=== PATIENT | female | born 1975 | race Caucasian/White ===

== ENCOUNTER → 2020-11-05 | Outpatient (CLI) | payer OTHER ==
--- NOTE | 2020-11-05 14:28 | Diagnostic Imaging Report ---
PROCEDURE: Pelvic comp/transvaginal sonogram. TECHNIQUE: Complete transabdominal and transvaginal pelvic ultrasound was performed. In addition, limited pelvic Doppler was performed. INDICATION: Ovarian cyst. Uterus is anteverted measuring 7.9 x 3.9 x 4.4 cm. Endometrium is 3 mm in thickness. There is a small cyst adjacent to the endometrium approximately 8 mm in size. Left ovary was not well visualized. Right ovary contains a large mass measuring 8.9 x 7.6 x 6.5 cm. There is internal complexity but no definite internal vascularity. This could represent a large hemorrhagic cyst. No free fluid is seen. IMPRESSION: Large complex right ovarian mass without internal vascularity. This could represent a hemorrhagic cyst. Close follow-up repeat study in 6-8 weeks would be recommended to confirm resolution. Dictated by: Dictated on workstation # [id number]
== END ==
LOC: RAD 13:00
PROVIDERS: ATTEND Obstetrics & Gynecology
DX: N83.201 Unspecified ovarian cyst, right side (principal); N83.8 Other noninflammatory disorders of ovary, fallopian tube and broad ligament
CPT/HCPCS: 76830; 76856

== ENCOUNTER 2020-11-11 05:30 | Outpatient (CLI) | payer OTHER ==
[~2020-11-11] VITALS: Ht 162.6 cm; Wt 44.5 kg
[2020-11-11] MEDS ORDERED: RT-ALBUINH IH (11:04)
[2020-11-11] MEDS ORDERED: L.AC1CAP6 PO (11:04)
[2020-11-11] MEDS ORDERED: LISI-729 PO (11:04)
[2020-11-11] MEDS ORDERED: [UNRECOGNIZED DRUG - CODE] PO (11:04)
[2020-11-11] MEDS ORDERED: MULT-974 PO (11:04)
== END 2020-11-11 11:53 | disposition home or self-care (01) ==
LOC: PREOP 05:30
PROVIDERS: ATTEND Obstetrics & Gynecology
DX: Z01.818 Encounter for other preprocedural examination (principal)

== ENCOUNTER 2020-11-18 08:57 | Inpatient (IN) | payer OTHER ==
[2020-11-18] VITALS (10 sets, daily range): BP systolic 116–150; BP diastolic 61–79
[~2020-11-18] VITALS: Ht 162.6 cm; Wt 44.5 kg
[~2020-11-18 08:57] MED LIST: L.AC1CAP6 PO; LISI-729 PO; MULT-974 PO; RT-ALBUINH IH; [UNRECOGNIZED DRUG - CODE] PO
[2020-11-18] MEDS ORDERED: LACTATED RINGERS 1,000 ML IV ONE (09:15)
[2020-11-18] MEDS ORDERED: ceFAZolin INJECTION 1,000 MG in WATER (STERILE) FOR INJECTION 10 ML IV ONE (09:15)
[2020-11-18] MEDS ORDERED: metroNIDAZOLE 500MG/100ML IVPB 100 ML IV ONE (09:15)
[2020-11-18] MEDS ORDERED: LACTATED RINGERS 1,000 ML IV PRN (09:15)
[2020-11-18 09:43] LABS: BASOPHILS # (AUTO) 0.1 10^3/uL (0.0-0.1); BASOPHILS % (AUTO) 1 % (0-10); EOSINOPHILS # (AUTO) 0.1 10^3/uL (0.0-0.3); EOSINOPHILS % (AUTO) 1 % (0-10); HEMATOCRIT 34 % (35-52); HEMOGLOBIN 10.1 g/dL (11.5-16.0); LYMPHOCYTES % (AUTO) 9 % (12-44); MEAN CORPUSCULAR HEMOGLOBIN 24 pg (25-34); MEAN CORPUSCULAR HGB CONC 30 g/dL (32-36); MEAN CORPUSCULAR VOLUME 80 fL (80-99); MEAN PLATELET VOLUME 8.8 fL (9.0-12.2); MONOCYTES # (AUTO) 0.7 10^3/uL (0.0-1.0); MONOCYTES % (AUTO) 6 % (0-12); NEUTROPHILS # (AUTO) 8.5 10^3/uL (1.8-7.8); NEUTROPHILS % (AUTO) 82 % (42-75); PLATELET COUNT 448 10^3/uL (130-400); WHITE BLOOD COUNT 10.3 10^3/uL (4.3-11.0)
[2020-11-18] MEDS ORDERED: BUPIVACAINE 0.25% 30 ML (SENSORCAINE) VIAL ONE (10:10)
[2020-11-18] MEDS ORDERED: ROCURONIUM 10 MG/ML 5 ML SYRINGE IV ONE (10:11)
[2020-11-18] MEDS ORDERED: proPOfol 200 MG/20 ML (DIPRIVAN) VIAL IV ONE (10:11)
[2020-11-18] MEDS ORDERED: ONDANSETRON 4 MG/2 ML (SDV) Z0FRAN ONE (10:11)
[2020-11-18] MEDS ORDERED: MIDAZOLAM 2 MG/2 ML (VERSED) VIAL ONE (10:11)
[2020-11-18] MEDS ORDERED: LIDOCAINE PF 2% 5 ML (XYLOCAINE) VIAL ONE (10:11)
[2020-11-18] MEDS ORDERED: fentaNYL INJ 100 MCG/2 ML AMP ONE ×2 (10:11→11:14)
[2020-11-18] MEDS ORDERED: NEOSTIGMINE 3 MG/3 ML VIAL ONE (10:16)
[2020-11-18] MEDS ORDERED: KETOROLAC 30 MG/ML VIAL ONE (10:16)
[2020-11-18] MEDS ORDERED: SEVOFLURANE (ULTANE) 15 ML INHAL SOLN ONE ×13 (10:16→13:01)
[2020-11-18] MEDS ORDERED: GLYCOPYRROLATE 0.2 MG/ML (ROBINUL) 2 ML VIAL ONE (10:16)
--- NOTE | 2020-11-18 10:20 | Progress Note-Pre Operative ---
Pre-Operative Progress Note H&P Reviewed The H&P was reviewed, patient examined and no changes noted. Date Seen by Provider: November 18, 2020 Time Seen by Provider: 10:00 Date H&P Reviewed: November 18, 2020 Time H&P Reviewed: 10:00 Pre-Operative Diagnosis: Pelvic Mass 8 cm, AUB, Dysmenorrea, CBL Anemia AVI FULLER DO November 18, 2020 10:20
--- NOTE | 2020-11-18 10:28 | Discharge Inst-Women's Service ---
Discharge Inst-Women's Serv Depart Medication/Instructions New, Converted or Re-Newed RX: RX on Chart Problems Reviewed?: Yes Consults/Follow Up Additional Follow Up: Yes Orders/Referrals Dr. Daily in 7-10 days and in 8 weeks Activity Activity: Activity as Tolerated Driving Instructions: No Driving for 1 Week NO SMOKING: NO SMOKING Nothing Inside Vagina: No Douching, No Kinderhook, No Tampons Diet Discharge Diet: No Restrictions Symptoms to Report to : Bleeding Excessive, Pain Increased, Fever Over 101 Degrees F, Vaginal Bleeding Increase, Questions/Concerns For Any Problems or Questions: Contact Your Physician Skin/Wound Care Infection Signs and Symptoms: Increased Redness, Foul Odor of Wound, Increased Drainage, Skin Itchy or Has a Rash, Increased Swelling, Temperature Above 101 F Operative Area Clean and Dry: Keep Incision Clean/Dry Stitches/Chun/Dermabond: Dermabond, Care of Stitches Bathing Instructions: AVI Horowitz DO November 18, 2020 10:28
[2020-11-18] MEDS ORDERED: HYDR-34 PO (10:30)
[2020-11-18] MEDS ORDERED: IBUP-844 PO (10:30)
[2020-11-18] MEDS ORDERED: HYDROcodone/APAP 7.5 MG/325 MG (LORTAB, LORCET PLUS) TABLET PO PRN (10:30)
[2020-11-18] MEDS ORDERED: ANTACID SUSP 30 ML UDC (MYLANTA) PO PRN (10:30)
[2020-11-18] MEDS ORDERED: CHLORASEPTIC LOZENGE MM PRN (10:30)
[2020-11-18] MEDS ORDERED: ZOLPIDEM 5 MG (AMBIEN) TAB PO PRN (10:30)
[2020-11-18] MEDS ORDERED: SMT80CT PO (10:30)
[2020-11-18] MEDS ORDERED: DCS100C PO (10:30)
[2020-11-18] MEDS ORDERED: morphine INJ 10 MG/ML 1ML (SYR OR VIAL) IVP ONE (13:30)
[2020-11-18] MEDS ORDERED: ONDANSETRON 4 MG/2 ML (SDV) Z0FRAN IVP PRN (13:30)
[2020-11-18] MEDS ORDERED: HYDROmorphone 2 MG/ML VIAL (DILAUDID) IV ONE (13:30)
[2020-11-18] MEDS ORDERED: PROMETHAZINE INJ 25 MG/ML (PHENERGAN) AMP IVP ONE (13:30)
[2020-11-18] MEDS ORDERED: MEPERIDINE (DEMEROL) INJ 50 MG/ML IVP ONE (13:30)
[2020-11-18] MEDS ORDERED: PROMETHAZINE INJ 25 MG/ML (PHENERGAN) AMP IVP PRN (14:45)
--- NOTE | 2020-11-18 14:49 | Progress Note-Post Operative ---
Post-Operative Progess Note Surgeon (s)/Food And Nutrition Services Supervisor (s) Surgeon KELSEY OLGUIN DO Food And Nutrition Services Supervisor: [place] Pre-Operative Diagnosis Pelvic Mass 8 cm, AUB, Dysmenorrea, CBL Anemia Post-Operative Diagnosis Pelvic Abscess small bowel perforation Procedure & Operative Findings Date of Procedure 11/18/20 Procedure Performed/Findings small bowel resection x 2 lysis of adhesions Anesthesia Type GET Estimated Blood Loss Estimated blood loss (mL): minimal Specimens/Packing Specimens Removed portion of small bowel KELSEY OLGUIN DO November 18, 2020 14:49
[2020-11-18] MEDS ORDERED: SCOPOLAMINE 1.5 MG (TRANSDERM-SCOP) PATCH TD NR (15:00)
[2020-11-18] MEDS: HYDROmorphone 2 MG/ML VIAL (DILAUDID) IV PRN ×2 (15:07→18:19)
--- NOTE | 2020-11-18 18:48 | OPERATIVE REPORT ---
DATE OF SERVICE: PREOPERATIVE DIAGNOSES: 1. A 45-year-old female with pelvic mass. 2. Abnormal uterine bleeding. 3. Chronic pelvic pain. 4. Chronic blood loss anemia. POSTOPERATIVE DIAGNOSES: 1. A 45-year-old female with pelvic mass. 2. Abnormal uterine bleeding. 3. Chronic pelvic pain. 4. Chronic blood loss anemia. 5. Extensive and diffuse adhesive disease of the abdomen suspicious for chronic pelvic inflammatory disease. 6. Right tubo-ovarian abscess. 7. Incidental damage to small bowel. PROCEDURES PERFORMED: 1. Laparoscopic robotic-assisted lysis of adhesions with conversion to laparotomy, total abdominal hysterectomy with bilateral salpingo-oophorectomy and removal of right-sided tubo-ovarian abscess. 2. Incidental small bowel injury with small bowel resection performed by Walter Fox DO. PRIMARY SURGEON: Shan Daily DO. CONSULTING SURGEON: Dr. Waletr Fox DO. ENGINE SERVICE REPAIRER: Faviola Rodríguez DNP, was necessary for manipulation and retraction throughout the procedure. ANESTHESIA: General endotracheal. ESTIMATED BLOOD LOSS: 200 mL. URINE OUTPUT: 350 mL clear at the end of the procedure. FLUIDS: 2000 mL lactated Ringer's solution. FINDINGS: Extensive filmy adhesions of the small bowel, large bowel as well as dense adhesions of the small bowel to the posterior aspect of the uterus. A grossly normal appearing left ovary and tube, normal appearing uterus on gross inspection and obliterated right adnexa incorporating the right fallopian tube and ovary, which is also incorporated in this large edematous mass that is filled with purulent exudate suspicious for tubo-ovarian abscess. SPECIMEN SENT: Uterus, left fallopian tube and ovary, right fallopian tube and ovary were sent separately. INDICATIONS FOR PROCEDURE: This 45-year-old female patient, who consulted to me after emergency room visit, demonstrated an 8 cm adnexal or ovarian mass. Upon ultrasound evaluation, it looked multiloculated, but she had no other concerning malignancy findings. She had a slightly elevated CA-125. This is likely due from chronic inflammation, retrospectively, when we looked at this. There was no ascites noted on CT. There was no pelvic lymphadenopathy or periaortic lymphadenopathy. Therefore, I discussed with the patient the risk of malignancy. However, I did not feel like this was the case with her. I discussed with her performing this minimally invasively. We discussed Robotic-assisted total laparoscopic hysterectomy as both a method to remove the uterus and the right ovary. She did have a history of chronic blood loss anemia and had been on iron for years. She believes it was due to her heavy periods. Risks of the procedure were discussed with the patient in detail including risk of bleeding, infection, damage to the surrounding structures including, but not limited to bowel, bladder, ureter, kidneys, possible need for reoperation, risk from anesthesia, possible need for laparotomy, possible need for reoperation, possible need for blood transfusion and even . After everything was discussed with the patient in detail, a consent was obtained in the preoperative area and the patient was taken to the operating room. OPERATIVE REPORT IN DETAIL: Once in the operating room, general anesthesia was found to be adequate, she was placed in a dorsal lithotomy position, prepped and draped in a normal sterile fashion. A timeout was performed. Dupree catheter was placed using sterile technique. Weighted speculum was inserted to the patient's vagina. Right angle retractor was used to visualize the cervix, which was fixed anteriorly and stuck to the anterior abdominal wall that you could palpate on bimanual examination. I was, however, able to grasp the cervix using a single tooth tenaculum and placed a 0 Vicryl suture through the anterior lip of the cervix and used the suture as my retraction point. I then was able to sound the uterine cavity, depth was found to be 8 cm. I placed a Leah uterine manipulator to a depth of 8 cm and I placed a 4 cm colpotomy ring around the vaginal fornix. However, due to the uterus being fixated to the anterior abdominal wall, at this point, there is no bimanual manipulation appreciated on bimanual exam. I performed a change of gloves and took my attention to the abdomen, where I began by infiltrating infraumbilically 0.25% Marcaine and made an 8 mm incision with a knife and directed a Veress needle through the incision, intraperitoneal placement was confirmed using saline drop test. An opening pressure of 5 mmHg was noted. I proceeded to max pressure of 15 mmHg, at which point, I removed the Veress needle and introduced an 8 mm laparoscopic da Adela camera trocar. Once this was in place, I was able to confirm intraperitoneal placement using the da Adela laparoscope. There was no evidence of damage from entry site; however, there were filmy adhesions throughout the entire abdomen. I was able to clear the place on the left side, so the left sided trocar was placed in similar fashion under direct visualization of the laparoscope. This allowed me to introduce EndoShears, which I was able to take down the filmy adhesions and able to visualize an entry point for my right sided trocar as well. Once this trocar was in place, I brought in the da Adela robot and docked in appropriate fashion placing the vessel sealer on the left hand and monopolar jatin on the right hand. I started by taking down these adhesions. I would say good 45 minutes to an hour worth of adhesion takedown took place to the point, where I met the dense adhesion that I was unable to safely take down. There was a concern for possible bowel injury due to the dense adhesive nature of these adhesions to the serosal surface of the posterior uterus. Therefore, general surgery was contacted to come and evaluate this further. However, I did accept the fact that I was not going to be able to complete the case laparoscopically that way. Therefore, I aborted the laparoscopic procedure and decided to proceed with laparotomy. I removed all the laparoscopic instruments and undocked the da Adela robot and scrubbed back into the case, where I made a Pfannenstiel skin incision through a previously existing scar using a knife and carried down to the underlying fascia using Bovie cautery. The fascial incision extended laterally using Bovie cautery. Superior aspect of the fascial incision was grasped with Nargis clamps, tented up and dissected off the underlying rectus muscles. The inferior aspect of the fascial incision was then grasped with Nargis clamps, tented upward and dissected off the underlying rectus muscles. This allowed me to separate the rectus muscle down the midline, entered the peritoneum using blunt traction and the pneumoperitoneum was encountered and released through the incision. I then was able to open up the peritoneum down the midline of the rectus muscles. This gave me access to the peritoneal cavity after which I placed an extra-large Kemal ring retractor in peritoneal incision, which offers excellent lateral sidewall retraction. I, at this point, was joined by the general surgeon, Dr. Walter Fox, who evaluated what is going on. So far, there was one small opening in the small bowel that was noted at that point. We continued with the hysterectomy portion and were able to free up the posterior aspect of the uterus. In doing so, a second laceration of the small bowel was noted as well. We then isolated the infundibulopelvic ligament on the left side. Using a LigaSure, we bipolar cauterized the seal and transected this. I then took this down the left broad ligament until I encountered the round ligament, which I, in similar fashion sealed and transected using the vessel sealer LigaSure device. I then the anterior and posterior leaves of the broad ligament. Anterior leaflet was taken around the anterior vaginal fornix and posterior leaflets was taken around the posterior vaginal fornix. This allowed me to skeletonize the uterine vessels laterally, which I bipolar cauterized, sealed and transected using the LigaSure. On the right side, I started at the uteroovarian ligament, which we were able to isolate therefore taking down these adhesions. I sealed and cut with the LigaSure across this as well as the round ligament. This allowed me to skeletonize the uterine vessels laterally once I opened up the broad ligament. The uterine vessels were then sealed and transected using the LigaSure as well. I then was able to create a colpotomy at the 12 o'clock position on the colpotomy ring of the Leah, which can be palpated. This was taken down using a Bovie cautery circumferentially around the vaginal fornix amputating the uterus away from the vagina. The cyst wall and dense adhesions of the cyst tissue was then encountered and carefully meticulously dissected away from the pelvic sidewall, staying clear of the ureters and identifying the ureters on the way down. We were able to isolate the infundibulopelvic ligament on the right side, which we were able to seal and transect using the LigaSure. The entire specimen was then removed as well and sent separately as right ovary, at which point, there were several small serosal lacerations as well as two lacerations all the way through to the lumen of the small bowel that are noted by the general surgeon. Please see his operative report for complete details pertaining to repairing all of these after which we copiously irrigated the pelvis using normal saline. Once again, there was no active bleeding noted from any of my dissection planes or the vagina. We closed the vaginal cuff using 0 Vicryl suture in a [id number]-[id number] interrupted fashion and placed Surgiflo hemostatic agent over all my planes of dissection across the vaginal cuff. At that point, procedure was deemed complete and we removed the Kemal ring retractor. I then proceeded with closing the peritoneum using 3-0 Vicryl suture in a running fashion. The rectus muscle was reapproximated using 3-0 Vicryl suture in an interrupted fashion. The fascia was reapproximated using 0 Vicryl suture in a running fashion and the skin was reapproximated with oseas. The trocar sites were reapproximated using 4-0 Monocryl in interrupted subcuticular stitches. Dermabond was applied to those incisions and Band-Aids were placed over these incisions as well. Dupree catheter was left in place. The patient tolerated the procedure well and sent to recovery area in stable condition. Lap and sponge counts were correct at the end of the procedure. Instrument counts were correct as well. One gram of Ancef, 500 mg of Flagyl were given preoperatively for infection prophylaxis. Job ID: [id number] DocumentID: [id number] Dictated Date: 11/18/2020 13:50:52 Freelance Programmer/App Developer Date: 11/18/2020 18:47:48 Dictated By: SHAN DAILY DO
[2020-11-18] MEDS: LACTATED RINGERS 1,000 ML IV SCH (19:01)
[2020-11-18] MEDS: ceFAZolin INJECTION 1,000 MG in WATER (STERILE) FOR INJECTION 10 ML IV SCH (19:32)
[2020-11-18] MEDS: metroNIDAZOLE 500MG/100ML IVPB 100 ML IV SCH (21:25)
[2020-11-18] MEDS: KETOROLAC 30 MG/ML VIAL IV PRN (21:25)
[2020-11-19] VITALS (7 sets, daily range): BP systolic 111–134; BP diastolic 56–66
[2020-11-19] MEDS: HYDROmorphone 2 MG/ML VIAL (DILAUDID) IV PRN ×2 (00:30→06:53)
[2020-11-19] MEDS: LACTATED RINGERS 1,000 ML IV SCH ×2 (00:56→03:34)
[2020-11-19] MEDS ORDERED: KETOROLAC 30 MG/ML VIAL ONE (02:51)
[2020-11-19] MEDS: KETOROLAC 30 MG/ML VIAL IV PRN (03:34)
[2020-11-19] MEDS: ceFAZolin INJECTION 1,000 MG in WATER (STERILE) FOR INJECTION 10 ML IV SCH ×3 (03:34→18:51)
[2020-11-19 05:38] LABS: BASOPHILS % (AUTO) 0 % (0-10); EOSINOPHILS % (AUTO) 0 % (0-10); HEMATOCRIT 25 % (35-52); HEMOGLOBIN 7.6 g/dL (11.5-16.0); LYMPHOCYTES # (AUTO) 1.3 10^3/uL (1.0-4.0); LYMPHOCYTES % (AUTO) 10 % (12-44); MEAN CORPUSCULAR HEMOGLOBIN 24 pg (25-34); MEAN CORPUSCULAR HGB CONC 31 g/dL (32-36); MEAN CORPUSCULAR VOLUME 80 fL (80-99); MEAN PLATELET VOLUME 9.1 fL (9.0-12.2); MONOCYTES # (AUTO) 0.9 10^3/uL (0.0-1.0); MONOCYTES % (AUTO) 7 % (0-12); NEUTROPHILS # (AUTO) 10.7 10^3/uL (1.8-7.8); NEUTROPHILS % (AUTO) 83 % (42-75); PLATELET COUNT 413 10^3/uL (130-400); WHITE BLOOD COUNT 12.9 10^3/uL (4.3-11.0)
[2020-11-19] MEDS: IBUPROFEN 600 MG (MOTRIN) TAB PO SCH ×3 (06:17→22:33)
--- NOTE | 2020-11-19 07:00 | Anesthesia-General Post-Op ---
General Patient Condition Mental Status/LOC: Same as Preop Cardiovascular: Satisfactory Nausea/Vomiting: Absent Respiratory: Satisfactory Pain: Controlled Complications: Absent Post Op Complications Complications None Follow Up Care/Instructions Patient Instructions None needed. Anesthesia/Patient Condition Patient Condition Patient is doing well, no complaints, stable vital signs, no apparent adverse anesthesia problems. No complications reported per nursing. TERESSA STILES CRNA November 19, 2020 07:00
--- NOTE | 2020-11-19 08:02 | Progress Note ---
Standard Progress Note Progress Notes/Assess & Plan Date Seen by a Provider: November 19, 2020 Time Seen by a Provider: 07:58 Progress/Assessment & Plan Patient doing well POD 1 Laparotomy w/ DAVE and BSO, extensive CLARITA, and SB repair/ resection. Reports no nausea and is requesting to eat, has been NPO overnight. Denies uncontrolled pain. Dupree catheter removed this morning. Incisions: c/d/i Laboratory Tests Test 11/18/20 09:32 11/19/20 05:17 Range/Units White Blood Count 10.3 12.9 H 4.3-11.0 10^3/uL Red Blood Count 4.19 3.12 L 3.80-5.11 10^6/uL Hemoglobin 10.1 L 7.6 #L 11.5-16.0 g/dL Hematocrit 34 L 25 L 35-52 % Mean Corpuscular Volume 80 80 80-99 fL Mean Corpuscular Hemoglobin 24 L 24 L 25-34 pg Mean Corpuscular Hemoglobin Concent 30 L 31 L 32-36 g/dL Red Cell Distribution Width 20.0 H 19.7 H 10.0-14.5 % Platelet Count 448 H 413 H 130-400 10^3/uL Mean Platelet Volume 8.8 L 9.1 9.0-12.2 fL Immature Granulocyte % (Auto) 0 0 % Neutrophils (%) (Auto) 82 H 83 H 42-75 % Lymphocytes (%) (Auto) 9 L 10 L 12-44 % Monocytes (%) (Auto) 6 7 0-12 % Eosinophils (%) (Auto) 1 0 0-10 % Basophils (%) (Auto) 1 0 0-10 % Neutrophils # (Auto) 8.5 H 10.7 H 1.8-7.8 10^3/uL Lymphocytes # (Auto) 1.0 1.3 1.0-4.0 10^3/uL Monocytes # (Auto) 0.7 0.9 0.0-1.0 10^3/uL Eosinophils # (Auto) 0.1 0.0 0.0-0.3 10^3/uL Basophils # (Auto) 0.1 0.0 0.0-0.1 10^3/uL Immature Granulocyte # (Auto) 0.0 0.0 0.0-0.1 10^3/uL Vital Sign - Last 24 Hours 5/10/21 5/10/21 5/10/21 5/10/21 13:26 13:26 13:30 13:40 Temp 37.6 Resp 16 16 B/P (MAP) 117/74 (88) 131/75 (93) Pulse Ox 100 100 O2 Delivery OxyMask OxyMask OxyMask OxyMask O2 Flow Rate 10 10 8 8 11/18/20 11/18/20 11/18/20 11/18/20 13:40 13:50 14:00 14:00 Resp 14 15 16 B/P (MAP) 150/79 (102) 125/72 (89) 121/64 (83) Pulse Ox 100 100 100 O2 Delivery OxyMask OxyMask OxyMask OxyMask O2 Flow Rate 6 3 2 2 11/18/20 11/18/20 11/18/20 11/18/20 14:10 14:15 14:20 14:23 Temp 37.0 Resp 14 14 B/P (MAP) 118/65 (82) 127/65 (85) Pulse Ox 100 100 O2 Delivery Room Air Room Air Room Air Room Air 11/18/20 11/18/20 11/18/20 11/19/20 14:35 17:05 19:50 00:30 Temp 36.7 37.3 37.0 37.2 Pulse 92 102 95 102 Resp 20 20 20 20 B/P (MAP) 116/65 (82) 130/78 (95) 116/61 (79) 127/64 (85) Pulse Ox 98 99 99 98 O2 Delivery Room Air Room Air Room Air Room Air 11/19/20 03:34 Temp 37.0 Pulse 99 Resp 18 B/P (MAP) 120/66 (84) Pulse Ox 98 O2 Delivery Room Air Intake and Output 11/18/20 11/18/20 11/19/20 15:00 23:00 07:00 Intake Total 1510 ml 1100 ml Output Total 550 ml 90 ml 460 ml Balance 960 ml 1010 ml -460 ml Diagnosis: POD 1 Laparotomy w/ DAVE and BSO, extensive CLARITA, and SB repair/ resection Acute blood loss anemia superimposed on chronic blood loss anemia P: Advance diet to CLD today possible soft this afternoon Encourage ambulation Continue antibiotic until tomorrow AVI FULLER DO November 19, 2020 08:02
[2020-11-19] MEDS: metroNIDAZOLE 500MG/100ML IVPB 100 ML IV SCH ×2 (09:26→21:01)
[2020-11-19] MEDS ORDERED: KETOROLAC 30 MG/ML VIAL IV PRN (11:00)
[2020-11-19] MEDS ORDERED: ACETAMINOPHEN 500 MG TAB (TYLENOL) ONE (15:34)
[2020-11-19] MEDS ORDERED: ACETAMINOPHEN 500 MG TAB (TYLENOL) PO NR (15:45)
--- NOTE | 2020-11-19 16:19 | OPERATIVE REPORT ---
DATE OF SERVICE: 11/18/2020 PREOPERATIVE DIAGNOSIS: Small bowel perforation. POSTOPERATIVE DIAGNOSES: Small bowel perforation, adhesions tubo-ovarian abscess. PROCEDURE: Small bowel resection x2 as well as lysis of adhesions. SURGEON: Walter Fox DO MEAT PASSER: Dr. Daily. ANESTHESIA: General endotracheal tube. SPECIMEN: Portion of small bowel. BLOOD LOSS: Minimal. FLUIDS: Per anesthesia. POSTOPERATIVE CONDITION: Stable. INDICATION FOR PROCEDURE: Small bowel perforation. PROCEDURE NOTE: The patient is a 45-year-old female who was in the operating room for a hysterectomy and removal of tubo-ovarian abscess. When a small bowel perforation was found, I was called in to assist in this case. I took over to do the small bowel resection. FINDINGS: The patient had large tubo-ovarian abscess on the right and had a lot of small intestine stuck down in the pelvis next to this tubo-ovarian abscess as well as the sigmoid stuck in there. I clamped off the superior portion of the intestine and we started helped Dr. Daily finish taking out the uterus, helped him delineate the tube and ovary on the right as well as then on the left. Once we had removed all this, then started taking the small bowel out of the pelvis to then lysing adhesions and freeing up everything, so we could start running the small bowel, found actually two perforations. I believe one of them may have been just from trying to get the small bowel out of the pelvis, resected this with a FAHAD 55 on either side in either the inferior and superior limb of the small intestine, clamped a FAHAD 55, held for 30 seconds, then fired and then used another reload to cut off the enteroenterotomy and then used the LigaSure to close the mesenteric defect and then running the small bowel went to the larger and the initial perforation. Again used a FAHAD 55 through the opening of the perforation, this was about 15 to 20 cm from the other perforation. Another FAHAD 55 clamped held for 30 seconds and then fired and then another AFHAD 55 reload to come across the enteroenterotomy to close this, this closed nicely. There was a serosal tear on the sigmoid. This was closed with 3-0 Vicryl pop-offs, 3 awarba-av-rdurq sutures and one simple suture as well as another serosal tear on the small intestine was closed with 3-0 Vicryl pop-offs, 2 rzkxam-rx-wneje suture closed this nicely. The abdomen was then copiously irrigated with normal saline, 2 liters warm normal saline, suctioned this out. There was no bleeding, tried to run some of the smaller, rest of the small bowel could not get up very high because there is some more adhesions up here and this was a Pfannenstiel incision, but felt comfortable that we had looked at and taken care of everything that was in the pelvis and near the tubo-ovarian abscess. At this point, I then scrubbed out and looked Dr. Daily finish the case. Job ID: [id number] DocumentID: [id number] Dictated Date: 11/19/2020 10:21:47 History Professor Date: 11/19/2020 16:18:26 Dictated By: WALTER FOX DO
[2020-11-19] MEDS: SIMETHICONE 80 MG (MYLICON) CHEW PO PRN ×2 (17:50→22:01)
[2020-11-19 17:52] LABS: BASOPHILS % (AUTO) 0 % (0-10); EOSINOPHILS # (AUTO) 0.1 10^3/uL (0.0-0.3); EOSINOPHILS % (AUTO) 1 % (0-10); HEMATOCRIT 24 % (35-52); HEMOGLOBIN 7.5 g/dL (11.5-16.0); LYMPHOCYTES # (AUTO) 1.2 10^3/uL (1.0-4.0); LYMPHOCYTES % (AUTO) 12 % (12-44); MEAN CORPUSCULAR HEMOGLOBIN 25 pg (25-34); MEAN CORPUSCULAR HGB CONC 31 g/dL (32-36); MEAN CORPUSCULAR VOLUME 80 fL (80-99); MEAN PLATELET VOLUME 8.6 fL (9.0-12.2); MONOCYTES # (AUTO) 0.7 10^3/uL (0.0-1.0); MONOCYTES % (AUTO) 7 % (0-12); NEUTROPHILS # (AUTO) 8.4 10^3/uL (1.8-7.8); NEUTROPHILS % (AUTO) 80 % (42-75); PLATELET COUNT 382 10^3/uL (130-400); WHITE BLOOD COUNT 10.5 10^3/uL (4.3-11.0)
--- NOTE | 2020-11-19 18:35 | Progress Note - Surgery ---
Subjective Time Seen by a Provider: 13:01 Subjective/Events-last exam Pt seen and examined, she looks great with pain well controlled. States she has been "walking laps" and using IS. She has not had any flatus or BMs. She tolerated some soft food and was asking when she could come home. Nurse stated pt had been running low grade fever all day and then around 5pm, had temp over 101 and had some abdominal distention. I saw her again around 5pm and she still looked ok, but possibly a little sick. She stated she ran a temp after her last and thought that her stomach was maybe slightly distended, didn't really have any more abdominal pain. Still no flatus. Review of Systems General: Fatigue, Malaise Pulmonary: No Dyspnea, No Cough Cardiovascular: No: Chest Pain, Palpitations Gastrointestinal: Abdominal Pain; No: Nausea, Vomiting Objective Exam Vital Signs Date Time Temp Pulse Resp B/P (MAP) Pulse Ox O2 Delivery O2 Flow Rate FiO2 11/19/20 17:05 38.6 100 18 134/63 (86) 100 Room Air 11/19/20 12:40 37.9 90 18 128/61 (83) 100 Room Air 11/19/20 09:15 37.7 94 18 111/58 (75) 97 Room Air 11/19/20 03:34 37.0 99 18 120/66 (84) 98 Room Air 11/19/20 00:30 37.2 102 20 127/64 (85) 98 Room Air 11/18/20 19:50 37.0 95 20 116/61 (79) 99 Room Air I & O 11/19/20 07:00 Intake Total 2610 ml Output Total 1100 ml Balance 1510 ml Capillary Refill : General Appearance: No Apparent Distress, WD/WN, Other (Looked slightly worse when I saw pt again in afternoon) Respiratory: Lungs Clear, Normal Breath Sounds, No Accessory Muscle Use, No Respiratory Distress Gastrointestinal: soft, distended (very slightly, but more than at 1pm), tenderness (minimal diffusely but more in suprapubic area), other (incisions are c/d/i) Neurologic/Psychiatric: Alert, Oriented x3 Results Lab Laboratory Tests 11/19/20 05:17: White Blood Count 12.9H, Red Blood Count 3.12L, Hemoglobin 7.6#L, Hematocrit 25L , Mean Corpuscular Volume 80, Mean Corpuscular Hemoglobin 24L, Mean Corpuscular Hemoglobin Concent 31L, Red Cell Distribution Width 19.7H, Platelet Count 413H, Mean Platelet Volume 9.1, Immature Granulocyte % (Auto) 0, Neutrophils (%) (Auto) 83H, Lymphocytes (%) (Auto) 10L, Monocytes (%) (Auto) 7, Eosinophils (%) (Auto) 0, Basophils (%) (Auto) 0, Neutrophils # (Auto) 10.7H, Lymphocytes # (Auto) 1.3, Monocytes # (Auto) 0.9, Eosinophils # (Auto) 0.0, Basophils # (Auto) 0.0, Immature Granulocyte # (Auto) 0.0 11/19/20 17:45: White Blood Count 10.5, Red Blood Count 3.02L, Hemoglobin 7.5L, Hematocrit 24L, Mean Corpuscular Volume 80, Mean Corpuscular Hemoglobin 25, Mean Corpuscular Hemoglobin Concent 31L, Red Cell Distribution Width 19.7H, Platelet Count 382, Mean Platelet Volume 8.6L, Immature Granulocyte % (Auto) 1, Neutrophils (%) (Auto) 80H, Lymphocytes (%) (Auto) 12, Monocytes (%) (Auto) 7, Eosinophils (%) (Auto) 1, Basophils (%) (Auto) 0, Neutrophils # (Auto) 8.4H, Lymphocytes # (Auto) 1.2, Monocytes # (Auto) 0.7, Eosinophils # (Auto) 0.1, Basophils # (Auto) 0.0, Immature Granulocyte # (Auto) 0.1 Microbiology 11/18/20 MRSA Screen - Final, Complete MRSA not isolated Assessment/Plan Assessment/Plan Assessment/Plan S/P SBR x 2 Mild abdominal distention Elevated temp I think pt probably just had mild distention because she has not had any flatus. She can continue soft diet or go to clears. She should continue to ambulate an d use IS. Chewing gum may help, because it helps with return of bowel function. Dr. Daily repeated a CBC; it looked basically the same with Hg stable and WBC actually down to 10.5 from 12.4. We will see how she does overnight and in the am. She had no questions. KELSEY OLGUIN DO November 19, 2020 18:35
[2020-11-20] MEDS: IBUPROFEN 600 MG (MOTRIN) TAB PO SCH ×5 (00:59→21:19)
[2020-11-20] MEDS: LACTATED RINGERS 1,000 ML IV SCH (02:46)
[2020-11-20] MEDS: ceFAZolin INJECTION 1,000 MG in WATER (STERILE) FOR INJECTION 10 ML IV SCH ×3 (02:46→19:35)
[2020-11-20 03:59] VITALS: BP 119/63
--- NOTE | 2020-11-20 08:15 | Progress Note ---
Standard Progress Note Progress Notes/Assess & Plan Date Seen by a Provider: November 20, 2020 Time Seen by a Provider: 08:15 Progress/Assessment & Plan Patient doing well POD 2 Laparotomy w/ DAVE and BSO, extensive CLARITA, and SB repair/ resection. Reports no nausea and but no flatus still. She reports she can feel her bowel "gurgling". Her pain is fairly well controlled but she is not taking any narcotic pain meds, only motrin and tylenol. Incisions: c/d/i Abdomen: soft/ mildly tender diffusely and mildly distended. Incision: c/d/i- oseas in place Laboratory Tests Test 11/19/20 17:45 Range/Units White Blood Count 10.5 4.3-11.0 10^3/uL Red Blood Count 3.02 L 3.80-5.11 10^6/uL Hemoglobin 7.5 L 11.5-16.0 g/dL Hematocrit 24 L 35-52 % Mean Corpuscular Volume 80 80-99 fL Mean Corpuscular Hemoglobin 25 25-34 pg Mean Corpuscular Hemoglobin Concent 31 L 32-36 g/dL Red Cell Distribution Width 19.7 H 10.0-14.5 % Platelet Count 382 130-400 10^3/uL Mean Platelet Volume 8.6 L 9.0-12.2 fL Immature Granulocyte % (Auto) 1 % Neutrophils (%) (Auto) 80 H 42-75 % Lymphocytes (%) (Auto) 12 12-44 % Monocytes (%) (Auto) 7 0-12 % Eosinophils (%) (Auto) 1 0-10 % Basophils (%) (Auto) 0 0-10 % Neutrophils # (Auto) 8.4 H 1.8-7.8 10^3/uL Lymphocytes # (Auto) 1.2 1.0-4.0 10^3/uL Monocytes # (Auto) 0.7 0.0-1.0 10^3/uL Eosinophils # (Auto) 0.1 0.0-0.3 10^3/uL Basophils # (Auto) 0.0 0.0-0.1 10^3/uL Immature Granulocyte # (Auto) 0.1 0.0-0.1 10^3/uL Vital Sign - Last 24 Hours 11/19/20 11/19/20 11/19/20 11/19/20 09:15 12:40 17:05 20:16 Temp 37.7 37.9 38.6 37.6 Pulse 94 90 100 95 Resp 18 18 18 B/P (MAP) 111/58 (75) 128/61 (83) 134/63 (86) 120/56 (77) Pulse Ox 97 100 100 98 O2 Delivery Room Air Room Air Room Air Room Air 11/19/20 11/20/20 23:39 03:59 Temp 37.6 37.2 Pulse 94 83 Resp 18 18 B/P (MAP) 130/58 (82) 119/63 (81) Pulse Ox 98 97 O2 Delivery Room Air Room Air Intake and Output 11/19/20 11/19/20 11/20/20 14:59 22:59 06:59 Intake Total 700 ml 500 ml Output Total 600 ml 900 ml Balance 100 ml -400 ml Diagnosis: POD 2 Laparotomy w/ DAVE and BSO, extensive CLARITA, and SB repair/ resection Acute blood loss anemia superimposed on chronic blood loss anemia P: Will attempt to advance diet again today Encourage ambulation Will dc today with flatulance/or BM AVI FULLER DO November 20, 2020 08:15
[2020-11-20 09:10] VITALS: BP 132/76
[2020-11-20] MEDS: DOCUSATE SODIUM 100 MG (COLACE) CAP PO PRN (09:12)
[2020-11-20] MEDS: metroNIDAZOLE 500MG/100ML IVPB 100 ML IV SCH ×2 (10:11→22:31)
[2020-11-20] MEDS: ONDANSETRON 4 MG/2 ML (SDV) Z0FRAN IV PRN ×2 (10:33→15:54)
--- NOTE | 2020-11-20 12:30 | Discharge Inst-Surgical ---
Discharge Inst-Surgical Depart Medication/Instructions New, Converted or Re-Newed RX: Other Patient Instructions Follow up Appt: Make appointment for 1 week. [phone] Instructions: No lifting greater than 20 pounds. No strenuous activity. May shower in 24 hours, no tub bath or soaking. Use incentive spirometer at home as directed. No Smoking Skin/Wound Care: May remove bandages in am. You need to leave the Dermabond on incision it will fall off on it's own. Symptoms to Report: Appetite Changes, Extremity Discoloration, Numbness/Tingling, Swelling Increased, Bleeding Excessive, Eyesight Changes, Pain Increased, Urine Color Change, Constipation(Persistent), Fever over 101 degree F, Pain/Pressure in chest, Urinating Difficulty, Cough Up/Vomit Blood, Heart Beat Irreg/Pounding, Pain/Pressure in jaw, Cramps in feet or legs, Lightheadedness, Pain/Pressure in shoulder, Diarrhea(Persistent), Memory Changes Suddenly, Questions/Concerns, Weight gain consecutive days, Dizziness/Fainting, Nausea/Vomiting, Shortness of Breath, Weight gain over 2 pounds If questions or concerns contact your physician Or seek help at emergency department. Activity Activity as Tolerated: Yes Activity Instructions: Avoid Stress to Incision Driving Instructions: No Driving/Refer to Dr. Aburto Discharge Diet: No Restrictions Diet After 24 Hours: Clear Liquid if Nauseous If Any Problems/Questions/Issu: Contact Your Physician, Go to Emergency Room Skin/Wound Care Infection Signs and Symptoms: Increased Redness, Foul Odor of Wound, Increased Drainage, Skin Itchy or Has a Rash, Increased Swelling, Temperature Above 101 F Bathing Instructions: Shower Stitches/[place]/Dermabond Dis: Care of KELSEY Toribio DO November 20, 2020 12:30
--- NOTE | 2020-11-20 12:30 | Progress Note - Surgery ---
Subjective Time Seen by a Provider: 10:21 Subjective/Events-last exam Pt seen and examined, she was standing up ready to go for a walk. Reports 2 episodes of flatus, but felt a little nauseous. Review of Systems Pulmonary: No Dyspnea, No Cough Cardiovascular: No: Chest Pain, Palpitations Gastrointestinal: Nausea, Abdominal Pain (minimal); No: Vomiting Objective Exam Vital Signs Date Time Temp Pulse Resp B/P (MAP) Pulse Ox O2 Delivery O2 Flow Rate FiO2 11/20/20 09:10 37.1 98 18 132/76 (94) 97 Room Air 11/20/20 03:59 37.2 83 18 119/63 (81) 97 Room Air 11/19/20 23:39 37.6 94 18 130/58 (82) 98 Room Air 11/19/20 20:16 37.6 95 18 120/56 (77) 98 Room Air 11/19/20 17:05 38.6 100 18 134/63 (86) 100 Room Air 11/19/20 12:40 37.9 90 18 128/61 (83) 100 Room Air I & O 11/20/20 07:00 Intake Total 1200 ml Output Total 1500 ml Balance -300 ml Capillary Refill : General Appearance: No Apparent Distress, WD/WN, Other (Looked slightly worse when I saw pt again in afternoon) Respiratory: Lungs Clear, Normal Breath Sounds, No Accessory Muscle Use, No Respiratory Distress Gastrointestinal: soft, distended (very slightly, about same as yesterdaya), tenderness (minimal diffusely but more in suprapubic area), other (incisions are c/d/i) Neurologic/Psychiatric: Alert, Oriented x3 Results Lab Laboratory Tests 11/19/20 17:45: White Blood Count 10.5, Red Blood Count 3.02L, Hemoglobin 7.5L, Hematocrit 24L, Mean Corpuscular Volume 80, Mean Corpuscular Hemoglobin 25, Mean Corpuscular Hemoglobin Concent 31L, Red Cell Distribution Width 19.7H, Platelet Count 382, Mean Platelet Volume 8.6L, Immature Granulocyte % (Auto) 1, Neutrophils (%) (Auto) 80H, Lymphocytes (%) (Auto) 12, Monocytes (%) (Auto) 7, Eosinophils (%) (Auto) 1, Basophils (%) (Auto) 0, Neutrophils # (Auto) 8.4H, Lymphocytes # (Auto) 1.2, Monocytes # (Auto) 0.7, Eosinophils # (Auto) 0.1, Basophils # (Auto) 0.0, Immature Granulocyte # (Auto) 0.1 Microbiology 11/18/20 MRSA Screen - Final, Complete MRSA not isolated Assessment/Plan Assessment/Plan Assessment/Plan S/P SBR x 2 Mild abdominal distention Elevated temp She can continue soft diet or go to clears. She should continue to ambulate and use IS. Chewing gum may help, because it helps with return of bowel function. Probably ok to go today as long as she feels better in the afternoon KELSEY OLGUIN DO November 20, 2020 12:30
[2020-11-20] MEDS: SIMETHICONE 80 MG (MYLICON) CHEW PO PRN (15:54)
[2020-11-20 15:58] VITALS: BP 119/64
[2020-11-20] MEDS ORDERED: BISACODYL 10 MG SUPP (DULCOLAX) PR NR (16:15)
[2020-11-20] MEDS ORDERED: METOCLOPRAMIDE INJ 10 MG/2 ML (REGLAN) IVP SCH (18:00)
[2020-11-20 20:00] VITALS: BP 139/71
[2020-11-20] MEDS ORDERED: diphenhydrAMINE 25 MG TAB (BENADRYL) PO ONE (20:18)
[2020-11-20] MEDS ORDERED: diphenhydrAMINE 25 MG TAB (BENADRYL) PO NR (20:30)
[2020-11-21 00:15] VITALS: BP 135/66
[2020-11-21] MEDS: IBUPROFEN 600 MG (MOTRIN) TAB PO SCH ×2 (04:08→10:05)
[2020-11-21 04:09] VITALS: BP 131/70
[2020-11-21 09:50] VITALS: BP 132/68
[2020-11-21] MEDS: DOCUSATE SODIUM 100 MG (COLACE) CAP PO PRN (10:06)
== END 2020-11-21 10:20 | disposition home or self-care (01) | DRG 742 ==
LOC: SDC 08:57 → WS 08:57 → EDSTATUS 10:30 → SDC 14:26 → WS 14:26 → SDC 11-21 10:20 → WS 11-21 10:20
PROVIDERS: ADMIT Obstetrics & Gynecology; ATTEND Obstetrics & Gynecology
PROC: 0UT90ZZ Resection of Uterus, Open Approach (ICD-10-PCS; 2020-11-18)
PROC: 0UT20ZZ Resection of Bilateral Ovaries, Open Approach (ICD-10-PCS; 2020-11-18)
PROC: 0UT70ZZ Resection of Bilateral Fallopian Tubes, Open Approach (ICD-10-PCS; 2020-11-18)
PROC: 0DNW4ZZ Release Peritoneum, Percutaneous Endoscopic Approach (ICD-10-PCS; 2020-11-18)
PROC: 0DB80ZZ Excision of Small Intestine, Open Approach (ICD-10-PCS; principal; 2020-11-18 10:33)
DX: N70.93 Salpingitis and oophoritis, unspecified (principal); D62 Acute posthemorrhagic anemia; N93.9 Abnormal uterine and vaginal bleeding, unspecified; R10.2 Pelvic and perineal pain; D50.0 Iron deficiency anemia secondary to blood loss (chronic); K66.0 Peritoneal adhesions (postprocedural) (postinfection); F17.210 Nicotine dependence, cigarettes, uncomplicated; Z88.6 Allergy status to analgesic agent
CPT/HCPCS: 36415; 84703; 85025; 86850; 86900; 86901; 87081; 88307

== ENCOUNTER 2022-04-02 12:37 | Emergency (ER) | payer OTHER ==
[~2022-04-02] VITALS: Ht 162 cm; Wt 39.0 kg
[~2022-04-02 12:37] MED LIST changes: +DOCU-239 PO; +HYDR-34 PO; +IBUP-844 PO; -LISI-729 PO; +LISI5TAB20 PO; +SMT80CT PO
[2022-04-02 13:14] LABS: BASOPHILS # (AUTO) 0.1 10^3/uL (0.0-0.1); BASOPHILS % (AUTO) 1 % (0-10); EOSINOPHILS # (AUTO) 0.1 10^3/uL (0.0-0.3); EOSINOPHILS % (AUTO) 1 % (0-10); HEMATOCRIT 44 % (35-52); HEMOGLOBIN 15.4 g/dL (11.5-16.0); LYMPHOCYTES # (AUTO) 1.4 10^3/uL (1.0-4.0); LYMPHOCYTES % (AUTO) 14 % (12-44); MEAN CORPUSCULAR HEMOGLOBIN 33 pg (25-34); MEAN CORPUSCULAR HGB CONC 35 g/dL (32-36); MEAN CORPUSCULAR VOLUME 94 fL (80-99); MEAN PLATELET VOLUME 9.6 fL (9.0-12.2); MONOCYTES % (AUTO) 10 % (0-12); NEUTROPHILS # (AUTO) 7.8 10^3/uL (1.8-7.8); NEUTROPHILS % (AUTO) 75 % (42-75); PLATELET COUNT 455 10^3/uL (130-400); WHITE BLOOD COUNT 10.4 10^3/uL (4.3-11.0)
[2022-04-02] MEDS ORDERED: METOCLOPRAMIDE INJ 10 MG/2 ML (REGLAN) IVP ONE (13:15)
[2022-04-02] MEDS ORDERED: NS IV 1000 ML 1,000 ML IV SCH (13:15)
[2022-04-02 13:43] LABS: ALANINE AMINOTRANSFERASE 27 U/L (0-55); ALBUMIN 4.7 GM/DL (3.2-4.5); ALKALINE PHOSPHATASE 86 U/L (40-136); BILIRUBIN,TOTAL 0.3 MG/DL (0.1-1.0); BUN/CREATININE RATIO 23; CALCIUM 11.3 MG/DL (8.5-10.1); CARBON DIOXIDE 28 MMOL/L (21-32); CHLORIDE 92 MMOL/L (98-107); CREATININE SERUM 1.47 MG/DL (0.60-1.30); GFR ESTIMATED 44; GLUCOSE 126 MG/DL (70-105); LIPASE 113 U/L (8-78); POTASSIUM 3.2 MMOL/L (3.6-5.0); SODIUM 140 MMOL/L (135-145); TOTAL PROTEIN 8.5 GM/DL (6.4-8.2)
--- NOTE | 2022-04-02 13:51 | ED GI ---
General Chief Complaint: Abdominal/GI Problems Stated Complaint: VOMITING/CONSTIPATION Nursing Triage Note: Pt here with abdominal pain, vomiting, and dizziness. Pt was recently admitted to [facility] for same complaint and had CT and blood work and sent home with bowel rest and liquid diet. Pt left AMA after 2 days. Pt reports no improvement. Pt last BM was 4 days ago. Source of Information: Patient Exam Limitations: No Limitations History of Present Illness Date Seen by Provider: Apr 02, 2022 Time Seen by Provider: 13:00 Initial Comments Patient is a 46 yo F who presents to the ED with constipation, abdominal pain, and vomiting that began on Wednesday. Patient was seen at [facility] on Wednesday and was admitted. She was on bowel rest and antiemetics until she left AMA on Wednesday. She states she left due to "them not doing anything." She states her lower abdominal pain has improved in the interim. She states she has had two episodes of emesis today. She states she is also weak and feels "drained". Patient denies any known sick contacts. No recent abdominal trauma or surgery. Pt is s/p hysterectomy and thus amennhoric. Pt states she had abdominal surgery including bowel resection in the past. States she does intermittently have constipation but nothing like she is currently experiencing. Timing/Duration: Other (6 days) Severity/Quality: Moderate Radiation: No Radiation Associated Symptoms: No Chest Pain, No Fever/Chills; Nausea/Vomiting; No Shortness of Air Allergies and Home Medications Allergies Uncoded Allergies: OPIOIDS (Adverse Reaction, Mild, Vomiting, 11/11/20) REPORTS SENSITIVITY TO OPIOIDS-N/V Patient Home Medication List Home Medication List Reviewed: Yes Albuterol Sulfate (Proair Hfa) 1 Puff Puff, 2 PUFF IH Q4H, (Reported) Entered as Reported by: MUTMAZ NUR on 11/11/20 1104 Docusate Sodium (Dok) 100 Mg Capsule, 100 MG PO BID PRN for CONSTIPATION-1ST LINE Prescribed by: AVI FULLER on 11/18/20 1030 Ephedrine Sulfate (Bronkaid Max) 25 Mg Tablet, 25 MG PO BID, (Reported) Entered as Reported by: MUMTAZ NUR on 11/11/20 1104 Hydrocodone Bit/Acetaminophen (HYDROcodone/APAP 7.5/325 TAB) 1 Ea Tablet, 2 EA PO Q6H PRN for Pain-See Instructions Prescribed by: AVI FULLER on 11/18/20 1030 Ibuprofen (Ibu) 600 Mg Tablet, 600 MG PO Q6H PRN for CRAMPS Prescribed by: AVI FULLER on 11/18/20 1030 L.acidoph & Paracasei,B.lactis (Probiotic) 1 Each Capsule, 1 EACH PO DAILY, (Reported) Entered as Reported by: MUMTAZ NUR on 11/11/20 1104 Lisinopril (Lisinopril) 5 Mg Tablet, 5 MG PO DAILY, (Reported) Entered as Reported by: MUMTAZ NUR on 11/11/20 1104 Multivitamin (Multi-Vitamin Daily) Unknown Strength Tablet, Unknown Dose PO DA ANJELICA, (Reported) Entered as Reported by: MUMTAZ NUR on 11/11/20 1104 Ondansetron (Ondansetron Odt) 4 Mg Tab.rapdis, 4 MG PO Q6H PRN for NAUSEA/VOMITING-1ST LINE Prescribed by: Nick Hill on 04/02/22 1555 Potassium Chloride (Potassium Chloride) 10 Meq Capsule.er, 10 MEQ PO DAILY Prescribed by: Nick Hill on 04/02/22 1555 Simethicone (Mi-Acid) 80 Mg Tab.chew, 40 MG PO TID PRN for INDIGESTION 2ND LINE Prescribed by: AVI FULLER on 11/18/20 1030 Review of Systems Review of Systems Constitutional: no symptoms reported Respiratory: No Symptoms Reported Cardiovascular: No Symptoms Reported Gastrointestinal: Abdominal Pain, Constipated, Nausea, Vomiting Genitourinary: No Symptoms Reported Skin: no symptoms reported Past Pzftcjm-Nvmtic-Mglqhi Hx Patient Social History Tobacco type used: Cigarettes Smoking Status: Current Everyday Smoker Substance use?: No Alcohol Use?: No Pt feels they are or have been: No Seasonal Allergies Seasonal Allergies: Yes Past Medical History Surgeries: Yes (ING HERNIA,CERVICAL CONIZATION,C-SEC X3) Bladder Surgery, Tubal Ligation Respiratory: Yes Asthma Currently Using CPAP: No Currently Using BIPAP: No Cardiac: Yes Hypertension Neurological: Yes Headaches /Migraines Female Reproductive Disorders: Menstrual Problems [employer] History: Tubal Ligation Genitourinary: Yes (URINARY FREQUENCY) Gastrointestinal: Yes Irritable Bowel Musculoskeletal: Yes Scoliosis Endocrine: No HEENT: Yes (GLASSES/CONTACTS, DIMINISHED HEARING RIGHT EAR) Hearing Impairment: Hard of Hearing Cancer: No Psychosocial: Yes Anxiety Integumentary: No Blood Disorders: Yes (ANEMIA) Physical Exam Vital Signs Vital Signs - First Documented 04/02/22 12:48 Temp 36.4 Pulse 112 Resp 18 B/P (MAP) 127/84 (98) Pulse Ox 100 O2 Delivery Room Air Capillary Refill : Less Than 3 Seconds Height/Weight/BMI Height: '" Weight: lbs. oz. kg; 14.00 BMI Method: General Appearance: WD/WN, no apparent distress HEENT: PERRL/EOMI, normal ENT inspection, TMs normal, pharynx normal Neck: non-tender, full range of motion, supple, normal inspection Respiratory: chest non-tender, lungs clear, normal breath sounds, no respiratory distress, no accessory muscle use Cardiovascular: normal peripheral pulses, no edema, no gallop, no JVD, no murmur, tachycardia Gastrointestinal: normal bowel sounds, soft, no organomegaly, no pulsatile mass, tenderness (mild TTP in the lower abdomen without guarding or rebound) Extremities: normal range of motion, non-tender, normal inspection, no pedal edema, no calf tenderness, normal capillary refill, pelvis stable Back: normal inspection, no CVA tenderness, no vertebral tenderness Neurologic/Psychiatric: traveling operator II-XII nml as tested, no motor/sensory deficits, alert, normal mood/affect, oriented x 3 Skin: normal color, warm/dry Progress/Results/Core Measures Results/Orders Lab Results Laboratory Tests Test 04/02/22 13:05 04/02/22 13:48 Range/Units White Blood Count 10.4 4.3-11.0 10^3/uL Red Blood Count 4.66 3.80-5.11 10^6/uL Hemoglobin 15.4 11.5-16.0 g/dL Hematocrit 44 35-52 % Mean Corpuscular Volume 94 80-99 fL Mean Corpuscular Hemoglobin 33 25-34 pg Mean Corpuscular Hemoglobin Concent 35 32-36 g/dL Red Cell Distribution Width 11.9 10.0-14.5 % Platelet Count 455 H 130-400 10^3/uL Mean Platelet Volume 9.6 9.0-12.2 fL Immature Granulocyte % (Auto) 0 % Neutrophils (%) (Auto) 75 42-75 % Lymphocytes (%) (Auto) 14 12-44 % Monocytes (%) (Auto) 10 0-12 % Eosinophils (%) (Auto) 1 0-10 % Basophils (%) (Auto) 1 0-10 % Neutrophils # (Auto) 7.8 1.8-7.8 10^3/uL Lymphocytes # (Auto) 1.4 1.0-4.0 10^3/uL Monocytes # (Auto) 1.0 0.0-1.0 10^3/uL Eosinophils # (Auto) 0.1 0.0-0.3 10^3/uL Basophils # (Auto) 0.1 0.0-0.1 10^3/uL Immature Granulocyte # (Auto) 0.0 0.0-0.1 10^3/uL Sodium Level 140 135-145 MMOL/L Potassium Level 3.2 L 3.6-5.0 MMOL/L Chloride Level 92 L 98-107 MMOL/L Carbon Dioxide Level 28 21-32 MMOL/L Anion Gap 20 H 5-14 MMOL/L Blood Urea Nitrogen 34 H 7-18 MG/DL Creatinine 1.47 H 0.60-1.30 MG/DL Estimat Glomerular Filtration Rate 44 BUN/Creatinine Ratio 23 Glucose Level 126 H 70-105 MG/DL Calcium Level 11.3 H 8.5-10.1 MG/DL Corrected Calcium 8.5-10.1 MG/DL Total Bilirubin 0.3 0.1-1.0 MG/DL Aspartate Amino Transf (AST/SGOT) 25 5-34 U/L Alanine Aminotransferase (ALT/SGPT) 27 0-55 U/L Alkaline Phosphatase 86 40-136 U/L Total Protein 8.5 H 6.4-8.2 GM/DL Albumin 4.7 H 3.2-4.5 GM/DL Lipase 113 H 8-78 U/L Urine Color YELLOW Urine Clarity CLEAR Urine pH 6.0 5-9 Urine Specific [place] >=1.030 1.016-1.022 Urine Protein 2+ H NEGATIVE Urine Glucose (UA) NEGATIVE NEGATIVE Urine Ketones 2+ H NEGATIVE Urine Nitrite NEGATIVE NEGATIVE Urine Bilirubin 2+ H NEGATIVE Urine Urobilinogen 0.2 < = 1.0 MG/DL Urine Leukocyte Esterase NEGATIVE NEGATIVE Urine RBC (Auto) TRACE-I H NEGATIVE Urine RBC RARE /HPF Urine WBC 25-50 H /HPF Urine Squamous Epithelial Cells 10-25 H /HPF Urine Crystals NONE /LPF Urine Bacteria TRACE /HPF Urine Casts PRESENT /LPF Urine White Blood Cell Casts 2-5 H /LPF Urine Mucus NEGATIVE /LPF Urine Culture Indicated YES Urine Opiates Screen NEGATIVE NEGATIVE Urine Oxycodone Screen NEGATIVE NEGATIVE Urine Methadone Screen NEGATIVE NEGATIVE Urine Propoxyphene Screen NEGATIVE NEGATIVE Urine Barbiturates Screen NEGATIVE NEGATIVE Ur Tricyclic Antidepressants Screen NEGATIVE NEGATIVE Urine Phencyclidine Screen NEGATIVE NEGATIVE Urine Amphetamines Screen NEGATIVE NEGATIVE Urine Methamphetamines Screen POSITIVE H NEGATIVE Urine Benzodiazepines Screen NEGATIVE NEGATIVE Urine Cocaine Screen NEGATIVE NEGATIVE Urine Cannabinoids Screen NEGATIVE NEGATIVE My Orders Orders - NICK HILL APRN Comprehensive Metabolic Panel (04/02/22 13:01) Lipase (04/02/22 13:01) Acute Abd Series (04/02/22 13:01) Cbc With Automated Diff (04/02/22 13:01) Metoclopramide Injection (Reglan Injecti (04/02/22 13:15) Urinalysis (04/02/22 13:01) Drug Screen Stat (Urine) (04/02/22 13:01) Iv/Invasive Line Insertion .IV INSERT (04/02/22 13:01) Ns Iv 1000 Ml (Sodium Chloride 0.9%) (04/02/22 13:15) Ketorolac Injection (Toradol Injection) (04/02/22 14:00) Ketorolac Injection (Toradol Injection) (04/02/22 13:56) Urine Culture (04/02/22 13:48) Medications Given in ED Current Medications Medications Dose Ordered Sig/Rita Route Start Time Stop Time Status Last Admin Dose Admin Ketorolac Tromethamine 15 mg ONCE ONCE IVP 04/02/22 14:00 04/02/22 14:01 DC 04/02/22 14:02 15 MG Metoclopramide HCl 10 mg ONCE ONCE IVP 04/02/22 13:15 04/02/22 13:16 DC 04/02/22 13:10 10 MG Vital Signs/I&O 04/02/22 04/02/22 12:48 16:06 Temp 36.4 36.4 Pulse 112 112 Resp 18 18 B/P (MAP) 127/84 (98) 127/84 Pulse Ox 100 100 O2 Delivery Room Air Room Air Blood Pressure Mean: 98 Progress Progress Note : Progress Note Pt is nontoxic on exam. She does appear mildly dehydrated. Abdominal exam is reassuring. Pt has mild lower abdominal TTP without guarding or rebound. Abdomen is scaphoid in appearance. Pt noted to be slightly tachycardic. Laboratory evaluation notable for mild hypokalemia, mild hypochloremia, increased anion gap, elevated BUN, and elevated creatinine. The elevated BUN is likely related to her dehydration as is the mildly elevated creatinine. Anion gap elevation is identical to the labs from [facility] that were faxed over with the rest of the medical chart. CT of the abd/pelvis with contras t obtained on 03/29 notable for some fluid-filled loops of bowel of uncertain etiology. Abdominal films from 03/30 also show fluid filled small bowel with some dilation. Similar findings noted on abd films from 03/31. Patient had a few episodes of emesis after trying to drink some water. Admission was offered for continue bowel rest and IV hydration. Initially patient agreed to admission but shortly thereafter decided she does not want to be admitted. She feels like the constipation is the source of her symptoms. Discussed use of OTC Fleet's enema to assist with bowel clean out. Discussed importance of frequent small aliquots of oral liquids to maximize hydration. I recommended she return to the ED for any worsening of symptoms. Closely follow-up with PCP. Alphonse edwards verbalized understanding. Of note, patient did have some pyuria on UA. This is likely a dirty specimen as there is also a large number of squamous epithelial cells. Patient denies any urinary symptoms. Will wait on urine culture results to guide need for antimicrobial therapy. Departure Impression Primary Impression: Constipation Qualified Codes: K59.00 - Constipation, unspecified Additional Impression: Vomiting Qualified Codes: R11.2 - Nausea with vomiting, unspecified Disposition: 01 HOME, SELF-CARE Condition: Stable Departure-Patient Inst. Decision time for Depature: 15:50 Referrals: [facility]/K (PCP/Family) Primary Care Physician Patient Instructions: Constipation, Adult (DC), Dehydration, Adult (DC), Nausea and Vomiting, Adult (DC) Scripts Ondansetron (Ondansetron Odt) 4 Mg Tab.rapdis 4 MG PO Q6H PRN for NAUSEA/VOMITING-1ST LINE for 7 Days, #20 TAB Prov: NICK HILL CHARACTER ACTRESS 04/02/22 Potassium Chloride (Potassium Chloride) 10 Meq Capsule.er 10 MEQ PO DAILY for 7 Days, #7 CAP Prov: NICK HILL APRN 04/02/22 NICK HILL APRN Apr 02, 2022 13:51
[2022-04-02] MEDS ORDERED: KETOROLAC 30 MG/ML VIAL ONE (13:56)
[2022-04-02] MEDS ORDERED: KETOROLAC 15 MG/ML VIAL IVP ONE (14:00)
--- NOTE | 2022-04-02 14:07 | Diagnostic Imaging Report ---
HISTORY: Vomiting and lower abdominal pain. TECHNIQUE: Frontal view of the chest. Frontal upright and supine views of the abdomen. COMPARISON: None. FINDINGS: Lung volumes are large. No consolidation is seen. There is no pleural effusion or pneumothorax. The cardiac silhouette is normal in size. There is one prominent loop of small bowel. No other small bowel distention is seen. There is no large collection of free air. There is marked dense stool in the colon. IMPRESSION: 1. One prominent loop of small bowel, may represent a focal ileus. 2. There is marked dense stool in the colon, please correlate with history of constipation. 3. Large lung volumes with no acute pulmonary abnormality seen. Dictated by: Dictated on workstation # [id number]
[2022-04-02 14:28] LABS: AMPHETAMINE SCREEN, URINE NEGATIVE (NEGATIVE); BARBITURATE SCREEN URINE NEGATIVE (NEGATIVE); BENZODIAZEPINES SCREEN URINE NEGATIVE (NEGATIVE); CANNABINOID SCREEN, URINE NEGATIVE (NEGATIVE); COCAINE SCREEN URINE NEGATIVE (NEGATIVE); METHADONE STAT NEGATIVE (NEGATIVE); OPIATE SCREEN URINE NEGATIVE (NEGATIVE); OXYCODONE STAT NEGATIVE (NEGATIVE); PROPOXYPHENE STAT NEGATIVE (NEGATIVE); TRICYCLIC ANTIDEPRESSANTS SCRE NEGATIVE (NEGATIVE)
[2022-04-02 14:56] LABS: CLARITY,URINE CLEAR; COLOR,URINE YELLOW; GLUCOSE, URINE (UA) NEGATIVE (NEGATIVE); KETONES,URINE 2+ (NEGATIVE); LEUKOCYTE ESTERASE ,URINE NEGATIVE (NEGATIVE); NITRITE,URINE NEGATIVE (NEGATIVE); PROTEIN,URINE 2+ (NEGATIVE)
[2022-04-02 15:19] LABS: BACTERIA,URINE TRACE /HPF; BILIRUBIN,URINE 2+ (NEGATIVE); RBC,URINE RARE /HPF; WBC,URINE 25-50 /HPF
[2022-04-02] MEDS ORDERED: ONDA4TAB11 PO (15:55)
[2022-04-02] MEDS ORDERED: POTA10CA43 PO (15:55)
[2022-04-02 16:06] VITALS: BP 127/84
== END 2022-04-02 16:09 | disposition home or self-care (01) ==
LOC: EDUNIT# 12:37 → ER 12:41
DX: K59.00 Constipation, unspecified (principal); R11.10 Vomiting, unspecified; E87.6 Hypokalemia; E87.8 Other disorders of electrolyte and fluid balance, not elsewhere classified; R94.4 Abnormal results of kidney function studies; R79.89 Other specified abnormal findings of blood chemistry; R00.0 Tachycardia, unspecified; F17.210 Nicotine dependence, cigarettes, uncomplicated; Z90.49 Acquired absence of other specified parts of digestive tract
CPT/HCPCS: 36415; 74022; 80053; 80306; 81000; 83690; 85025; 87088

== ENCOUNTER 2022-04-04 15:00 | Observation (INO) | payer OTHER ==
[~2022-04-04] VITALS: Ht 162.2 cm; Wt 42.1 kg
[~2022-04-04 15:00] MED LIST changes: +ONDA4TAB11 PO; +POTA10CA43 PO
[2022-04-04] MEDS ORDERED: LACTATED RINGERS 1,000 ML IV ONE (16:15)
[2022-04-04 16:30] LABS: ALBUMIN 5.4 GM/DL (3.2-4.5)
[2022-04-04 16:31] LABS: CHLORIDE 87 MMOL/L (98-107); POTASSIUM 2.9 MMOL/L (3.6-5.0); SODIUM 139 MMOL/L (135-145)
[2022-04-04 16:32] LABS: BASOPHILS # (AUTO) 0.1 10^3/uL (0.0-0.1); BASOPHILS % (AUTO) 1 % (0-10); CALCIUM 11.9 MG/DL (8.5-10.1); EOSINOPHILS # (AUTO) 0.1 10^3/uL (0.0-0.3); EOSINOPHILS % (AUTO) 1 % (0-10); HEMATOCRIT 48 % (35-52); LYMPHOCYTES # (AUTO) 1.1 10^3/uL (1.0-4.0); LYMPHOCYTES % (AUTO) 11 % (12-44); MEAN CORPUSCULAR HEMOGLOBIN 33 pg (25-34); MEAN CORPUSCULAR HGB CONC 35 g/dL (32-36); MEAN CORPUSCULAR VOLUME 94 fL (80-99); MONOCYTES # (AUTO) 0.7 10^3/uL (0.0-1.0); MONOCYTES % (AUTO) 8 % (0-12); NEUTROPHILS # (AUTO) 7.8 10^3/uL (1.8-7.8); NEUTROPHILS % (AUTO) 80 % (42-75); PLATELET COUNT 501 10^3/uL (130-400); WHITE BLOOD COUNT 9.8 10^3/uL (4.3-11.0)
[2022-04-04 16:33] LABS: GLUCOSE 126 MG/DL (70-105); TOTAL PROTEIN 9.7 GM/DL (6.4-8.2)
[2022-04-04 16:34] LABS: CARBON DIOXIDE 30 MMOL/L (21-32)
[2022-04-04 16:35] LABS: BILIRUBIN,TOTAL 0.5 MG/DL (0.1-1.0)
--- NOTE | 2022-04-04 16:35 | Diagnostic Imaging Report ---
EXAMINATION: Abdominal radiographs, upright and supine views. DATE: April 04, 2022. CLINICAL INDICATION: 46-year-old male, abdominal pain. COMPARISON: Abdominal radiograph April 02, 2022. COMMENTS: There is contrast material in the colon. There are no abnormally distended contrast or gas filled segments of bowel. There is no identified free intraperitoneal air. There is an air-fluid level present. There is no identified pneumatosis, portal venous gas or free intraperitoneal air. There are sutures distal left of midline at the level of the pelvis. There is no identified abnormal radiodensity overlying the kidneys or expected locations of the ureters. IMPRESSION: 1. No abnormally dilated gas-filled segments of bowel. 2. There is an air-fluid level present which could relate to nonspecific enteritis or colitis. Dictated by: Dictated on workstation # [id number]
[2022-04-04 16:36] LABS: ALKALINE PHOSPHATASE 92 U/L (40-136)
[2022-04-04 16:37] LABS: CREATININE SERUM 1.91 MG/DL (0.60-1.30); GFR ESTIMATED 32
[2022-04-04 16:38] LABS: BUN/CREATININE RATIO 27
[2022-04-04 16:40] LABS: ALANINE AMINOTRANSFERASE 92 U/L (0-55); MAGNESIUM 2.4 MG/DL (1.6-2.4)
[2022-04-04] MEDS ORDERED: NS IV 1000 ML 1,000 ML IV SCH (17:00)
[2022-04-04] MEDS ORDERED: POTASSIUM CL 10MEQ/50ML IVPB 50 ML IV ONE (17:00)
[2022-04-04] MEDS ORDERED: PANTOPRAZOLE 40 MG (PROTONIX) VIAL IV ONE (17:45)
--- NOTE | 2022-04-04 17:50 | ED GI ---
General Chief Complaint: Abdominal/GI Problems Stated Complaint: VOMITING/CONSTIPATION Nursing Triage Note: pt ambulatory to room with . pt states she has not had a meal for 1 week or bowel movement for 6 days. pt states she was admitted to [facility] from wednesday through wednesday for bowel rest. pt was then seen at our ER on and states she was offered admission but declines. pt states she cannot eat or drink anything without puking and states it is a dark green bile. pt states she does not have abdominal pain, but states she thinks she is going to if she cannot figure out how to eat or drink anything. pt was given script for zofran but she states it has not helped. pt reports 13 lb weight loss in last week Source of Information: Patient Exam Limitations: No Limitations History of Present Illness Date Seen by Provider: Apr 04, 2022 Time Seen by Provider: 16:00 Initial Comments This 46-year-old woman presents to the emergency room with complaints of persistent nausea, vomiting, and intermittent abdominal discomfort for more than a week. She was admitted to [facility] from March [address] scan was obtained on the demonstrating some fluid-filled bowel suggestive of gastroenteritis. A low-grade partial obstruction was not ruled out. There was contrast in the colon at that time. Gallbladder was mildly prominent in size but did not appear pathologic. Patient left AGAINST MEDICAL ADVICE. She then presented to this emergency room on April 02 and was treated. She was offered admission but declined. She had some solid food yesterday including small bites of chicken, crackers, grapes, and cucumbers but she eventually vomited that food. She reports 13 pound weight loss in the last week. She is very thin on exam. She tried taking MiraLAX at home for constipa tion but that caused vomiting. She also tried suppositories and Gas-X. Her last bowel movement was 1 week ago. Patient also gives history of a bowel injury during hysterectomy November of last year resulting in a segment of small bowel resection by Dr. Fox. Patient is afebrile at this time. She is not in any distress. We discussed medications previously used. She does not like to use opioid pain medications due to adverse effects. She states that Reglan was not effective for increasing her bowel motility and Phenergan causes extreme sedation for her. It was noted on her ER visit 2 days ago that a drug screen returned positive for methamphetamine. Patient is adamant that she does not use any illicit substances and that is likely a false positive due to her Bronkaid (ephedrine/guaifenesin) use. Allergies and Home Medications Allergies Uncoded Allergies: OPIOIDS (Adverse Reaction, Mild, Vomiting, 11/11/20) REPORTS SENSITIVITY TO OPIOIDS-N/V Patient Home Medication List Home Medication List Reviewed: Yes Acetaminophen (Tylenol Extra Strength) 500 Mg Tablet, 1,000 MG PO Q6H PRN for PAIN-MILD (1-4), (Reported) Entered as Reported by: FANTA GARRETT on 04/06/221308 Last Action: Reviewed Albuterol Sulfate (Proair Hfa) 1 Puff Puff, 2 PUFF IH Q4H PRN for SHORTNESS OF BREATH, (Reported) Entered as Reported by: MUMTAZ NUR on 11/11/201103 Last Action: Reviewed Aspirin/Acetaminophen/Caffeine (Excedrin Migraine Caplet) 250 Mg-250 Mg-65 Mg Tablet, 2 EACH PO Q6-8HR PRN for Headache, (Reported) Entered as Reported by: FANTA GARRETT on 04/06/221308 Last Action: Reviewed Ephedrine Sulfate (Bronkaid Max) 25 Mg Tablet, 25 MG PO Q6H PRN for WHEEZING, (Reported) Entered as Reported by: MUMTAZ NUR on 11/11/201103 Last Action: Reviewed Ibuprofen (Ibuprofen) 200 Mg Tablet, 400-600 MG PO Q8H PRN for PAIN-MILD (1-4), (Reported) Entered as Reported by: FANTA GARRETT on 04/06/221308 Last Action: Reviewed L.acidoph & Paracasei,B.lactis (Probiotic) 1 Each Capsule, 1 EACH PO DAILY, (Reported) Entered as Reported by: MUMTAZ NUR on 11/11/201103 Last Action: Reviewed Lisinopril (Lisinopril) 5 Mg Tablet, 5 MG PO HS, (Reported) Entered as Reported by: MUMTAZ NUR on 11/11/201103 Last Action: Reviewed Multivitamin (Multi-Vitamin Daily) 1 Each Tablet, 1 EA PO DAILY, (Reported) Entered as Reported by: MUMTAZ NUR on 11/11/201103 Last Action: Reviewed Ondansetron (Ondansetron Odt) 4 Mg Tab.rapdis, 4 MG PO Q6H PRN for NAUSEA/VOMITING-1ST LINE, (Reported) Entered as Reported by: FANTA GARRETT on 04/06/22 130 Last Action: Reviewed Potassium Chloride (Potassium Chloride) 10 Meq Tab.er.prt, 10 MEQ PO DAILY, (Reported) Entered as Reported by: FANTA GARRETT on 04/06/22 1309 Last Action: Reviewed Discontinued Medications Docusate Sodium (Dok) 100 Mg Capsule, 100 MG PO BID PRN for CONSTIPATION-1ST LINE Discontinued Reason: No Longer Taking Prescribed by: AVI FULLER on 11/18/20 103 Last Action: Discontinued Hydrocodone Bit/Acetaminophen (HYDROcodone/APAP 7.5/325 TAB) 1 Ea Tablet, 2 EA PO Q6H PRN for Pain-See Instructions Discontinued Reason: No Longer Taking Prescribed by: AVI FULLER on 11/18/20 103 Last Action: Discontinued Ibuprofen (Ibu) 600 Mg Tablet, 600 MG PO Q6H PRN for CRAMPS Discontinued Reason: No Longer Taking Prescribed by: AVI FULLER on 11/18/201029 Last Action: Discontinued Ondansetron (Ondansetron Odt) 4 Mg Tab.rapdis, 4 MG PO Q6H PRN for NAUSEA/VOMITING-1ST LINE Discontinued Reason: Duplicate Order Prescribed by: Nick Hill on 04/02/221554 Last Action: Discontinued Potassium Chloride (Potassium Chloride) 10 Meq Capsule.er, 10 MEQ PO DAILY Discontinued Reason: Duplicate Order Prescribed by: Nick Hill on 04/02/221554 Last Action: Discontinued Simethicone (Mi-Acid) 80 Mg Tab.chew, 40 MG PO TID PRN for INDIGESTION 2ND LINE Discontinued Reason: No Longer Taking Prescribed by: AVI FULLER on 11/18/20 103 Last Action: Discontinued Simethicone (Simethicone) 180 Mg Capsule, 180 MG PO, (Reported) Discontinued Reason: No Longer Taking Entered as Reported by: KATHI CAIN on 04/04/222149 Last Action: Discontinued Review of Systems Review of Systems Constitutional: see HPI, weight loss EENTM: No Symptoms Reported Respiratory: No Symptoms Reported Cardiovascular: No Symptoms Reported Gastrointestinal: See HPI Genitourinary: No Symptoms Reported Musculoskeletal: no symptoms reported Skin: no symptoms reported Psychiatric/Neurological: No Symptoms Reported Endocrine: No Symptoms Reported Past Vlethyx-Dqovil-Hhtvov Hx Patient Social History Tobacco Use?: Yes Tobacco type used: Cigarettes Smoking Status: Current Everyday Smoker Use of E-Cig and/or Vaping dev: No Substance use?: No Alcohol Use?: No Seasonal Allergies Seasonal Allergies: Yes Past Medical History Surgeries: Yes (ING HERNIA,CERVICAL CONIZATION,C-SEC X3) Bladder Surgery, Tubal Ligation Respiratory: Yes Asthma Currently Using CPAP: No Currently Using BIPAP: No Cardiac: Yes Hypertension Neurological: Yes Headaches /Migraines Female Reproductive Disorders: Menstrual Problems [employer]GET[employer] History: Tubal Ligation Genitourinary: Yes (URINARY FREQUENCY) Gastrointestinal: Yes Irritable Bowel Musculoskeletal: Yes Scoliosis Endocrine: No HEENT: Yes (GLASSES/CONTACTS, DIMINISHED HEARING RIGHT EAR) Hearing Impairment: Hard of Hearing Cancer: No Psychosocial: Yes Anxiety Integumentary: No Blood Disorders: Yes (ANEMIA) Physical Exam Vital Signs Vital Signs - First Documented 04/04/22 15:22 Temp 37.0 Pulse 99 Resp 16 B/P (MAP) 100/71 (81) Pulse Ox 98 Capillary Refill : Height/Weight/BMI Height: '" Weight: lbs. oz. kg; 14.00 BMI Method: General Appearance: WD/WN, no apparent distress, thin HEENT: normal ENT inspection, pharynx normal Neck: full range of motion, normal inspection Respiratory: lungs clear, normal breath sounds, no respiratory distress Cardiovascular: regular rate, rhythm, no edema, no murmur Gastrointestinal: normal bowel sounds, soft, tenderness (Mild in the lower abdomen) Extremities: normal inspection, no pedal edema Neurologic/Psychiatric: no motor/sensory deficits, alert, normal mood/affect, oriented x 3 Skin: normal color, warm/dry Progress/Results/Core Measures Results/Orders Lab Results Laboratory Tests Test 04/04/22 16:17 04/04/22 17:47 Range/Units White Blood Count 9.8 4.3-11.0 10^3/uL Red Blood Count 5.15 H 3.80-5.11 10^6/uL Hemoglobin 17.0 H 11.5-16.0 g/dL Hematocrit 48 35-52 % Mean Corpuscular Volume 94 80-99 fL Mean Corpuscular Hemoglobin 33 25-34 pg Mean Corpuscular Hemoglobin Concent 35 32-36 g/dL Red Cell Distribution Width 11.7 10.0-14.5 % Platelet Count 501 H 130-400 10^3/uL Mean Platelet Volume 10.0 9.0-12.2 fL Immature Granulocyte % (Auto) 0 % Neutrophils (%) (Auto) 80 H 42-75 % Lymphocytes (%) (Auto) 11 L 12-44 % Monocytes (%) (Auto) 8 0-12 % Eosinophils (%) (Auto) 1 0-10 % Basophils (%) (Auto) 1 0-10 % Neutrophils # (Auto) 7.8 1.8-7.8 10^3/uL Lymphocytes # (Auto) 1.1 1.0-4.0 10^3/uL Monocytes # (Auto) 0.7 0.0-1.0 10^3/uL Eosinophils # (Auto) 0.1 0.0-0.3 10^3/uL Basophils # (Auto) 0.1 0.0-0.1 10^3/uL Immature Granulocyte # (Auto) 0.0 0.0-0.1 10^3/uL Sodium Level 139 135-145 MMOL/L Potassium Level 2.9 L 3.6-5.0 MMOL/L Chloride Level 87 L 98-107 MMOL/L Carbon Dioxide Level 30 21-32 MMOL/L Anion Gap 22 H 5-14 MMOL/L Blood Urea Nitrogen 52 H 7-18 MG/DL Creatinine 1.91 H 0.60-1.30 MG/DL Estimat Glomerular Filtration Rate 32 BUN/Creatinine Ratio 27 Glucose Level 126 H 70-105 MG/DL Calcium Level 11.9 H 8.5-10.1 MG/DL Corrected Calcium 8.5-10.1 MG/DL Magnesium Level 2.4 1.6-2.4 MG/DL Total Bilirubin 0.5 0.1-1.0 MG/DL Aspartate Amino Transf (AST/SGOT) 79 H 5-34 U/L Alanine Aminotransferase (ALT/SGPT) 92 H 0-55 U/L Alkaline Phosphatase 92 40-136 U/L C-Reactive Protein High Sensitivity 0.50 0.00-0.50 MG/DL Total Protein 9.7 H 6.4-8.2 GM/DL Albumin 5.4 H 3.2-4.5 GM/DL Urine Color YELLOW Urine Clarity SL CLOUDY Urine pH 5.0 5-9 Urine Specific [place] 1.025 H 1.016-1.022 Urine Protein 1+ H NEGATIVE Urine Glucose (UA) NEGATIVE NEGATIVE Urine Ketones 1+ H NEGATIVE Urine Nitrite NEGATIVE NEGATIVE Urine Bilirubin 1+ H NEGATIVE Urine Urobilinogen 0.2 < = 1.0 MG/DL Urine Leukocyte Esterase NEGATIVE NEGATIVE Urine RBC (Auto) NEGATIVE NEGATIVE Urine RBC NONE /HPF Urine WBC 2-5 /HPF Urine Squamous Epithelial Cells 0-2 /HPF Urine Crystals NONE /LPF Urine Bacteria NEGATIVE /HPF Urine Casts NONE /LPF Urine Mucus NEGATIVE /LPF Urine Culture Indicated NO Urine Opiates Screen NEGATIVE NEGATIVE Urine Oxycodone Screen NEGATIVE NEGATIVE Urine Methadone Screen NEGATIVE NEGATIVE Urine Propoxyphene Screen NEGATIVE NEGATIVE Urine Barbiturates Screen NEGATIVE NEGATIVE Ur Tricyclic Antidepressants Screen NEGATIVE NEGATIVE Urine Phencyclidine Screen NEGATIVE NEGATIVE Urine Amphetamines Screen NEGATIVE NEGATIVE Urine Methamphetamines Screen POSITIVE H NEGATIVE Urine Benzodiazepines Screen NEGATIVE NEGATIVE Urine Cocaine Screen NEGATIVE NEGATIVE Urine Cannabinoids Screen NEGATIVE NEGATIVE My Orders Orders - CELINE MALLOY MD Cbc With Automated Diff (04/04/22 16:14) Comprehensive Metabolic Panel (04/04/22 16:14) Hs C Reactive Protein (04/04/22 16:14) Ua Culture If Indicated (04/04/22 16:14) Lactated Ringers (Lr 1000 Ml Iv Solution (04/04/22 16:15) Abdomen, Flat & Upright/Decub (04/04/22 16:15) Magnesium (04/04/22 16:16) Potassium Cl 10meq/50ml Ivpb (Kcl 10 Meq (04/04/22 17:00) Ed Iv/Invasive Line Start (04/04/22 16:54) Ns Iv 1000 Ml (Sodium Chloride 0.9%) (04/04/22 17:00) Pantoprazole Injection (Protonix Injecti (04/04/22 17:45) Ed Admission (Communication) (04/04/22 18:23) Medications Given in ED Vital Signs/I&O 04/04/22 15:22 Temp 37.0 Pulse 99 Resp 16 B/P (MAP) 100/71 (81) Pulse Ox 98 Blood Pressure Mean: 81 Progress Progress Note : Time: 17:57 Progress Note Patient is being treated with IV fluids. Potassium is being replaced by IV route. Abdominal x-rays demonstrated no evidence of obstruction but there is solid-appearing stool throughout the colon still with retained contrast similar to CT from a week ago. Patient believes she has significant "acid problems". Protonix is being administered. She also wonders if she has a gallbladder problem. Gallbladder was prominent on the prior CT at [place]. Creatinine is significantly elevated from prior. I recommended admission for continued replacement of potassium, hydration, and further evaluation. Patient is agreeable. Diagnostic Imaging Diagonstic Imaging: Xray Plain Films/CT/US/NM/MRI: abdomen, pelvis Comments X-rays viewed by me and report reviewed. See report below: NAME: RANDAL DOMINIQUE [facility] REC#: [id number] PT STATUS: REG ER : 1975 PHYSICIAN: CELINE MALLOY MD ADMIT DATE: 04/04/22/ER Signed Date of Exam:04/04/22 ABDOMEN, FLAT & UPRIGHT/DECUB EXAMINATION: Abdominal radiographs, upright and supine views. DATE: April 04, 2022. CLINICAL INDICATION: 46-year-old male, abdominal pain. COMPARISON: Abdominal radiograph April 02, 2022. COMMENTS: There is contrast material in the colon. There are no abnormally distended contrast or gas filled segments of bowel. There is no identified free intraperitoneal air. There is an air-fluid level present. There is no identified pneumatosis, portal venous gas or free intraperitoneal air. There are sutures distal left of midline at the level of the pelvis. There is no identified abnormal radiodensity overlying the kidneys or expected locations of the ureters. IMPRESSION: 1. No abnormally dilated gas-filled segments of bowel. 2. There is an air-fluid level present which could relate to nonspecific enteritis or colitis. Dictated by: Dictated on workstation # [id number] Dict: 04/04/22 1630 Trans: 04/04/22 1642 [facility] [phone] Interpreted by: PASCUAL TRENT MD Electronically signed by: PASCUAL TRENT MD 04/04/22 1642 Departure Communication (Admissions) Time/Spoke to Admitting Phy: 18:15 Dr. Amos Time/Spoke to Consulting Phy: 18:20 Dr. Scales Impression Primary Impression: Acute kidney injury Additional Impressions: Hypokalemia Nausea and vomiting Qualified Codes: R11.2 - Nausea with vomiting, unspecified Abnormal weight loss Disposition: ADMITTED INPATIENT Condition: Improved Admissions Decision to Admit Reason: Admit from ER (General) Decision to Admit/Date: Apr 04, 2022 Time/Decision to Admit Time: 18:15 Departure-Patient Inst. Referrals: [facility] (PCP/Family) Primary Care Physician CELINE MALLOY MD Apr 04, 2022 17:49
[2022-04-04 17:54] LABS: CLARITY,URINE SL CLOUDY; COLOR,URINE YELLOW; GLUCOSE, URINE (UA) NEGATIVE (NEGATIVE); KETONES,URINE 1+ (NEGATIVE); LEUKOCYTE ESTERASE ,URINE NEGATIVE (NEGATIVE); NITRITE,URINE NEGATIVE (NEGATIVE); PROTEIN,URINE 1+ (NEGATIVE)
[2022-04-04 18:03] LABS: BILIRUBIN,URINE 1+ (NEGATIVE)
[2022-04-04 18:18] LABS: BACTERIA,URINE NEGATIVE /HPF; SQUAMOUS EPITHELIAL CELL,UR 0-2 /HPF
[2022-04-04] MEDS ORDERED: MILK OF MAGNESIA 400 MG/5 ML 30 ML UDC PO PRN (20:15)
[2022-04-04] MEDS ORDERED: CALCIUM CARBONATE 500 MG (TUMS) TAB.CHEW PO PRN (20:15)
[2022-04-04] MEDS ORDERED: NALOXONE 0.4 MG/ML 1 ML (NARCAN) VIAL IV PRN (20:15)
[2022-04-04] MEDS ORDERED: polyethylene glycoL POWDER 17 GM (MIRALAX) PACK PO PRN (20:15)
[2022-04-04] MEDS ORDERED: BISACODYL 10 MG SUPP (DULCOLAX) PR PRN (20:15)
[2022-04-04] MEDS ORDERED: LACTULOSE SYRUP 10GM/15ML (ENULOSE) 30ML UDC PO PRN (20:15)
[2022-04-04] MEDS ORDERED: NS IV 1000 ML 1,000 ML ONE (20:15)
[2022-04-04] MEDS ORDERED: HYDROmorphone 2 MG/ML VIAL (DILAUDID) IV PRN (20:15)
[2022-04-04] MEDS ORDERED: MELATONIN 3 MG TABLET PO PRN (20:15)
[2022-04-04] MEDS ORDERED: diphenhydrAMINE 25 MG TAB (BENADRYL) PO PRN (20:15)
[2022-04-04] MEDS ORDERED: diphenhydrAMINE 50 MG/ML INJ (BENADRYL) IVP PRN (20:15)
[2022-04-04 20:25] VITALS: BP 140/75
[2022-04-04] MEDS: NS IV 1000 ML 1,000 ML IV SCH (20:32)
[2022-04-04] MEDS ORDERED: RT-ALBUTEROL/IPRATROPIUM 3 ML (DUONEB) VIAL INH PRN (21:30)
[2022-04-04] MEDS: ENOXAPARIN INJECTION 30 MG/0.3 ML SYR SC SCH (21:41)
[2022-04-04] MEDS: DOCUSATE SODIUM 100 MG (COLACE) CAP PO SCH (21:45)
[2022-04-04] MEDS: ACETAMINOPHEN 325 MG TABLET PO PRN (21:46)
[2022-04-04] MEDS: SENNOSIDES 8.6 MG (SENOKOT) TAB PO SCH (21:46)
[2022-04-04] MEDS ORDERED: SIME180C65 PO (21:50)
[2022-04-04] MEDS: ONDANSETRON 4 MG/2 ML (SDV) Z0FRAN IV PRN (22:00)
[2022-04-05 00:17] VITALS: BP 148/84
[2022-04-05] MEDS: SIMETHICONE 80 MG (MYLICON) CHEW PO PRN (00:42)
[2022-04-05 04:34] VITALS: BP 151/80
[2022-04-05] MEDS: ONDANSETRON 4 MG/2 ML (SDV) Z0FRAN IV PRN ×2 (04:38→20:33)
[2022-04-05] MEDS: NS IV 1000 ML 1,000 ML IV SCH ×3 (04:38→20:38)
[2022-04-05 05:24] LABS: BASOPHILS # (AUTO) 0.1 10^3/uL (0.0-0.1); BASOPHILS % (AUTO) 1 % (0-10); EOSINOPHILS # (AUTO) 0.1 10^3/uL (0.0-0.3); EOSINOPHILS % (AUTO) 2 % (0-10); HEMATOCRIT 38 % (35-52); HEMOGLOBIN 13.1 g/dL (11.5-16.0); LYMPHOCYTES # (AUTO) 1.4 10^3/uL (1.0-4.0); LYMPHOCYTES % (AUTO) 15 % (12-44); MEAN CORPUSCULAR HEMOGLOBIN 33 pg (25-34); MEAN CORPUSCULAR HGB CONC 35 g/dL (32-36); MEAN CORPUSCULAR VOLUME 96 fL (80-99); MONOCYTES # (AUTO) 0.7 10^3/uL (0.0-1.0); MONOCYTES % (AUTO) 8 % (0-12); NEUTROPHILS # (AUTO) 7.1 10^3/uL (1.8-7.8); NEUTROPHILS % (AUTO) 75 % (42-75); PLATELET COUNT 343 10^3/uL (130-400); WHITE BLOOD COUNT 9.5 10^3/uL (4.3-11.0)
[2022-04-05 05:43] LABS: BILIRUBIN,TOTAL 0.4 MG/DL (0.1-1.0); CALCIUM 9.1 MG/DL (8.5-10.1); CREATININE SERUM 0.91 MG/DL (0.60-1.30); TOTAL PROTEIN 6.9 GM/DL (6.4-8.2)
--- NOTE | 2022-04-05 06:57 | History & Physical-Hospitalist ---
History of Present Illness HPI/Chief Complaint CC: Abdominal pain with constipation HPI: This is a 46yoWF clinic patient of [facility] who presents to the ER with abdominal pain and N/V for 10 days and severe hypokalemia requiring NPO status and IV potassium supplement. Dr Scales consulted. Reviewed chart notes on recent [facility] [place] which she left AMA. Patient appears very thin but well and denies meth use although her UDS was + for meth and it appears she uses that substance and appears to be very irritable in withdrawal. USG obtained revealing gallstones so small bowel follow thru will be performed tomorrow then likely if no SBO seen we will plan for choly. Source: patient, family, RN/MD, old records Exam Limitations: no limitations Date Seen 04/05/22 Time Seen by a Provider: 11:00 Attending Physician [place] PCP Admitting Physician: Carrol Amos DO Attending Physician: Carrol Amos DO Referring Physician Date of Admission Apr 04, 2022 at 18:24 Home Medications & Allergies Home Medications Reviewed patient Home Medication Reconciliation performed by pharmacy medication reconciliations clean room technician and/or nursing. Patients Allergies have been reviewed. Allergies Allergies Uncoded Allergies OPIOIDS ( Adverse Reaction, Mild, Vomiting, 11/11/20) REPORTS SENSITIVITY TO OPIOIDS-N/V Past Wepeqbw-Qsgvvt-Vphwkn Hx Patient Social History Marrital Status: Employed/Student: unemployed Tobacco Use?: Yes Tobacco type used: Cigarettes Smoking Status: Current Everyday Smoker Smokeless Tobacco Frequency: Never a User Use of E-Cig and/or Vaping dev: No Substance use?: No Alcohol Use?: No Pt feels they are or have been: No Immunizations Up To Date Date of Influenza Vaccine: Jul 12, 2019 Seasonal Allergies Seasonal Allergies: Yes Current Status Advance Directives: Unable to obtain Communicates: Verbally Primary Language: Israeli Preferred Spoken Language: Israeli Is interpretation needed?: No Past Medical History Surgeries: Bladder Surgery, Tubal Ligation Asthma Currently Using CPAP: No Currently Using BIPAP: No Hypertension Headaches /Migraines [employer] History: Tubal Ligation Irritable Bowel Scoliosis Hearing Impairment: Hard of Hearing Anxiety Blood Disorders: Yes (ANEMIA) Review of Systems Constitutional: see HPI Gastrointestinal: abdominal pain, loss of appetite, nausea, vomiting Physical Exam Physical Exam Vital Signs Vital Signs - First Documented 04/04/22 04/04/22 04/04/22 15:22 20:17 21:18 Temp 37.0 Pulse 99 Resp 16 B/P (MAP) 100/71 (81) Pulse Ox 98 O2 Delivery Room Air FiO2 21 Capillary Refill : Height, Weight, BMI Height: '" Weight: lbs. oz. kg; 16.91 BMI Method: General Appearance: No Apparent Distress, Chronically ill, Thin Eyes: Right Eye Normal Inspection, Right Eye PERRL HEENT: PERRL/EOMI, Normal ENT Inspection, Pharynx Normal, Moist Mucous Membranes Neck: Full Range of Motion, Normal Inspection, Non Tender Respiratory: Chest Non Tender, Lungs Clear, Normal Breath Sounds, No Accessory Muscle Use, No Respiratory Distress Cardiovascular: Regular Rate, Rhythm, No Edema, No Gallop, No JVD, No Murmur, Normal Peripheral Pulses Gastrointestinal: Normal Bowel Sounds, No Organomegaly, No Pulsatile Mass, Non Tender, Soft Back: Normal Inspection, No CVA Tenderness, No Vertebral Tenderness Extremity: Normal Capillary Refill, Normal Inspection, Normal Range of Motion, Non Tender, No Calf Tenderness, No Pedal Edema Neurologic/Psychiatric: Alert, Oriented x3, No Motor/Sensory Deficits, Normal Mood/Affect Skin: Normal Color, Warm/Dry Lymphatic: No Adenopathy Results Results/Procedures Labs Laboratory Tests 04/04/22 16:17 04/05/22 05:02 Patient resulted labs reviewed. Assessment/Plan Admission Diagnosis Assessment: Recurrent and severe N/V and abdominal pain after leaving AMA from [facility] last week Gallstones on GB USG today Severe hypokalemia ELSY Plan: Laxatives IVF Potassium IV Admission Status: Observation Diagnosis/Problems Diagnosis/Problems (1) Nausea and vomiting Status: Acute Qualifiers: Vomiting type: unspecified Qualified Codes: R11.2 - Nausea with vomiting, unspecified (2) Abnormal weight loss Status: Acute (3) Hypokalemia Status: Acute (4) Acute kidney injury Status: Acute CARROL AMOS DO Apr 05, 2022 06:57
[2022-04-05] MEDS ORDERED: MAGNESIUM 1 GM/100 ML IVPB 100 ML IV ONE (07:00)
[2022-04-05 07:31] VITALS: BP 132/70
[2022-04-05] MEDS: PANTOPRAZOLE 40 MG (PROTONIX) VIAL IV SCH (08:41)
[2022-04-05] MEDS: POTASSIUM CL 10MEQ/50ML IVPB 50 ML IV SCH ×4 (08:41→12:30)
[2022-04-05] MEDS: SENNOSIDES 8.6 MG (SENOKOT) TAB PO SCH ×2 (08:41→20:32)
[2022-04-05] MEDS: DOCUSATE SODIUM 100 MG (COLACE) CAP PO SCH ×2 (08:41→20:32)
--- NOTE | 2022-04-05 09:06 | Consultation - Surgery ---
DEISYINDIO 04/05/22 0906: History of Present Illness History of Present Illness Patient Consulted On(chance/time) 04/05/22 08:55 Date Seen by Provider: Apr 05, 2022 Time Seen by Provider: 08:55 History of Present Illness Consult requested by Dr. Amos for abdominal pain, constipation, N/V Patient is a 46 year old female who originally presented to the hospital in [place] on 03/29 with chief complaint of abdominal pain, she left on 03/31 against medical advice. She had a CT scan performed which showed some fluid-filled bowel suggestive of gastroenteritis. Patient was then seen at [facility] ED on 04/02 for constipation, N/V, and abdominal pain. She was offered admission, but declined. The patient then presented again to the ED on 04/04 with recurrence of the same symptoms. Patient reports that she started having abdominal pain last week which she noticed on 03/29. The pain is in the epigastric region, RUQ and LUQ. She states that the pain comes and goes, sometimes being a mild dull ache and occasionally being a sharp pain. She attributes this pain to gas. Patient reports her last bowel movement was on the morning of 03/29 and was only a couple of small pellets. Patient reports that she has been passing flatus but only in small amounts and only a couple times a day. Patient has had N/V since 03/29 up to 10 times a day, which she describes as green to yellow in color. Nothing has made the N/V better, but eating or drinking more than a small sip of water causes an episode of emesis 15 minutes later. Patient reports she has not been able to keep any food down since 03/29 and last tried to eat some small bites of chicken, grapes, and crackers on 04/04 but had vomiting shortly after. Patient reports a 13 pound weight loss over the past week. Patient has had constipation in the past, but reports never this severe. Patient has tried miralax, gas-x, and suppositories, but none have helped her symptoms. Abdominal ultrasound showed cholelithiasis without signs of acute cholecystitis. Patient denies any illicit drug use, but did test positive for methamphetamine in the ED on 04/02. Allergies and Home Medications Allergies Uncoded Allergies: OPIOIDS (Adverse Reaction, Mild, Vomiting, 11/11/20) REPORTS SENSITIVITY TO OPIOIDS-N/V Patient Home Medication List Home Medication List Reviewed: Yes Albuterol Sulfate (Proair Hfa) 1 Puff Puff, 2 PUFF IH Q4H, (Reported) Entered as Reported by: MUMTAZ NUR on 11/11/201103 Last Action: Reviewed Ephedrine Sulfate (Bronkaid Max) 25 Mg Tablet, 25 MG PO BID, (Reported) Entered as Reported by: MUMTAZ NUR on 11/11/201103 Last Action: Reviewed L.acidoph & ParacaseiB.lactis (Probiotic) 1 Each Capsule, 1 EACH PO DAILY, (Reported) Entered as Reported by: MUMTAZ NUR on 11/11/201103 Last Action: Reviewed Lisinopril (Lisinopril) 5 Mg Tablet, 5 MG PO DAILY, (Reported) Entered as Reported by: MUMTAZ NUR on 11/11/201103 Last Action: Reviewed Multivitamin (Multi-Vitamin Daily) Unknown Strength Tablet, Unknown Dose PO DAILY, (Reported) Entered as Reported by: MUMTAZ NUR on 11/11/201103 Last Action: Reviewed Ondansetron (Ondansetron Odt) 4 Mg Tab.rapdis, 4 MG PO Q6H PRN for NAUSEA/VOMITING-1ST LINE Prescribed by: Nick Hill on 04/02/221554 Last Action: Reviewed Potassium Chloride (Potassium Chloride) 10 Meq Capsule.er, 10 MEQ PO DAILY Prescribed by: Nick Hill on 04/02/221554 Last Action: Reviewed Simethicone (Simethicone) 180 Mg Capsule, 180 MG PO, (Reported) Entered as Reported by: KATHI CAIN on 04/04/222149 Last Action: Reviewed Discontinued Medications Docusate Sodium (Dok) 100 Mg Capsule, 100 MG PO BID PRN for CONSTIPATION-1ST LINE Discontinued Reason: No Longer Taking Prescribed by: AVI FULLER on 11/18/20 1030 Last Action: Discontinued Hydrocodone Bit/Acetaminophen (HYDROcodone/APAP 7.5/325 TAB) 1 Ea Tablet, 2 EA PO Q6H PRN for Pain-See Instructions Discontinued Reason: No Longer Taking Prescribed by: AVI FULLER on 11/18/20 1030 Last Action: Discontinued Ibuprofen (Ibu) 600 Mg Tablet, 600 MG PO Q6H PRN for CRAMPS Discontinued Reason: No Longer Taking Prescribed by: AVI FULLER on 11/18/20 1030 Last Action: Discontinued Simethicone (Mi-Acid) 80 Mg Tab.chew, 40 MG PO TID PRN for INDIGESTION 2ND LINE Discontinued Reason: No Longer Taking Prescribed by: AVI FULLER on 11/18/20 1030 Last Action: Discontinued Past Lvsdbgp-Ibdkdh-Fuxpob Hx Patient Social History Smoking Status: Current Everyday Smoker (1/2 PPD 30+ years) Type Used: Cigarettes Recent Hopitalizations: No Alcohol Use?: No Have you traveled recently?: No Immunizations Up To Date Date of Influenza Vaccine: Jul 12, 2019 Seasonal Allergies Seasonal Allergies: Yes Surgeries History of Surgeries: Yes (ING HERNIA,CERVICAL CONIZATION,C-SEC X3) Surgeries: Bladder Surgery, Tubal Ligation Respiratory History of Respiratory Disorde: Yes Respiratory Disorders: Asthma Cardiovascular History of Cardiac Disorders: Yes Cardiac Disorders: Hypertension Neurological History of Neurological Disord: Yes Neurological Disorders: Headaches /Migraines Reproductive System Female Reproductive Disorders: Menstrual Problems [employer]LECT[employer]ST[employer]ER History: Tubal Ligation Genitourinary History of Genitourinary Disor: Yes (URINARY FREQUENCY) Gastrointestinal History of Gastrointestinal Di: Yes Gastrointestinal Disorders: Irritable Bowel Musculoskeletal History of Musculoskeletal Dis: Yes Musculoskeletal Disorders: Scoliosis Endocrine History of Endocrine Disorders: No HEENT History of HEENT Disorders: Yes (GLASSES/CONTACTS, DIMINISHED HEARING RIGHT EAR) Hearing Impairment: Hard of Hearing Cancer History of Cancer: No Psychosocial History of Psychiatric Problem: Yes Behavioral Health Disorders: Anxiety Integumentary History of Skin or Integumenta: No Blood Transfusions History of Blood Disorders: Yes (ANEMIA) Review of Systems-General Constitutional: chills; No fever; weakness EENTM: double vision (Patient reported a few minute episode evening of 03/28); No hearing loss Respiratory: No cough, No dyspnea on exertion Cardiovascular: No chest pain, No palpitations Gastrointestinal: RUQ, LUQ, constipation, nausea, vomiting Genitourinary: No dysuria, No frequency : No Musculoskeletal: back pain (Lumbar and thoracic, mild); No joint pain Skin: No change in color, No change in hair/nails Physical Exam-General Problems Physical Exam Vital Signs Vital Signs - First Documented 04/04/22 04/04/22 04/04/22 15:22 20:17 21:18 Temp 37.0 Pulse 99 Resp 16 B/P (MAP) 100/71 (81) Pulse Ox 98 O2 Delivery Room Air FiO2 21 Capillary Refill : General Appearance: no apparent distress, thin HEENT: PERRL/EOMI, normal ENT inspection Neck: non-tender, supple Respiratory: chest non-tender, no respiratory distress Cardiovascular: regular rate, rhythm, no edema Gastrointestinal: non tender, no pulsatile mass Rectal: deferred Back: normal inspection, no CVA tenderness Extremities: non-tender, normal capillary refill Neurologic/Psychiatric: alert, normal mood/affect, oriented x 3 Skin: normal color, warm/dry Lymphatic: no adenopathy Data Review Labs Laboratory Tests 04/04/22 16:17: White Blood Count 9.8, Red Blood Count 5.15H, Hemoglobin 17.0H, Hematocrit 48, Mean Corpuscular Volume 94, Mean Corpuscular Hemoglobin 33, Mean Corpuscular Hemoglobin Concent 35, Red Cell Distribution Width 11.7, Platelet Count 501H, Mean Platelet Volume 10.0, Immature Granulocyte % (Auto) 0, Neutrophils (%) (Au to) 80H, Lymphocytes (%) (Auto) 11L, Monocytes (%) (Auto) 8, Eosinophils (%) (Auto) 1, Basophils (%) (Auto) 1, Neutrophils # (Auto) 7.8, Lymphocytes # (Auto) 1.1, Monocytes # (Auto) 0.7, Eosinophils # (Auto) 0.1, Basophils # (Auto) 0.1, Immature Granulocyte # (Auto) 0.0, Sodium Level 139, Potassium Level 2.9L, Chloride Level 87L, Carbon Dioxide Level 30, Anion Gap 22H, Blood Urea Nitrogen 52H, Creatinine 1.91H, Estimat Glomerular Filtration Rate 32, BUN/Creatinine Ratio 27, Glucose Level 126H, Calcium Level 11.9H, Corrected Calcium , Magnesium Level 2.4, Total Bilirubin 0.5, Aspartate Amino Transf (AST/SGOT) 79H, Alanine Aminotransferase (ALT/SGPT) 92H, Alkaline Phosphatase 92, C-Reactive Protein High Sensitivity 0.50, Total Protein 9.7H, Albumin 5.4H 04/04/22 17:47: Urine Color YELLOW, Urine Clarity SL CLOUDY, Urine pH 5.0, Urine Specific [place] 1.025H, Urine Protein 1+H, Urine Glucose (UA) NEGATIVE, Urine Ketones 1+H, Urine Nitrite NEGATIVE, Urine Bilirubin 1+H, Urine Urobilinogen 0.2, Urine Leukocyte Esterase NEGATIVE, Urine RBC (Auto) NEGATIVE, Urine RBC NONE, Urine WBC 2-5, Urine Squamous Epithelial Cells 0-2, Urine Crystals NONE, Urine Bacteria NEGATIVE, Urine Casts NONE, Urine Mucus NEGATIVE, Urine Culture Indicated NO 04/05/22 05:02: White Blood Count 9.5, Red Blood Count 3.94, Hemoglobin 13.1#, Hematocrit 38, Mean Corpuscular Volume 96, Mean Corpuscular Hemoglobin 33, Mean Corpuscular Hemoglobin Concent 35, Red Cell Distribution Width 11.6, Platelet Count 343, Mean Platelet Volume 10.0, Immature Granulocyte % (Auto) 0, Neutrophils (%) (Auto) 75, Lymphocytes (%) (Auto) 15, Monocytes (%) (Auto) 8, Eosinophils (%) (Auto) 2, Basophils (%) (Auto) 1, Neutrophils # (Auto) 7.1, Lymphocytes # (Auto) 1.4, Monocytes # (Auto) 0.7, Eosinophils # (Auto) 0.1, Basophils # (Auto) 0.1, Immature Granulocyte # (Auto) 0.0, Sodium Level 137, Potassium Level 3.0L, Chloride Level 97L, Carbon Dioxide Level 24, Anion Gap 16H, Blood Urea Nitrogen 41H, Creatinine 0.91, Estimat Glomerular Filtration Rate 78, BUN/Creatinine Ratio 45, Glucose Level 94, Calcium Level 9.1, Corrected Calcium 9.1, Magnesium Level 1.9, Total Bilirubin 0.4, Aspartate Amino Transf (AST/SGOT) 40H, Alanine Aminotransferase (ALT/SGPT) 67H, Alkaline Phosphatase 70, Total Protein 6.9, Albumin 4.0 Assessment/Plan Assessment/Plan Assessment/Plan Constipation N/V Abdominal pain Dehydration ELSY - likely due to dehydration Cholelithiasis Continue laxatives Continue antiemetics Continue pain control IV fluids Currently NPO Monitor BUN/Cr Continue Protonix Consider small bowel follow through with gastrografin Discuss possible cholecystectomy. KIRBY HUNTER DO 04/05/22 1241: History of Present Illness History of Present Illness History of Present Illness Consult requested by Dr. Amos for abdominal pain constipation nausea vomiting Patient 46-year-old female who last week was in [facility]. She states that she was at the ngo the next day started having significant abdominal pain and seek medical attention. Patient had a CT scan performed at that time she states that suggestive of gastroenteritis/ileus. Patient was unhappy with progress they were not really doing anything she felt so she left the hospital and then came to the emergency department because she continued to have nausea and vomiting and abdominal pain. Abdominal pain is tender throughout the entire abdomen. Is more of a dull ache with occasional sharp pains. No radiation of the pain. She states that she has passing flatus at this time but not really having any significant stools. She is having nausea and vomiting. She had abdominal x-ray that demonstrated significant stool load with contrast in the colon still from her CAT scan. Patient had an ultrasound that showed cholelithiasis without signs of acute cholecystitis. She tested positive for methamphetamine on 04/02 but she denies use. She has no other complaints at this time. Is going to feel better because she is not been able to eat for about a week she states. Allergies and Home Medications Allergies Uncoded Allergies: OPIOIDS (Adverse Reaction, Mild, Vomiting, 11/11/20) REPORTS SENSITIVITY TO OPIOIDS-N/V Patient Home Medication List Home Medication List Reviewed: Yes Albuterol Sulfate (Proair Hfa) 1 Puff Puff, 2 PUFF IH Q4H, (Reported) Entered as Reported by: MUMTAZ NUR on 11/11/201103 Last Action: Reviewed Ephedrine Sulfate (Bronkaid Max) 25 Mg Tablet, 25 MG PO BID, (Reported) Entered as Reported by: MUMTAZ NUR on 11/11/201103 Last Action: Reviewed L.acidoph & Paracasei,B.lactis (Probiotic) 1 Each Capsule, 1 EACH PO DAILY, (Reported) Entered as Reported by: MUMTAZ NUR on 11/11/201103 Last Action: Reviewed Lisinopril (Lisinopril) 5 Mg Tablet, 5 MG PO DAILY, (Reported) Entered as Reported by: MUMTAZ NUR on 11/11/201103 Last Action: Reviewed Multivitamin (Multi-Vitamin Daily) Unknown Strength Tablet, Unknown Dose PO DAILY, (Reported) Entered as Reported by: MUMTAZ NUR on 11/11/201103 Last Action: Reviewed Ondansetron (Ondansetron Odt) 4 Mg Tab.rapdis, 4 MG PO Q6H PRN for NAUSEA/VOMITING-1ST LINE Prescribed by: Nick Hill on 04/02/221554 Last Action: Reviewed Potassium Chloride (Potassium Chloride) 10 Meq Capsule.er, 10 MEQ PO DAILY Prescribed by: Nick Hill on 04/02/221554 Last Action: Reviewed Simethicone (Simethicone) 180 Mg Capsule, 180 MG PO, (Reported) Entered as Reported by: KATHI CAIN on 04/04/222149 Last Action: Reviewed Discontinued Medications Docusate Sodium (Dok) 100 Mg Capsule, 100 MG PO BID PRN for CONSTIPATION-1ST LINE Discontinued Reason: No Longer Taking Prescribed by: AVI FULLER on 11/18/20 103 Last Action: Discontinued Hydrocodone Bit/Acetaminophen (HYDROcodone/APAP 7.5/325 TAB) 1 Ea Tablet, 2 EA PO Q6H PRN for Pain-See Instructions Discontinued Reason: No Longer Taking Prescribed by: AVI FULLER on 11/18/20 103 Last Action: Discontinued Ibuprofen (Ibu) 600 Mg Tablet, 600 MG PO Q6H PRN for CRAMPS Discontinued Reason: No Longer Taking Prescribed by: AVI FULLER on 11/18/20 103 Last Action: Discontinued Simethicone (Mi-Acid) 80 Mg Tab.chew, 40 MG PO TID PRN for INDIGESTION 2ND LINE Discontinued Reason: No Longer Taking Prescribed by: AVI FULLER on 11/18/201029 Last Action: Discontinued Past Lmjzucw-Iesnwu-Pgcvyh Hx Surgeries History of Surgeries: Yes (small bowel resection hystertectomy) Reviewed Nursing Assessment Reviewed/Agree w Nursing PMH: Yes Family Medical History Significant Family History: No Pertinent Family Hx Review of Systems-General Constitutional: chills; No fever; weakness EENTM: double vision (Patient reported a few minute episode evening of 03/28); No hearing loss Respiratory: No cough, No dyspnea on exertion Cardiovascular: No chest pain, No palpitations Gastrointestinal: abdominal pain (diffuse), constipation, nausea, vomiting Genitourinary: No dysuria, No frequency Musculoskeletal: back pain (Lumbar and thoracic, mild); No joint pain Skin: No change in color, No change in hair/nails Psychiatric/Neurological: Denies Anxiety, Denies Depressed, Denies Emotional Problems All Other Systems Reviewed Negative Unless Noted: Yes (Negative excepted noted.) Physical Exam-General Problems Physical Exam General Appearance: thin (anxious) HEENT: PERRL/EOMI, normal ENT inspection Neck: non-tender, supple Respiratory: chest non-tender, no respiratory distress, no accessory muscle use Cardiovascular: regular rate, rhythm, no JVD Gastrointestinal: distended, tenderness (minimal discomfort on exam diffusely) Rectal: deferred Back: normal inspection, no CVA tenderness Extremities: non-tender, normal inspection Neurologic/Psychiatric: alert (anxious appearing), oriented x 3 Skin: normal color, warm/dry Lymphatic: no adenopathy Assessment/Plan Assessment/Plan Assessment/Plan Constipation N/V Abdominal pain Dehydration ELSY - likely due to dehydration Cholelithiasis Continue laxatives Continue antiemetics Continue pain control IV fluids Currently NPO Monitor BUN/Cr Continue Protonix Consider small bowel follow through with gastrografin, however KUB demonstrating contrast in the abdomen so this would not be a good study. We will do a bottle of mag citrate. And also enema due to the significant stool load in the colon. This could be a lot of her discomfort. Patient also with cholelithiasis which could be contributing to her symptoms however there is no evidence of cholecystitis by ultrasound just cholelithiasis. If no improvement after above work-up would consider cholecystectomy. Supervisory-Addendum Brief Verification & Attestation Participated in pt care: history, MDM, physical Personally performed: exam, history, MDM, supervision of care Care discussed with: Medical Student Procedures: n/a Results interpretation: Verified all documentation Verification and Attestation of Medical Student E/M Service A medical student performed and documented this service in my presence. I reviewed and verified all information documented by the medical student and made modifications to such information, when appropriate. I personally performed the physical exam and medical decision making. Kirby Hunter Apr 05, 2022,12:45 INDIO OLIVAS Apr 05, 2022 09:06 KIRBY HUNTER DO Apr 05, 2022 12:41
--- NOTE | 2022-04-05 10:36 | Diagnostic Imaging Report ---
Exam: Ultrasound abdomen complete. Date: April 05, 2022. Indication: 46-year-old female, abdominal pain. Comparison: Abdominal radiograph April 04, 2022. Findings: The liver is unremarkable in size and contour. There is an area of increased echogenicity near the ligamentum teres which may relate to an area of focal fat. The main portal vein is patent. There are multiple shadowing gallstones. The gallbladder is not distended. There is no identified pericholecystic fluid. There is no intrahepatic or extrahepatic bile duct dilation. The common bile duct measures 5 mm in diameter. Limited ultrasound assessment of the pancreas is unremarkable. The right kidney measures 1.7 x 5.0 x 4.6 cm in size. The left kidney measures 11.3 x 5.2 x 4.6 cm in size. There is no hydronephrosis. There is no demonstrated renal mass. The spleen is normal in size. The inferior vena cava and abdominal aorta are not particularly well seen. Impression: 1. Cholelithiasis without convincing evidence of acute cholecystitis. If there is concern clinically for acute cholecystitis, nuclear medicine HIDA scan would be recommended for further evaluation. 2. No biliary ductal dilation. 3. Area of echogenicity in the liver near the ligamentum teres most likely relating to an area of focal fat. Dictated by: Dictated on workstation # [id number]
[2022-04-05 11:43] VITALS: BP 149/70
[2022-04-05] MEDS ORDERED: polyethylene glycoL Bowel Prep(MIRALAX) 238 GM PO SCH (13:30)
[2022-04-05 14:35] LABS: AMPHETAMINE SCREEN, URINE NEGATIVE (NEGATIVE); BARBITURATE SCREEN URINE NEGATIVE (NEGATIVE); BENZODIAZEPINES SCREEN URINE NEGATIVE (NEGATIVE); CANNABINOID SCREEN, URINE NEGATIVE (NEGATIVE); COCAINE SCREEN URINE NEGATIVE (NEGATIVE); METHADONE STAT NEGATIVE (NEGATIVE); OPIATE SCREEN URINE NEGATIVE (NEGATIVE); OXYCODONE STAT NEGATIVE (NEGATIVE); PROPOXYPHENE STAT NEGATIVE (NEGATIVE); TRICYCLIC ANTIDEPRESSANTS SCRE NEGATIVE (NEGATIVE)
[2022-04-05] MEDS ORDERED: NICOTINE 2 MG GUM (NICORETTE) PO PRN (15:15)
[2022-04-05 15:30] VITALS: BP 142/73
[2022-04-05 19:58] VITALS: BP 147/78
[2022-04-05] MEDS: ENOXAPARIN INJECTION 30 MG/0.3 ML SYR SC SCH (20:33)
[2022-04-05] MEDS: ACETAMINOPHEN 325 MG TABLET PO PRN (20:36)
[2022-04-06 00:07] VITALS: BP 137/69
[2022-04-06] MEDS: ONDANSETRON 4 MG/2 ML (SDV) Z0FRAN IV PRN (02:54)
[2022-04-06] MEDS: NS IV 1000 ML 1,000 ML IV SCH ×2 (03:44→12:17)
[2022-04-06 04:14] VITALS: BP 129/64
[2022-04-06 05:37] LABS: BASOPHILS # (AUTO) 0.1 10^3/uL (0.0-0.1); BASOPHILS % (AUTO) 1 % (0-10); EOSINOPHILS # (AUTO) 0.2 10^3/uL (0.0-0.3); EOSINOPHILS % (AUTO) 1 % (0-10); HEMATOCRIT 37 % (35-52); HEMOGLOBIN 12.5 g/dL (11.5-16.0); LYMPHOCYTES # (AUTO) 1.3 10^3/uL (1.0-4.0); LYMPHOCYTES % (AUTO) 10 % (12-44); MEAN CORPUSCULAR HEMOGLOBIN 33 pg (25-34); MEAN CORPUSCULAR HGB CONC 34 g/dL (32-36); MEAN CORPUSCULAR VOLUME 96 fL (80-99); MEAN PLATELET VOLUME 10.1 fL (9.0-12.2); MONOCYTES # (AUTO) 1.1 10^3/uL (0.0-1.0); MONOCYTES % (AUTO) 9 % (0-12); NEUTROPHILS # (AUTO) 9.9 10^3/uL (1.8-7.8); NEUTROPHILS % (AUTO) 79 % (42-75); PLATELET COUNT 321 10^3/uL (130-400); WHITE BLOOD COUNT 12.5 10^3/uL (4.3-11.0)
[2022-04-06 05:54] LABS: ALBUMIN 3.8 GM/DL (3.2-4.5); BILIRUBIN,TOTAL 0.4 MG/DL (0.1-1.0); CALCIUM 9.1 MG/DL (8.5-10.1); CREATININE SERUM 0.74 MG/DL (0.60-1.30); POTASSIUM 2.8 MMOL/L (3.6-5.0); TOTAL PROTEIN 6.5 GM/DL (6.4-8.2)
[2022-04-06] MEDS: SIMETHICONE 80 MG (MYLICON) CHEW PO PRN ×3 (06:29→18:35)
--- NOTE | 2022-04-06 07:12 | Progress Note - Surgery ---
HOLGER ARAUJO 04/06/22 0711: Subjective Date Seen by a Provider: Apr 06, 2022 Time Seen by a Provider: 07:15 Subjective/Events-last exam Patient says she is feeling worse today. She woke up this morning and had abdominal pain rated 8/10 and had emesis that she described as "bile mixed with orange powerade". She walked around the halls of the hospital and that made her feel a little better. Her abdominal pain is currently a 4/10. She is still experiencing nausea. She claimed her last BM was yesterday after she received 3 enemas and she said it was still very small. She is currently NPO but did say she has been drinking an orange powerade. Review of Systems HEENT: No Dysphasia, No Sore Throat Pulmonary: No Dyspnea, No Cough Cardiovascular: No: Chest Pain, Lt Headedness Gastrointestinal: Nausea, Vomiting, Abdominal Pain (claims it is everywhere because she is constipated), Constipation; No: Melena, Hematochezia Objective Exam Vital Signs Date Time Temp Pulse Resp B/P (MAP) Pulse Ox O2 Delivery O2 Flow Rate FiO2 04/06/22 07:00 37.1 04/06/22 04:14 37.1 65 16 129/64 (85) 97 Room Air 04/06/22 00:07 37.5 86 18 137/69 (91) 100 Room Air 04/05/22 21:58 100 Room Air 04/05/22 21:01 37.1 04/05/22 19:58 37.1 92 20 147/78 (101) 100 Room Air 04/05/22 19:35 98 Room Air 04/05/22 15:30 36.6 74 20 142/73 (96) 97 Room Air 04/05/22 11:43 37.5 96 18 149/70 (96) 99 Room Air 04/05/22 07:31 37.3 95 20 132/70 (90) 95 Room Air I & O 04/06/22 07:00 Intake Total 800 ml Output Total 100 ml Balance 700 ml Capillary Refill : General Appearance: Mild Distress (she was very emotional this AM, concerned about why she has not had a BM), Thin HEENT: PERRL/EOMI, Moist Mucous Membranes Neck: Non Tender, Supple Respiratory: Lungs Clear, Normal Breath Sounds, No Accessory Muscle Use, No Respiratory Distress Cardiovascular: Regular Rate, Rhythm, No Murmur Peripheral Pulses: 2+ Dorsalis Pedis (R), 2+ Left Dors-Pedis (L), 2+ Radial Pulses (R), 2+ Radial Pulses (L) Gastrointestinal: distended, tenderness (most tender in LUQ and epigastric area, says it is uncomfortable to palpation everywhere else but not painful), other (hypoactive bowel sounds) Extremity: Non Tender, No Calf Tenderness, No Pedal Edema Neurologic/Psychiatric: Alert, Oriented x3 Skin: Normal Color, Warm/Dry Lymphatic: No Adenopathy (cervical) Results Lab Laboratory Tests 04/06/22 05:06: White Blood Count 12.5H, Red Blood Count 3.81, Hemoglobin 12.5, Hematocrit 37, Mean Corpuscular Volume 96, Mean Corpuscular Hemoglobin 33, Mean Corpuscular Hemoglobin Concent 34, Red Cell Distribution Width 11.6, Platelet Count 321, Mean Platelet Volume 10.1, Immature Granulocyte % (Auto) 0, Neutrophils (%) (Auto) 79H, Lymphocytes (%) (Auto) 10L, Monocytes (%) (Auto) 9, Eosinophils (%) (Auto) 1, Basophils (%) (Auto) 1, Neutrophils # (Auto) 9.9H, Lymphocytes # (Auto) 1.3, Monocytes # (Auto) 1.1H, Eosinophils # (Auto) 0.2, Basophils # (Auto) 0.1, Immature Granulocyte # (Auto) 0.1, Sodium Level 140, Potassium Level 2.8L, Chloride Level 98, Carbon Dioxide Level 25, Anion Gap 17H, Blood Urea Nitrogen 31H, Creatinine 0.74, Estimat Glomerular Filtration Rate 100, BUN/Creatinine Ratio 42, Glucose Level 85, Calcium Level 9.1, Corrected Calcium 9.3, Total Bilirubin 0.4, Aspartate Amino Transf (AST/SGOT) 28, Alanine Aminotransferase (ALT/SGPT) 54, Alkaline Phosphatase 64, Total Protein 6.5, Albumin 3.8 Assessment/Plan Assessment/Plan Assessment/Plan Constipation N/V Abdominal pain Hypokalemia Leukocytosis Cholelithiasis Continue on zofran for nausea. Tylenol for pain control. She has received two enemas without a significant BM, she had not finished her Miralax when I saw her this AM. Wait to see if the Miralax works. Encouraged patient to continue ambulating as much as she can. Continue on IV fluids, add potassium replacement with KCl. Obtain a CT scan to rule out obstruction. Possible cholecystectomy if no improvement in symptoms. ERNIEREIDKELSEY Delgadillo DO 04/06/22 1327: Subjective Time Seen by a Provider: 13:07 Subjective/Events-last exam Pt seen and examined, feeling better now and tolerating clears. She is asking for suppository and thinks she can try PO K+ supplements. States the enemas "did nothing". Does not have any RUQ pain, almost all is in LLQ and suprapubic. Review of Systems HEENT: No Sore Throat Pulmonary: No Dyspnea, No Cough Cardiovascular: No: Chest Pain Gastrointestinal: Nausea, Vomiting, Abdominal Pain (claims it is everywhere because she is constipated), Constipation; No: Melena, Hematochezia Objective Exam General Appearance: Mild Distress (she was very emotional this AM, concerned about why she has not had a BM) HEENT: PERRL/EOMI, Moist Mucous Membranes Respiratory: Lungs Clear, Normal Breath Sounds, No Accessory Muscle Use, No Respiratory Distress Cardiovascular: Regular Rate, Rhythm, No Murmur Gastrointestinal: distended, tenderness (most tender in LUQ and epigastric area, says it is uncomfortable to palpation everywhere else but not painful) Skin: Normal Color, Warm/Dry Assessment/Plan Assessment/Plan Assessment/Plan Constipation Hypokalemia N/V Abdominal pain Leukocytosis Cholelithiasis - most likely just an incidental finding Continue on zofran for nausea. Tylenol for pain control. She has received two enemas without a significant BM, no BM with Miralax and therefore will try a Dulcolax suppository. Encouraged patient to continue ambulating as much as she can. Continue on IV fluids, add potassium replacement with KCl. Obtain a CT scan to rule out obstruction. Supervisory-Addendum Brief Verification & Attestation Participated in pt care: history, MDM, physical Personally performed: exam, history, MDM, supervision of care Care discussed with: Medical Student Procedures: n/a Verification and Attestation of Medical Student E/M Service A medical student performed and documented this service. I then reviewed and verified all information documented by the medical student and made modifications to such information, when appropriate. I personally performed a physical exam, medical decision making and then discussed any differences between the notes and made revisions as necessary to create one note. Kelsey Fox , 04/06/22 , 13:27 HOLGER ARAUJO Apr 06, 2022 07:11 KELSEY FOX DO Apr 06, 2022 13:27
[2022-04-06 08:00] VITALS: BP 143/78
[2022-04-06] MEDS: ONDANSETRON 4 MG (ZOFRAN) ORAL DISSOLVE TAB PO PRN ×2 (08:04→21:16)
[2022-04-06] MEDS: ACETAMINOPHEN 325 MG TABLET PO PRN ×2 (08:05→15:48)
[2022-04-06] MEDS: SENNOSIDES 8.6 MG (SENOKOT) TAB PO SCH ×2 (08:05→21:16)
[2022-04-06] MEDS: PANTOPRAZOLE 40 MG (PROTONIX) VIAL IV SCH (08:05)
[2022-04-06] MEDS: DOCUSATE SODIUM 100 MG (COLACE) CAP PO SCH ×2 (08:05→21:15)
[2022-04-06 12:00] VITALS: BP 124/74
[2022-04-06] MEDS ORDERED: POTA-177 PO (13:09)
[2022-04-06] MEDS ORDERED: ONDA4TAB11 PO (13:09)
[2022-04-06] MEDS ORDERED: ASPI1TAB23 PO (13:09)
[2022-04-06] MEDS ORDERED: IBUP-2473 PO (13:09)
[2022-04-06] MEDS ORDERED: ACET-2267 PO (13:09)
[2022-04-06] MEDS ORDERED: BISACODYL 10 MG SUPP (DULCOLAX) PR NR (13:15)
[2022-04-06 15:18] VITALS: BP 140/88
--- NOTE | 2022-04-06 18:54 | Progress Note ---
Subjective Subjective/Events-last exam Patient states that she has still been having some abdominal pain but that it is improved. She was on the toliet because she thought that she needed to pass gas and did some. No BM today. Tolerating gatorade this AM. She has been up walking. Review of Systems Gastrointestinal: Nausea, Vomiting, Abdominal Pain, Constipation Genitourinary: Frequency Objective Exam Last Set of Vital Signs Vital Signs Date Time Temp Pulse Resp B/P (MAP) Pulse Ox O2 Delivery O2 Flow Rate FiO2 04/06/22 15:18 36.9 96 18 140/88 (105) 100 Room Air 04/04/22 21:18 21 Capillary Refill : I&O Intake and Output 04/06/22 00:00 Intake Total 1200 ml Output Total 450 ml Balance 750 ml Intake Oral 200 ml IV Total 1000 ml Output Urine Total 450 ml # Voids 1 # Emeses 3 General: Alert, Oriented X3 Lungs: Clear to Auscultation, Normal Air Movement Heart: Regular Rate, No Murmurs Abdomen: Soft Extremities: No Edema, No Tenderness/Swelling Neuro: Normal Speech, Strength at 5/5 X4 Ext Psych/Mental Status: Mental Status NL, Mood NL Results/Procedures Lab Laboratory Tests 04/06/22 05:06: White Blood Count 12.5H, Red Blood Count 3.81, Hemoglobin 12.5, Hematocrit 37, Mean Corpuscular Volume 96, Mean Corpuscular Hemoglobin 33, Mean Corpuscular Hemoglobin Concent 34, Red Cell Distribution Width 11.6, Platelet Count 321, Mean Platelet Volume 10.1, Immature Granulocyte % (Auto) 0, Neutrophils (%) (Auto) 79H, Lymphocytes (%) (Auto) 10L, Monocytes (%) (Auto) 9, Eosinophils (%) (Auto) 1, Basophils (%) (Auto) 1, Neutrophils # (Auto) 9.9H, Lymphocytes # (Auto) 1.3, Monocytes # (Auto) 1.1H, Eosinophils # (Auto) 0.2, Basophils # (Auto) 0.1, Immature Granulocyte # (Auto) 0.1, Sodium Level 140, Potassium Level 2.8L, Chloride Level 98, Carbon Dioxide Level 25, Anion Gap 17H, Blood Urea Nitrogen 31H, Creatinine 0.74, Estimat Glomerular Filtration Rate 100, BUN/Creatinine Ratio 42, Glucose Level 85, Calcium Level 9.1, Corrected Calcium 9.3, Total Bilirubin 0.4, Aspartate Amino Transf (AST/SGOT) 28, Alanine Aminotransferase (ALT/SGPT) 54, Alkaline Phosphatase 64, Total Protein 6.5, Albumin 3.8 Assessment/Plan Assessment/Plan (1) Constipation Status: Acute Assessment & Plan: 04/06: Continue CLD, Miralax when tolerating PO, Surgery consulted and following, appreciate recommendations Qualifiers: Qualified Codes: K59.00 - Constipation, unspecified (2) Hypokalemia Status: Acute Assessment & Plan: 04/06: She would like to try PO replacement (3) Nausea and vomiting Status: Acute Assessment & Plan: 04/06: Improving, advance diet as tolerated once having BMs and flatus Qualifiers: Qualified Codes: R11.2 - Nausea with vomiting, unspecified (4) Cholelithiases Status: Chronic Assessment & Plan: 04/06: Will continue to monitor but like incidental finding SKIP NIETO MD Apr 06, 2022 18:54
[2022-04-06 19:50] VITALS: BP 134/84
[2022-04-06] MEDS: ENOXAPARIN INJECTION 30 MG/0.3 ML SYR SC SCH (21:16)
[2022-04-06] MEDS ORDERED: BISACODYL 10 MG SUPP (DULCOLAX) ONE (22:22)
[2022-04-06] MEDS ORDERED: BISACODYL 10 MG SUPP (DULCOLAX) PR ONE (22:30)
[2022-04-07] VITALS: BP 125/81
[2022-04-07] MEDS: ANTACID SUSP 30 ML UDC (MYLANTA) PO PRN ×2 (02:44→07:41)
[2022-04-07 04:00] VITALS: BP 123/74
[2022-04-07] MEDS: ACETAMINOPHEN 325 MG TABLET PO PRN (04:09)
[2022-04-07 05:34] LABS: BASOPHILS # (AUTO) 0.1 10^3/uL (0.0-0.1); BASOPHILS % (AUTO) 0 % (0-10); EOSINOPHILS # (AUTO) 0.2 10^3/uL (0.0-0.3); EOSINOPHILS % (AUTO) 1 % (0-10); HEMATOCRIT 38 % (35-52); HEMOGLOBIN 13.3 g/dL (11.5-16.0); LYMPHOCYTES # (AUTO) 1.3 10^3/uL (1.0-4.0); LYMPHOCYTES % (AUTO) 9 % (12-44); MEAN CORPUSCULAR HEMOGLOBIN 33 pg (25-34); MEAN CORPUSCULAR HGB CONC 35 g/dL (32-36); MEAN CORPUSCULAR VOLUME 95 fL (80-99); MEAN PLATELET VOLUME 10.3 fL (9.0-12.2); MONOCYTES # (AUTO) 1.4 10^3/uL (0.0-1.0); MONOCYTES % (AUTO) 9 % (0-12); NEUTROPHILS # (AUTO) 12.2 10^3/uL (1.8-7.8); NEUTROPHILS % (AUTO) 81 % (42-75); PLATELET COUNT 337 10^3/uL (130-400); WHITE BLOOD COUNT 15.1 10^3/uL (4.3-11.0)
[2022-04-07 05:47] LABS: ALBUMIN 4.3 GM/DL (3.2-4.5); BILIRUBIN,TOTAL 0.6 MG/DL (0.1-1.0); CREATININE SERUM 0.79 MG/DL (0.60-1.30); POTASSIUM 2.7 MMOL/L (3.6-5.0); TOTAL PROTEIN 7.4 GM/DL (6.4-8.2)
[2022-04-07 05:52] LABS: RBC MORPH NORMAL
[2022-04-07 05:59] LABS: BASOPHILS % (MANUAL) 1 %; EOSINOPHILS % (MANUAL) 2 %; LYMPHOCYTES % (MANUAL) 11 %; MONOCYTES % (MANUAL) 6 %; NEUTROPHILS % (MANUAL) 80 %
[2022-04-07] MEDS ORDERED: KCL 20 MEQ TAB (K-DUR) PO SCH (07:00)
--- NOTE | 2022-04-07 07:33 | Progress Note - Surgery ---
HOLGER ARAUJO 04/07/22 0733: Subjective Date Seen by a Provider: Apr 07, 2022 Time Seen by a Provider: 07:15 Subjective/Events-last exam Patient claims she is feeling a little bit better today. She is not in any pain she just feels tightness and pressure in her abdomen. She is not having as much nausea, she did have 2 episodes of emesis yesterday. She did not have a feeling of nausea when this occurred, just felt like "acid was filling up into her throat" which has been helped with protonix and mylanta. She ate chicken broth yesterday and was able to keep it down as long as she took very small sips of it. She has not had a BM, has not passed gas since yesterday morning despite receiving suppositories yesterday. Review of Systems HEENT: No Dysphasia; Sore Throat (from vomiting) Pulmonary: No Dyspnea, No Cough Cardiovascular: No: Chest Pain, Lt Headedness Gastrointestinal: Vomiting (last episode yesterday, described as green mixed with orange), Constipation, Other (endorses pressure and a feeling of fullness in her abdomen); No: Nausea, Abdominal Pain Genitourinary: No Dysuria, No Frequency, No Hematuria Objective Exam Vital Signs Date Time Temp Pulse Resp B/P (MAP) Pulse Ox O2 Delivery O2 Flow Rate FiO2 04/07/22 04:00 37.2 95 18 123/74 (90) 98 Room Air 04/07/22 00:00 37.2 102 18 125/81 (96) 99 Room Air 04/06/22 21:00 Room Air 04/06/22 19:50 37.3 104 16 134/84 (101) 99 Room Air 04/06/22 15:18 36.9 96 18 140/88 (105) 100 Room Air 04/06/22 12:00 37.0 97 18 124/74 (91) 99 Room Air 04/06/22 08:00 37.1 81 16 143/78 (99) 100 Room Air 04/06/22 08:00 Room Air 04/06/22 07:54 98 Room Air l I & O 04/07/22 07:00 Intake Total 2690 ml Balance 2690 ml Capillary Refill : General Appearance: No Apparent Distress, Thin HEENT: PERRL/EOMI, Moist Mucous Membranes Neck: Non Tender, Supple Respiratory: Lungs Clear, Normal Breath Sounds, No Accessory Muscle Use, No Respiratory Distress Cardiovascular: Regular Rate, Rhythm, No Murmur Peripheral Pulses: 2+ Dorsalis Pedis (R), 2+ Left Dors-Pedis (L), 2+ Radial Pulses (R), 2+ Radial Pulses (L) Gastrointestinal: distended; No tenderness; other (she had no tenderness to palpation, she claimed palpation to lower abdomen increased feeling of pressure) Extremity: Non Tender, No Calf Tenderness, No Pedal Edema Neurologic/Psychiatric: Alert, Oriented x3 Skin: Normal Color, Warm/Dry Lymphatic: No Adenopathy (cervical) Results Lab Laboratory Tests 04/07/22 05:09: White Blood Count 15.1H, Red Blood Count 4.04, Hemoglobin 13.3, Hematocrit 38, Mean Corpuscular Volume 95, Mean Corpuscular Hemoglobin 33, Mean Corpuscular Hemoglobin Concent 35, Red Cell Distribution Width 11.5, Platelet Count 337, Mean Platelet Volume 10.3, Immature Granulocyte % (Auto) 0, Neutrophils (%) (Auto) 81H, Lymphocytes (%) (Auto) 9L, Monocytes (%) (Auto) 9, Eosinophils (%) (Auto) 1, Basophils (%) (Auto) 0, Neutrophils # (Auto) 12.2H, Lymphocytes # (A uto) 1.3, Monocytes # (Auto) 1.4H, Eosinophils # (Auto) 0.2, Basophils # (Auto) 0.1, Immature Granulocyte # (Auto) 0.1, Neutrophils % (Manual) 80, Lymphocytes % (Manual) 11, Monocytes % (Manual) 6, Eosinophils % (Manual) 2, Basophils % (Manual) 1, Band Neutrophils , Blood Morphology Comment NORMAL, Sodium Level 135, Potassium Level 2.7L, Chloride Level 87L, Carbon Dioxide Level 26, Anion Gap 22H, Blood Urea Nitrogen 30H, Creatinine 0.79, Estimat Glomerular Filtration Rate 92, BUN/Creatinine Ratio 38, Glucose Level 94, Calcium Level 10.0, Corrected Calcium 9.8, Total Bilirubin 0.6, Aspartate Amino Transf (AST/SGOT) 30, Alanine Aminotransferase (ALT/SGPT) 58H, Alkaline Phosphatase 73, Total Protein 7.4, Albumin 4.3 Assessment/Plan Assessment/Plan Assessment/Plan Constipation Hypokalemia N/V Abdominal pain Leukocytosis Cholelithiasis - most likely just an incidental finding Continue on zofran for nausea PRN. Protonix and mylanta for acid suppression. Tylenol for pain control. She has received two enemas without a significant BM, no BM with Miralax or Dulcolax suppository. Encouraged patient to continue ambulating as much as she can. Potassium replacement with KCl, monitor with AM labs. WBC count is 15.1 today, increased from 12.[address] scan to rule out obstruction. WALTER OLGUIN DO 04/07/22 1137: Subjective Time Seen by a Provider: 11:07 Subjective/Events-last exam Pt seen and examined, stated she had "mucous" BM last night. States she took Mylanta and "felt something shift". Shw is tolerating most of her diet. Her main worry is "withering away". Review of Systems HEENT: Sore Throat (from vomiting) Pulmonary: No Dyspnea, No Cough Cardiovascular: No: Chest Pain, Palpitations Gastrointestinal: Vomiting (last episode yesterday, described as green mixed with orange), Constipation, Other (endorses pressure and a feeling of fullness in her abdomen); No: Nausea, Abdominal Pain Genitourinary: No Dysuria, No Frequency, No Hematuria Objective Exam General Appearance: No Apparent Distress, Thin HEENT: Moist Mucous Membranes Respiratory: Lungs Clear, Normal Breath Sounds, No Accessory Muscle Use, No Respiratory Distress Cardiovascular: Regular Rate, Rhythm, No Murmur Gastrointestinal: No distended, No tenderness; other (she had no tenderness to palpation, she claimed palpation to lower abdomen increased feeling of pressure) Neurologic/Psychiatric: Alert, Oriented x3 Assessment/Plan Assessment/Plan Assessment/Plan Constipation Hypokalemia N/V Abdominal pain Leukocytosis Cholelithiasis - most likely just an incidental finding Continue on zofran for nausea PRN. Protonix and mylanta for acid suppression. Tylenol for pain control. She has received two enemas without a significant BM, no BM with Miralax or Dulcolax suppository. Encouraged patient to continue ambulating as much as she can. Need to increse Potassium replacement PO with KCl, monitor with AM labs. WBC count is 15.1 today, increased from 12.5 yesterday. Will discuss with Dr. Winter plan, ??home vs stay with possible obtain a CT scan to rule out obstruction. Supervisory-Addendum Brief Verification & Attestation Participated in pt care: history, MDM, physical Personally performed: exam, history, MDM, supervision of care Care discussed with: Medical Student Procedures: n/a Verification and Attestation of Medical Student E/M Service A medical student performed and documented this service. I then reviewed and verified all information documented by the medical student and made m odifications to such information, when appropriate. I personally performed a physical exam, medical decision making and then discussed any differences between the notes and made revisions as necessary to create one note. Walter Olguin , 04/07/22 , 11:37 HOLGER ARAUJO Apr 07, 2022 07:33 WALTER OLGUIN DO Apr 07, 2022 11:37
[2022-04-07] MEDS: SENNOSIDES 8.6 MG (SENOKOT) TAB PO SCH (07:42)
[2022-04-07] MEDS: DOCUSATE SODIUM 100 MG (COLACE) CAP PO SCH (07:42)
[2022-04-07] MEDS: PANTOPRAZOLE 40 MG (PROTONIX) VIAL IV SCH (07:42)
[2022-04-07 08:00] VITALS: BP 115/83
[2022-04-07 10:51] VITALS: BP 105/70
--- NOTE | 2022-04-07 12:16 | Discharge Summary ---
Diagnosis/Chief Complaint Date of Admission Apr 04, 2022 at 18:24 Date of Discharge 04/07/22 Admission Diagnosis Admission Diagnosis See problem list Discharge Diagnosis See below Problems/Diagnosis: (1) Constipation Assessment & Plan: 04/06: Continue CLD, Miralax when tolerating PO, Surgery consulted and following, appreciate recommendations 04/07: Tolerating PO, will d/c today with golytely and f.u with surgery as outpatient Qualifiers: Qualified Codes: K59.00 - Constipation, unspecified Status: Acute (2) Hypokalemia Assessment & Plan: 04/06: She would like to try PO replacement 04/07: Sending home with PO replacement and f/u as outpatient Status: Acute (3) Nausea and vomiting Assessment & Plan: 04/06: Improving, advance diet as tolerated once having BMs and flatus Qualifiers: Qualified Codes: R11.2 - Nausea with vomiting, unspecified Status: Acute (4) Cholelithiases Assessment & Plan: 04/06: Will continue to monitor but like incidental finding Status: Chronic Discharge Summary-Simple/Stand Consultations Dr Fox: General Surgery Discharge Physical Examination Allergies: Uncoded Allergies: OPIOIDS (Adverse Reaction, Mild, Vomiting, 11/11/20) REPORTS SENSITIVITY TO OPIOIDS-N/V Vitals & I&Os Vital Sign - Last 12Hours Date Time Temp Pulse Resp B/P (MAP) Pulse Ox O2 Delivery O2 Flow Rate FiO2 04/07/22 10:51 37.5 104 18 105/70 (82) 98 04/07/22 09:56 Room Air 04/04/22 21:18 21 Intake and Output 04/07/22 00:00 Intake Total 2290 ml Balance 2290 ml General Appearance: Alert, Oriented X3, No Acute Distress Respiratory: Clear to Auscultation, Normal Air Movement Cardiovascular: Regular Rate, No Murmurs Abdominal: Soft, Other (mild LLQ ttp) Extremities: No Edema, No Tenderness/Swelling Neuro: Normal Speech, Strength at 5/5 X4 Ext, Cranial Nerves 3-12 NL Psych/Mental Status: Mental Status NL, Mood NL Hospital Course See final discharge diagnosis. Discussion & Recommendations 46 yo F with h/o multiple abdominal surgeries that presented with severe constipation with distention and abdominal pain unable to tolerated PO on admission. N/V has resolved and she has been able to tolerate PO CLD and soft diet. She has had some flatus and small BMs Discharge Condition at discharge stable Instructions to patient/family Please see electronic discharge instructions given to patient. Discharge Medications Reviewed and agree with Discharge Medication list on patient's Discharge Instruction sheet SKIP NIETO MD Apr 07, 2022 12:16
[2022-04-07] MEDS ORDERED: LISI5TAB20 PO (12:23)
[2022-04-07] MEDS ORDERED: CLT4KB PO (12:23)
[2022-04-07] MEDS ORDERED: POTA-177 PO (12:23)
[2022-04-07] MEDS ORDERED: DOCU100C37 PO (12:23)
--- NOTE | 2022-04-07 12:23 | Discharge Summary ---
Discharge [facility] Reconcile Patient Problems Problems Reviewed?: Yes Discharge Medications New, Converted or Re-Newed RX: Transmitted to Pharmacy New Medications: Peg/Electrolytes (Golytely Solution) 236-22.74G Soln 4000 ML PO ONCE, #4000 ML Docusate Sodium (Docusate Sodium) 100 Mg Capsule 100 MG PO BID, #30 CAP Changed Medications: Lisinopril (Lisinopril) 5 Mg Tablet 5 MG PO HS, #14 TAB (Medication details modified) Hold until seen by PCP and PO intake improves Potassium Chloride (Potassium Chloride) 10 Meq Tab.er.prt 20 MEQ PO DAILY for 14 Days, #28 EACH (Changed from: 10 MEQ) # 7 FILLED 04-02-2022 Continued Medications: Acetaminophen (Tylenol Extra Strength) 500 Mg Tablet 1000 MG PO Q6H PRN for PAIN-MILD (1-4), TAB Albuterol Sulfate (Proair Hfa) 1 Puff Puff 2 PUFF IH Q4H PRN for SHORTNESS OF BREATH, PUFF Aspirin/Acetaminophen/Caffeine (Excedrin Migraine Caplet) 250 Mg-250 Mg-65 Mg Tablet 2 EACH PO Q6-8HR PRN for Headache, TAB Ephedrine Sulfate (Bronkaid Max) 25 Mg Tablet 25 MG PO Q6H PRN for WHEEZING, TAB Ibuprofen (Ibuprofen) 200 Mg Tablet 400-600 MG PO Q8H PRN for PAIN-MILD (1-4), TAB L.acidoph & Paracasei,B.lactis (Probiotic) 1 Each Capsule 1 EACH PO DAILY, CAP Multivitamin (Multi-Vitamin Daily) 1 Each Tablet 1 EA PO DAILY, TAB Ondansetron (Ondansetron Odt) 4 Mg Tab.rapdis 4 MG PO Q6H PRN for NAUSEA/VOMITING-1ST LINE, TAB Patient Instructions Goal/Follow Up Appt: 1-2 weeks with PCP (needs repeat BMP) Activity & Diet Discharge Diet: Soft Diet Activity as Tolerated: Yes SKIP NIETO MD Apr 07, 2022 12:23
== END 2022-04-07 12:19 | disposition home or self-care (01) ==
LOC: EDUNIT# 15:00 → ER 15:05 → UNDOADMOB 18:24 → 4TH 18:24 → UNDODISOB 04-07 12:19
PROVIDERS: ADMIT Internal Medicine; ATTEND Family Medicine
DX: K59.00 Constipation, unspecified (principal); E87.6 Hypokalemia; K80.20 Calculus of gallbladder without cholecystitis without obstruction; F17.210 Nicotine dependence, cigarettes, uncomplicated; Z79.899 Other long term (current) drug therapy
CPT/HCPCS: 36415; 74019; 76700; 80053; 80306; 81000; 83735; 85007; 85025; 85027; 86141; 94760; 96361; 96366; 96374; 96375; 96376; G0378

== ENCOUNTER 2022-04-08 18:22 | Inpatient (IN) | payer OTHER ==
[~2022-04-08] VITALS: Ht 162 cm; Wt 39.9 kg
[~2022-04-08 18:22] MED LIST changes: +ACET-2267 PO; +ASPI1TAB23 PO; +CLT4KB PO; +DOCU100C37 PO; +IBUP-2473 PO; +POTA-177 PO; +SIME180C65 PO
[2022-04-08] MEDS ORDERED: ONDANSETRON 4 MG/2 ML (SDV) Z0FRAN IVP ONE ×2 (19:30→20:30)
[2022-04-08] MEDS ORDERED: LACTATED RINGERS 1,000 ML IV ONE (19:30)
--- NOTE | 2022-04-08 19:31 | ED GI ---
General Chief Complaint: Abdominal/GI Problems Stated Complaint: VOMITING - DIZZY Nursing Triage Note: ARRIVED VIA AMB TO TRIAGE WITH CONTINUED CONSTIPATION,N/V. STATES SHE WAS RELEASED FROM THE HOSPITAL YESTERDAY. UPSET SHE WAS RELEASED BECAUSE SHE DID NOT HAVE A BM WHILE SHE WAS HERE AND HAD N/V YESTERDAY WHILE BEING HERE. PT STATES WHEN THIS STARTED SHE WEIGHED 100#. Source of Information: Patient Exam Limitations: No Limitations History of Present Illness Date Seen by Provider: Apr 08, 2022 Time Seen by Provider: 19:13 Initial Comments Patient to the ER by private conveyance with chief complaint she is having intractable nausea vomiting despite her Zofran which only lasts about 2 to 3 hours. She has been taking 1 tablet every 6 hours. She is not passing a stool over the past week. She has been in and out for the past 2 weeks with her primary care provider Dr. Vance as well as she has been [facility] and recently discharged from the hospital here locally for what was felt to be an ileus. She has a history of partial small bowel resection when she had her hysterectomy related to adhesions secondary to endometriosis. She is never had a colonoscopy. She has pass stool or gas. She was allowed to go home despite not having a stool for the past week and attempt to continue therapy outpatient. She has not started MiraLAX or GoLytely yet. She did tolerate 3 glasses of water without vomiting prior to coming in. History of methamphetamine use. History of hypokalemia. She had a Gastrografin CT that was still demonstrating contrast in the colon 3 days ago. They were considering getting a cholecystectomy because she had cholelithiasis without cholecystitis seen on ultrasound during her most recent hospital stay. Allergies and Home Medications Allergies Uncoded Allergies: OPIOIDS (Adverse Reaction, Mild, Vomiting, 11/11/20) REPORTS SENSITIVITY TO OPIOIDS-N/V Patient Home Medication List Home Medication List Reviewed: Yes Acetaminophen (Tylenol Extra Strength) 500 Mg Tablet, 1,000 MG PO Q6H PRN for PAIN-MILD (1-4), (Reported) Entered as Reported by: FANTA GARRETT on 04/06/22 1309 Albuterol Sulfate (Proair Hfa) 1 Puff Puff, 2 PUFF IH Q4H PRN for SHORTNESS OF BREATH, (Reported) Entered as Reported by: MUMTAZ NUR on 11/11/20 1104 Aspirin/Acetaminophen/Caffeine (Excedrin Migraine Caplet) 250 Mg-250 Mg-65 Mg Tablet, 2 EACH PO Q6-8HR PRN for Headache, (Reported) Entered as Reported by: FANTA GARRETT on 04/06/22 1309 Docusate Sodium (Docusate Sodium) 100 Mg Capsule, 100 MG PO BID Prescribed by: SKIP NIETO on 04/07/22 1223 Ephedrine Sulfate (Bronkaid Max) 25 Mg Tablet, 25 MG PO Q6H PRN for WHEEZING, (Reported) Entered as Reported by: MUMTAZ NUR on 11/11/20 1104 Ibuprofen (Ibuprofen) 200 Mg Tablet, 400-600 MG PO Q8H PRN for PAIN-MILD (1-4), (Reported) Entered as Reported by: FANTA GARRETT on 04/06/22 1309 L.acidoph & Paracasei,B.lactis (Probiotic) 1 Each Capsule, 1 EACH PO DAILY, (Reported) Entered as Reported by: MUMTAZ NUR on 11/11/20 1104 Lisinopril (Lisinopril) 5 Mg Tablet, 5 MG PO HS Prescribed by: SKIP NIETO on 04/07/22 1223 Multivitamin (Multi-Vitamin Daily) 1 Each Tablet, 1 EA PO DAILY, (Reported) Entered as Reported by: MUMTAZ NUR on 11/11/20 1104 Ondansetron (Ondansetron Odt) 4 Mg Tab.rapdis, 4 MG PO Q6H PRN for NAUSEA/VOMITING-1ST LINE, (Reported) Entered as Reported by: FANTA GARRETT on 04/06/22 1309 Peg/Electrolytes (Golytely Solution) 236-22.74G Soln, 4,000 ML PO ONCE Prescribed by: SKIP NIETO on 04/07/22 1223 Potassium Chloride (Potassium Chloride) 10 Meq Tab.er.prt, 20 MEQ PO DAILY Prescribed by: SKIP NIETO on 04/07/22 1223 Discontinued Medications Docusate Sodium (Dok) 100 Mg Capsule, 100 MG PO BID PRN for CONSTIPATION-1ST LINE Discontinued Reason: No Longer Taking Prescribed by: AVI FULLER on 11/18/20 1030 Hydrocodone Bit/Acetaminophen (HYDROcodone/APAP 7.5/325 TAB) 1 Ea Tablet, 2 EA PO Q6H PRN for Pain-See Instructions Discontinued Reason: No Longer Taking Prescribed by: AVI FULLER on 11/18/20 1030 Ibuprofen (Ibu) 600 Mg Tablet, 600 MG PO Q6H PRN for CRAMPS Discontinued Reason: No Longer Taking Prescribed by: AVI FULLER on 11/18/20 1030 Ondansetron (Ondansetron Odt) 4 Mg Tab.rapdis, 4 MG PO Q6H PRN for NAUSEA/VOMITING-1ST LINE Discontinued Reason: Duplicate Order Prescribed by: Nick Hill on 04/02/22 1555 Potassium Chloride (Potassium Chloride) 10 Meq Capsule.er, 10 MEQ PO DAILY Discontinued Reason: Duplicate Order Prescribed by: Nick Hill on 04/02/22 1555 Simethicone (Mi-Acid) 80 Mg Tab.chew, 40 MG PO TID PRN for INDIGESTION 2ND LINE Discontinued Reason: No Longer Taking Prescribed by: AVI FULLER on 11/18/20 1030 Simethicone (Simethicone) 180 Mg Capsule, 180 MG PO, (Reported) Discontinued Reason: No Longer Taking Entered as Reported by: KATHI CAIN on 04/04/222149 Review of Systems Review of Systems Constitutional: No chills, No fever EENTM: No Blurred Vision, No Double Vision Respiratory: Denies Cough, Denies Shortness of Air Cardiovascular: Denies Chest Pain, Denies Lightheadedness Gastrointestinal: Denies Abdominal Pain; Constipated; Denies Diarrhea; Nausea, Poor Fluid Intake, Vomiting Genitourinary: Denies Burning, Denies Discharge Musculoskeletal: No back pain, No joint pain All Other Systems Reviewed Negative Unless Noted: Yes Past Vtjfpat-Xflrjh-Bgwfgf Hx Patient Social History Tobacco Use?: Yes Smoking Status: Current Everyday Smoker Alcohol Use?: No Seasonal Allergies Seasonal Allergies: Yes Past Medical History Surgeries: Yes (small bowel resection hystertectomy) Bladder Surgery, Tubal Ligation Respiratory: Yes Asthma Currently Using CPAP: No Currently Using BIPAP: No Cardiac: Yes Hypertension Neurological: Yes Headaches /Migraines Female Reproductive Disorders: Menstrual Problems 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 oz. kg; 14.00 BMI Method: General Appearance: WD/WN, mild distress HEENT: PERRL/EOMI, pharynx normal Neck: non-tender, full range of motion, supple Respiratory: lungs clear, normal breath sounds, no respiratory distress, no accessory muscle use Cardiovascular: normal peripheral pulses, regular rate, rhythm Gastrointestinal: normal bowel sounds (All 4 quadrants), non tender, soft, no organomegaly Neurologic/Psychiatric: alert, normal mood/affect, oriented x 3 Skin: normal color, warm/dry Focused Exam Lactate Level 04/08/22 20:15: Lactic Acid Level 1.79 Lactic Acid Level Laboratory Tests Test 04/08/22 20:15 Lactic Acid Level 1.79 MMOL/L (0.50-2.00) Progress/Results/Core Measures Results/Orders Lab Results Laboratory Tests Test 04/08/22 19:00 04/08/22 20:15 Range/Units White Blood Count 18.5 H 4.3-11.0 10^3/uL Red Blood Count 4.58 3.80-5.11 10^6/uL Hemoglobin 15.2 11.5-16.0 g/dL Hematocrit 43 35-52 % Mean Corpuscular Volume 94 80-99 fL Mean Corpuscular Hemoglobin 33 25-34 pg Mean Corpuscular Hemoglobin Concent 35 32-36 g/dL Red Cell Distribution Width 11.6 10.0-14.5 % Platelet Count 439 H 130-400 10^3/uL Mean Platelet Volume 10.4 9.0-12.2 fL Immature Granulocyte % (Auto) 1 % Neutrophils (%) (Auto) 76 H 42-75 % Lymphocytes (%) (Auto) 4 L 12-44 % Monocytes (%) (Auto) 8 0-12 % Eosinophils (%) (Auto) 11 H 0-10 % Basophils (%) (Auto) 0 0-10 % Neutrophils # (Auto) 14.1 H 1.8-7.8 10^3/uL Lymphocytes # (Auto) 0.8 L 1.0-4.0 10^3/uL Monocytes # (Auto) 1.5 H 0.0-1.0 10^3/uL Eosinophils # (Auto) 2.0 H 0.0-0.3 10^3/uL Basophils # (Auto) 0.1 0.0-0.1 10^3/uL Immature Granulocyte # (Auto) 0.1 0.0-0.1 10^3/uL Neutrophils % (Manual) 85 % Lymphocytes % (Manual) 3 % Monocytes % (Manual) 4 % Band Neutrophils 8 % Platelet Estimate SLIGHTLY ELEVATED Clumped Platelets PRESENT Anisocytosis SLIGHT Sodium Level 131 L 135-145 MMOL/L Potassium Level 3.1 L 3.6-5.0 MMOL/L Chloride Level 57 L 98-107 MMOL/L Carbon Dioxide Level 47 *H 21-32 MMOL/L Anion Gap 27 H 5-14 MMOL/L Blood Urea Nitrogen 59 H 7-18 MG/DL Creatinine 2.14 H 0.60-1.30 MG/DL Estimat Glomerular Filtration Rate 28 BUN/Creatinine Ratio 28 Glucose Level 120 H 70-105 MG/DL Calcium Level 11.2 H 8.5-10.1 MG/DL Corrected Calcium 8.5-10.1 MG/DL Magnesium Level 2.7 H 1.6-2.4 MG/DL Total Bilirubin 0.5 0.1-1.0 MG/DL Aspartate Amino Transf (AST/SGOT) 30 5-34 U/L Alanine Aminotransferase (ALT/SGPT) 64 H 0-55 U/L Alkaline Phosphatase 97 40-136 U/L Total Creatine Kinase 89 29-168 U/L C-Reactive Protein High Sensitivity 0.59 H 0.00-0.50 MG/DL Total Protein 8.6 H 6.4-8.2 GM/DL Albumin 4.8 H 3.2-4.5 GM/DL Lipase 70 8-78 U/L Lactic Acid Level 1.79 0.50-2.00 MMOL/L My Orders Orders - BRANDON FLOOD Ed Iv/Invasive Line Start (04/08/22 19:25) Lactated Ringers (Lr 1000 Ml Iv Solution (04/08/22 19:30) Ondansetron Injection (Zofran Injectio (04/08/22 19:30) Comprehensive Metabolic Panel (04/08/22 19:25) Hs C Reactive Protein (04/08/22 19:25) Lipase (04/08/22 19:25) Cbc With Automated Diff (04/08/22 19:25) Abdomen/Kub 1view (04/08/22 19:35) Manual Differential (04/08/22 19:00) Potassium Cl 10meq/50ml Ivpb (Kcl 10 Meq (04/08/22 20:15) Magnesium (04/08/22 20:04) Lactic Acid Analyzer (04/08/22 20:04) Creatine Kinase (04/08/22 20:13) Ondansetron Injection (Zofran Injectio (04/08/22 20:30) Ct Abdomen/Pelvis Wo (04/08/22 20:21) Diatrizoate Meglum/Sodium 37% (Gastrogra (04/08/22 21:30) Medications Given in ED Current Medications Medications Dose Ordered Sig/Rita Route Start Time Stop Time Status Last Admin Dose Admin Diatrizoate Meglum/ Diatrizoate Sod 120 ml ONCE ONCE PO 04/08/22 21:30 04/08/22 21:31 DC 04/08/22 21:40 30 ML Lactated Ringer's 1,000 ml @ 0 mls/hr Q0M ONCE IV 04/08/22 19:30 04/08/22 19:31 DC 04/08/22 19:37 0 MLS/HR Ondansetron HCl 4 mg ONCE ONCE IVP 04/08/22 19:30 04/08/22 19:31 DC 04/08/22 19:37 4 MG Ondansetron HCl 4 mg ONCE ONCE IVP 04/08/22 20:30 04/08/22 20:31 DC 04/08/22 20:46 4 MG Potassium Chloride 50 ml @ 50 mls/hr ONCE ONCE IV 04/08/22 20:15 04/08/22 21:14 DC 04/08/22 20:17 50 MLS/HR Vital Signs/I&O 04/08/22 18:25 Temp 36.8 Pulse 104 Resp 16 B/P (MAP) 117/77 (90) Pulse Ox 97 O2 Delivery Room Air Blood Pressure Mean: 90 Progress Progress Note #1: Time: 19:34 Progress Note We will start with a liter of fluids have to be greater than 20 mL/kg based on her body weight. We will get a KUB and see if the contrast is still present in her bowel gram. We will give her 4 of Zofran and check some basic labs including a lipase. She denied urinary symptoms and declined a UA. Progress Note #2: Time: 20:23 Progress Note The patient's nausea is injected with Zofran. Her x-ray does not reveal anything more than 4 days ago just obstipation of the colon. Her new ELSY and relative metabolic alkalosis are concerning. I ordered a lactate and a CT with oral contrast only. She will likely benefit from observation for gentle IV rehydration. After we get the CT done we will talk to the team. Diagnostic Imaging Diagonstic Imaging: Xray Plain Films/CT/US/NM/MRI: abdomen, pelvis Comments [facility], [place] NAME: RANDAL DOMINIQUE MED REC#: [id number] PT STATUS: REG ER : 1975 PHYSICIAN: BRANDON FLOOD MD ADMIT DATE: 04/08/22/ER Signed Date of Exam:04/08/22 ABDOMEN/KUB 1VIEW HISTORY: Abdominal pain COMPARISON: 04/04/2022 TECHNIQUE: Frontal view of the abdomen. FINDINGS: No distended loops of small bowel are seen. There is hyperdense marked stool in the colon. No acute osseous abnormality is seen. IMPRESSION:. Hyperdense marked stool in the colon, consistent with constipation. Dictated by: Dictated on workstation # [id number] Dict: 04/08/222002 Trans: 04/08/2220[address] [facility] [id number] Interpreted by: ARTHUR ADKINS MD Electronically signed by: ARTHUR ADKINS MD 04/08/222040 Reviewed: Reviewed by Me Diagonstic Imaging: CT Plain Films/CT/US/NM/MRI: abdomen, pelvis Comments [facility] [place] [place] NAME: RANDAL DOMINIQUE Roberto Carlos MED REC#: [id number] PT STATUS: REG ER : 1975 PHYSICIAN: BRANDON FLOOD MD ADMIT DATE: 04/08/22/ER Signed Date of Exam:04/08/22 CT ABDOMEN/PELVIS WO PROCEDURE: CT abdomen and pelvis without contrast. TECHNIQUE: Multiple contiguous axial images were obtained through the abdomen and pelvis without the use of intravenous contrast. Auto Exposure Controls were utilized during the CT exam to meet ALARA standards for radiation dose reduction. INDICATION: Obstipation versus obstruction. COMPARISON: Radiograph from the same day. FINDINGS: Lung bases are clear. The heart is normal in size. The liver is large. There is fatty infiltration on the falciform ligament. The spleen appears normal on this noncontrast exam. The pancreas is unremarkable. The adrenal glands appear normal. The kidneys demonstrate no calculi or hydronephrosis. The duodenum is markedly distended. There is some narrowing underlying the SMA, but there is additional distention of small bowel more distally. There are multiple distended loops of small bowel. There does appear to be a transition point in the mid to lower abdomen (image 93 series 2). There is moderate hyperdense stool in the colon, appears to be due to prior contrast administration. There may be some constipation. There are nondistended loops of small bowel distally. No acute osseous abnormality is seen. IMPRESSION: 1. Multiple distended loops of small bowel consistent with high-grade small bowel obstruction. The transition point appears to be in the mid to low abdomen. 2. Moderate hyperdense stool in the colon, likely from prior contrast administration. Constipation is in the differential as well. Dictated by: Dictated on workstation # [id number] Dict: 04/08/222140 Trans: 04/08/222158 [facility] [id number] Interpreted by: ARTHUR ADKINS MD Electronically signed by: ARTHUR ADKINS MD 04/08/222158 Reviewed: Reviewed by Me Departure Communication (Admissions) Time/Spoke to Admitting Phy: 22:23 Discussed the case with Dr. Nieto who agrees to admit with surgical consult. Time/Spoke to Consulting Phy: 22:[address] SALGADO, general surgery. He agrees to consult on the case. He is okay with ice chips, as needed pain medicine nausea medicine. NG if not tolerating nausea medicine. Impression Primary Impression: ELSY (acute kidney injury) Additional Impressions: Hypokalemia due to excessive gastrointestinal loss of potassium Small bowel obstruction Dehydration Disposition: ADMITTED INPATIENT Condition: Stable Admissions Decision to Admit Reason: Admit from ER (General) Decision to Admit/Date: Apr 08, 2022 Time/Decision to Admit Time: 20:25 Departure-Patient Inst. Referrals: [facility] (PCP/Family) Primary Care Physician BRANDON FLOOD Apr 08, 2022 19:31
[2022-04-08 19:37] LABS: BASOPHILS # (AUTO) 0.1 10^3/uL (0.0-0.1); BASOPHILS % (AUTO) 0 % (0-10); EOSINOPHILS % (AUTO) 11 % (0-10); HEMATOCRIT 43 % (35-52); HEMOGLOBIN 15.2 g/dL (11.5-16.0); LYMPHOCYTES # (AUTO) 0.8 10^3/uL (1.0-4.0); LYMPHOCYTES % (AUTO) 4 % (12-44); MEAN CORPUSCULAR HEMOGLOBIN 33 pg (25-34); MEAN CORPUSCULAR HGB CONC 35 g/dL (32-36); MEAN CORPUSCULAR VOLUME 94 fL (80-99); MEAN PLATELET VOLUME 10.4 fL (9.0-12.2); MONOCYTES # (AUTO) 1.5 10^3/uL (0.0-1.0); MONOCYTES % (AUTO) 8 % (0-12); NEUTROPHILS # (AUTO) 14.1 10^3/uL (1.8-7.8); NEUTROPHILS % (AUTO) 76 % (42-75); PLATELET COUNT 439 10^3/uL (130-400); WHITE BLOOD COUNT 18.5 10^3/uL (4.3-11.0)
[2022-04-08 19:48] LABS: ALANINE AMINOTRANSFERASE 64 U/L (0-55); ALBUMIN 4.8 GM/DL (3.2-4.5); ALKALINE PHOSPHATASE 97 U/L (40-136); BILIRUBIN,TOTAL 0.5 MG/DL (0.1-1.0); BUN/CREATININE RATIO 28; CALCIUM 11.2 MG/DL (8.5-10.1); CHLORIDE 57 MMOL/L (98-107); CREATININE SERUM 2.14 MG/DL (0.60-1.30); GFR ESTIMATED 28; GLUCOSE 120 MG/DL (70-105); LIPASE 70 U/L (8-78); POTASSIUM 3.1 MMOL/L (3.6-5.0); SODIUM 131 MMOL/L (135-145); TOTAL PROTEIN 8.6 GM/DL (6.4-8.2)
[2022-04-08 19:55] LABS: ANISOCYTOSIS SLIGHT; BAND NEUTROPHILS 8 %; LYMPHOCYTES % (MANUAL) 3 %; MONOCYTES % (MANUAL) 4 %; NEUTROPHILS % (MANUAL) 85 %; PLATELET CLUMPS PRESENT; PLATELET ESTIMATE SLIGHTLY ELEVATED
[2022-04-08 20:00] LABS: CARBON DIOXIDE 47 MMOL/L (21-32)
--- NOTE | 2022-04-08 20:11 | Diagnostic Imaging Report ---
HISTORY: Abdominal pain COMPARISON: 04/04/2022 TECHNIQUE: Frontal view of the abdomen. FINDINGS: No distended loops of small bowel are seen. There is hyperdense marked stool in the colon. No acute osseous abnormality is seen. IMPRESSION:. Hyperdense marked stool in the colon, consistent with constipation. Dictated by: Dictated on workstation # [id number]
[2022-04-08] MEDS ORDERED: POTASSIUM CL 10MEQ/50ML IVPB 50 ML IV ONE (20:15)
[2022-04-08] MEDS ORDERED: DIATRIZOATE MEGLUM/SODIUM 37% 120 ML (GASTROGRAFIN) PO ONE (21:30)
--- NOTE | 2022-04-08 21:51 | Diagnostic Imaging Report ---
PROCEDURE: CT abdomen and pelvis without contrast. TECHNIQUE: Multiple contiguous axial images were obtained through the abdomen and pelvis without the use of intravenous contrast. Auto Exposure Controls were utilized during the CT exam to meet ALARA standards for radiation dose reduction. INDICATION: Obstipation versus obstruction. COMPARISON: Radiograph from the same day. FINDINGS: Lung bases are clear. The heart is normal in size. The liver is large. There is fatty infiltration on the falciform ligament. The spleen appears normal on this noncontrast exam. The pancreas is unremarkable. The adrenal glands appear normal. The kidneys demonstrate no calculi or hydronephrosis. The duodenum is markedly distended. There is some narrowing underlying the SMA, but there is additional distention of small bowel more distally. There are multiple distended loops of small bowel. There does appear to be a transition point in the mid to lower abdomen (image 93 series 2). There is moderate hyperdense stool in the colon, appears to be due to prior contrast administration. There may be some constipation. There are nondistended loops of small bowel distally. No acute osseous abnormality is seen. IMPRESSION: 1. Multiple distended loops of small bowel consistent with high-grade small bowel obstruction. The transition point appears to be in the mid to low abdomen. 2. Moderate hyperdense stool in the colon, likely from prior contrast administration. Constipation is in the differential as well. Dictated by: Dictated on workstation # [id number]
[2022-04-08] MEDS ORDERED: LIDOCAINE 2% VISCOUS 15 ML UDC ONE (22:55)
[2022-04-08] MEDS ORDERED: LIDOCAINE 2% VISCOUS 15 ML UDC PO ONE (23:00)
[2022-04-08 23:55] VITALS: BP 114/69
[2022-04-08] MEDS: LACTATED RINGERS 1,000 ML IV SCH (23:58)
[2022-04-08] MEDS: fentaNYL INJ 100 MCG/2 ML AMP IV PRN (23:59)
[2022-04-09] MEDS: PROMETHAZINE INJ 25 MG/ML (PHENERGAN) AMP IVP PRN (00:01)
[2022-04-09 04:01] VITALS: BP 145/77
[2022-04-09 05:32] LABS: BASOPHILS % (AUTO) 0 % (0-10); EOSINOPHILS # (AUTO) 0.1 10^3/uL (0.0-0.3); EOSINOPHILS % (AUTO) 1 % (0-10); HEMATOCRIT 36 % (35-52); HEMOGLOBIN 12.8 g/dL (11.5-16.0); LYMPHOCYTES # (AUTO) 1.1 10^3/uL (1.0-4.0); LYMPHOCYTES % (AUTO) 8 % (12-44); MEAN CORPUSCULAR HEMOGLOBIN 33 pg (25-34); MEAN CORPUSCULAR HGB CONC 35 g/dL (32-36); MEAN CORPUSCULAR VOLUME 93 fL (80-99); MEAN PLATELET VOLUME 10.1 fL (9.0-12.2); MONOCYTES # (AUTO) 1.6 10^3/uL (0.0-1.0); MONOCYTES % (AUTO) 11 % (0-12); NEUTROPHILS % (AUTO) 79 % (42-75); PLATELET COUNT 331 10^3/uL (130-400); WHITE BLOOD COUNT 13.8 10^3/uL (4.3-11.0)
[2022-04-09 05:38] LABS: POTASSIUM 2.8 MMOL/L (3.6-5.0)
[2022-04-09 05:39] LABS: CALCIUM 10.5 MG/DL (8.5-10.1)
[2022-04-09 05:43] LABS: CREATININE SERUM 1.52 MG/DL (0.60-1.30)
[2022-04-09 07:43] VITALS: BP 136/76
--- NOTE | 2022-04-09 09:57 | Consultation - Surgery ---
HOLGER ARAUJO 04/09/22 0957: History of Present Illness History of Present Illness Patient Consulted On(chance/time) 04/09/22 09:52 Date Seen by Provider: Apr 09, 2022 Time Seen by Provider: 09:55 History of Present Illness 46yo female presented to the [facility] ED with chief complaint of continued N/V. Starting roughly two weeks ago the patient began having diffuse abdominal pain whenever she ate or drank anything. She has been to the [place] ED and the [facility] ED twice in the past two weeks with the complaints of N/V and not being able to have a BM. She claims her last BM was "two Sundays ago". She has tried miralax as well as suppositories and enemas, none have resulted in anything more than a small BM. She was released from [facility] on Wednesday (04/07) and returned to the ED last night (04/08) because her N/V continued and her said she looked worse than she did when she went home. After going home she tried eating crackers, grapes, and chicken but after a few hours she would start to feel nausea and then she would vomit dark green emesis mixed with food she had just eaten. The most she was able to keep down was a glass of water, but the water also made her nauseas. She has been taking zofran and it has not helped with the nausea. Her abdominal pain is rated a 3/10 and feels like pressure. Allergies and Home Medications Allergies Uncoded Allergies: OPIOIDS (Adverse Reaction, Mild, Vomiting, 11/11/20) REPORTS SENSITIVITY TO OPIOIDS-N/V Patient Home Medication List Acetaminophen (Tylenol Extra Strength) 500 Mg Tablet, 1,000 MG PO Q6H PRN for PAIN-MILD (1-4), (Reported) Entered as Reported by: FANTA GARRETT on 04/06/22 1309 Albuterol Sulfate (Proair Hfa) 1 Puff Puff, 2 PUFF IH Q4H PRN for SHORTNESS OF BREATH, (Reported) Entered as Reported by: MUMTAZ NUR on 11/11/20 1104 Aspirin/Acetaminophen/Caffeine (Excedrin Migraine Caplet) 250 Mg-250 Mg-65 Mg Tablet, 2 EACH PO Q6-8HR PRN for Headache, (Reported) Entered as Reported by: FANTA GARRETT on 04/06/22 1309 Docusate Sodium (Docusate Sodium) 100 Mg Capsule, 100 MG PO BID Prescribed by: SKIP NIETO on 04/07/22 1223 Ephedrine Sulfate (Bronkaid Max) 25 Mg Tablet, 25 MG PO Q6H PRN for WHEEZING, (Reported) Entered as Reported by: MUMTAZ NUR on 11/11/20 1104 Ibuprofen (Ibuprofen) 200 Mg Tablet, 400-600 MG PO Q8H PRN for PAIN-MILD (1-4), (Reported) Entered as Reported by: FANTA GARRETT on 04/06/22 1309 L.acidoph & Paracasei,B.lactis (Probiotic) 1 Each Capsule, 1 EACH PO DAILY, (Reported) Entered as Reported by: MUMTAZ NUR on 11/11/20 1104 Lisinopril (Lisinopril) 5 Mg Tablet, 5 MG PO HS Prescribed by: SKIP NIETO on 04/07/22 1223 Multivitamin (Multi-Vitamin Daily) 1 Each Tablet, 1 EA PO DAILY, (Reported) Entered as Reported by: MUMTAZ NUR on 11/11/20 1104 Ondansetron (Ondansetron Odt) 4 Mg Tab.rapdis, 4 MG PO Q6H PRN for NAUSEA/VOMIT ING-1ST LINE, (Reported) Entered as Reported by: FANTA GARRETT on 04/06/22 1309 Peg/Electrolytes (Golytely Solution) 236-22.74G Soln, 4,000 ML PO ONCE Prescribed by: SKIP NIETO on 04/07/22 1223 Potassium Chloride (Potassium Chloride) 10 Meq Tab.er.prt, 20 MEQ PO DAILY Prescribed by: SKIP NIETO on 04/07/22 1223 Discontinued Medications Docusate Sodium (Dok) 100 Mg Capsule, 100 MG PO BID PRN for CONSTIPATION-1ST LINE Discontinued Reason: No Longer Taking Prescribed by: AVI FULLER on 11/18/20 1030 Hydrocodone Bit/Acetaminophen (HYDROcodone/APAP 7.5/325 TAB) 1 Ea Tablet, 2 EA PO Q6H PRN for Pain-See Instructions Discontinued Reason: No Longer Taking Prescribed by: AVI FULLER on 11/18/20 1030 Ibuprofen (Ibu) 600 Mg Tablet, 600 MG PO Q6H PRN for CRAMPS Discontinued Reason: No Longer Taking Prescribed by: AVI FULLER on 11/18/20 1030 Ondansetron (Ondansetron Odt) 4 Mg Tab.rapdis, 4 MG PO Q6H PRN for NAUSEA/VOM ITING-1ST LINE Discontinued Reason: Duplicate Order Prescribed by: Nick Hill on 04/02/22 1555 Potassium Chloride (Potassium Chloride) 10 Meq Capsule.er, 10 MEQ PO DAILY Discontinued Reason: Duplicate Order Prescribed by: Nick Hill on 04/02/22 1555 Simethicone (Mi-Acid) 80 Mg Tab.chew, 40 MG PO TID PRN for INDIGESTION 2ND LINE Discontinued Reason: No Longer Taking Prescribed by: AVI FULLER on 11/18/20 1030 Simethicone (Simethicone) 180 Mg Capsule, 180 MG PO, (Reported) Discontinued Reason: No Longer Taking Entered as Reported by: KATHI CAIN on 04/04/220 Past Harddrk-Vjuquy-Vsvmmu Hx Patient Social History Smoking Status: Current Everyday Smoker Type Used: Cigarettes Recent Hopitalizations: No Alcohol Use?: No Have you traveled recently?: No Immunizations Up To Date Date of Influenza Vaccine: Jul 12, 2019 Seasonal Allergies Seasonal Allergies: Yes Surgeries History of Surgeries: Yes (small bowel resection, hernia in groin repaired when she was 2yo) Surgeries: Bladder Surgery, Hysterectomy, Tubal Ligation Respiratory History of Respiratory Disorde: Yes Respiratory Disorders: Asthma Cardiovascular History of Cardiac Disorders: Yes Cardiac Disorders: Hypertension Neurological History of Neurological Disord: Yes Neurological Disorders: Headaches /Migraines Reproductive System Female Reproductive Disorders: Menstrual Problems [employer] History: Tubal Ligation Genitourinary History of Genitourinary Disor: No Gastrointestinal History of Gastrointestinal Di: Yes Gastrointestinal Disorders: Abdominal Hernia (said she had hernia in groin repaired at 2yo), Irritable Bowel Musculoskeletal History of Musculoskeletal Dis: Yes Musculoskeletal Disorders: Scoliosis Endocrine History of Endocrine Disorders: No HEENT History of HEENT Disorders: Yes (GLASSES/CONTACTS, DIMINISHED HEARING RIGHT EAR) Hearing Impairment: Hard of Hearing Cancer History of Cancer: No Psychosocial History of Psychiatric Problem: Yes Behavioral Health Disorders: Anxiety Integumentary History of Skin or Integumenta: No Blood Transfusions History of Blood Disorders: Yes (ANEMIA) Family Medical History Significant Family History: Heart Disease (mom, not sure what exactly), GI Disease (mom had diverticulitis, 2 years ago from ruptured colon), Hypertension (mom, dad), Other Conditions/Hx (maternal grandma had colorectal cancer diagnosed at 84) Review of Systems-General Constitutional: No chills, No diaphoresis, No fever; weight loss (claims she has lost 17lbs in last 2 weeks) EENTM: double vision (associated with lightheadedness), throat pain (from vomiting) Respiratory: No cough, No short of breath Cardiovascular: No chest pain; palpitations, syncope (upon standing) Gastrointestinal: abdominal pain, constipation; No dysphagia, No hematemesis, No heartburn; nausea, vomiting Genitourinary: No dysuria, No hematuria, No incontinence Musculoskeletal: back pain (when she vomits); No joint pain, No muscle pain Skin: No change in color; dryness; No rash Psychiatric/Neurological: Anxiety; Denies Depressed; Headache Physical Exam-General Problems Physical Exam Vital Signs Vital Signs - First Documented 04/08/22 18:25 Temp 36.8 Pulse 104 Resp 16 B/P (MAP) 117/77 (90) Pulse Ox 97 O2 Delivery Room Air Capillary Refill : Less Than 3 Seconds General Appearance: mild distress, thin HEENT: PERRL/EOMI; No scleral icterus (R), No scleral icterus (L); other Neck: non-tender, supple Respiratory: lungs clear, normal breath sounds, no respiratory distress, no accessory muscle use Cardiovascular: regular rate, rhythm, no murmur Peripheral Pulses: 2+ Dorsalis Pedis (R), 2+ Left Dors-Pedis (L), 2+ Radial Pulses (R), 2+ Radial Pulses (L) Gastrointestinal: soft; No guarding; tenderness (diffusely below the umbilicus, she says more of a feeling of discomfort and fullness) Back: no CVA tenderness, no vertebral tenderness Extremities: non-tender, no pedal edema, no calf tenderness Neurologic/Psychiatric: alert, oriented x 3 Skin: normal color, warm/dry Lymphatic: no adenopathy (cervical) Data Review Labs Laboratory Tests 04/08/22 19:00: White Blood Count 18.5H, Red Blood Count 4.58, Hemoglobin 15.2, Hematocrit 43, Mean Corpuscular Volume 94, Mean Corpuscular Hemoglobin 33, Mean Corpuscular Hemoglobin Concent 35, Red Cell Distribution Width 11.6, Platelet Count 439H, Mean Platelet Volume 10.4, Immature Granulocyte % (Auto) 1, Neutrophils (%) (Auto) 76H, Lymphocytes (%) (Auto) 4L, Monocytes (%) (Auto) 8, Eosinophils (%) (Auto) 11H, Basophils (%) (Auto) 0, Neutrophils # (Auto) 14.1H, Lymphocytes # (Auto) 0.8L, Monocytes # (Auto) 1.5H, Eosinophils # (Auto) 2.0H, Basophils # (Auto) 0.1, Immature Granulocyte # (Auto) 0.1, Neutrophils % (Manual) 85, Lymphocytes % (Manual) 3, Monocytes % (Manual) 4, Band Neutrophils 8, Platelet Estimate SLIGHTLY ELEVATED, Clumped Platelets PRESENT, Anisocytosis SLIGHT, Sodium Level 131L, Potassium Level 3.1L, Chloride Level 57L, Carbon Dioxide Level 47*H, Anion Gap 27H, Blood Urea Nitrogen 59H, Creatinine 2.14H, Estimat Glomerular Filtration Rate 28, BUN/Creatinine Ratio 28, Glucose Level 120H, Calcium Level 11.2H, Corrected Calcium , Magnesium Level 2.7H, Total Bilirubin 0.5, Aspartate Amino Transf (AST/SGOT) 30, Alanine Aminotransferase (ALT/SGPT) 64H, Alkaline Phosphatase 97, Total Creatine Kinase 89, C-Reactive Protein High Sensitivity 0.59H, Total Protein 8.6H, Albumin 4.8H, Lipase 70 04/08/22 20:15: Lactic Acid Level 1.79 04/09/22 05:16: White Blood Count 13.8H, Red Blood Count 3.88, Hemoglobin 12.8, Hematocrit 36, Mean Corpuscular Volume 93, Mean Corpuscular Hemoglobin 33, Mean Corpuscular Hemoglobin Concent 35, Red Cell Distribution Width 11.3, Platelet Count 331, Mean Platelet Volume 10.1, Immature Granulocyte % (Auto) 0, Neutrophils (%) (Auto) 79H, Lymphocytes (%) (Auto) 8L, Monocytes (%) (Auto) 11, Eosinophils (%) (Auto) 1, Basophils (%) (Auto) 0, Neutrophils # (Auto) 11.0H, Lymphocytes # (Auto) 1.1, Monocytes # (Auto) 1.6H, Eosinophils # (Auto) 0.1, Basophils # (Auto) 0.0, Immature Granulocyte # (Auto) 0.1, Sodium Level 134L, Potassium Level 2.8L, Chloride Level 65L, Carbon Dioxide Level 46*H, Anion Gap 23H, Blood Urea Nitrogen 49H, Creatinine 1.52H, Estimat Glomerular Filtration Rate 42, BUN/Creatinine Ratio 32, Glucose Level 108H, Calcium Level 10.5H Assessment/Plan Assessment/Plan Assessment/Plan Small bowel obstruction vs. ileus N/V Leukocytosis Hypokalemia Hypochloremia Hypercapnia Patient would benefit from an NG tube. She claimed they placed one in the ED last night and she could not tolerate it due to pain and discomfort. She said it fell out when she was coughing. Zofran and phenergan for nausea. Replace potassium with IV KCl. Continue IV fluids. Keep patient NPO. KELESY OLGUIN DO 04/09/22 1343: History of Present Illness History of Present Illness Time Seen by Provider: 11:20 History of Present Illness Surgery asked to consult regarding Small bowel obstruction. Pt is well known to me; I did previous surgery and just saw her in hospital 2 days ago. She states she went home and continued to vomit; "could not keep anything down". She got an NGT last night which combined with vomiting, she states has made her feel a little better and stomach has gone down a little. She refuses to have NGT replaced; "it burned and made me gag constantly". Her is at bedside and is worried about her weight loss and not getting enough nutrition. Allergies and Home Medications Allergies Uncoded Allergies: OPIOIDS (Adverse Reaction, Mild, Vomiting, 11/11/20) REPORTS SENSITIVITY TO OPIOIDS-N/V Patient Home Medication List Home Medication List Reviewed: Yes Acetaminophen (Tylenol Extra Strength) 500 Mg Tablet, 1,000 MG PO Q6H PRN for PAIN-MILD (1-4), (Reported) Entered as Reported by: FANTA GARRETT on 04/06/22 1309 Albuterol Sulfate (Proair Hfa) 1 Puff Puff, 2 PUFF IH Q4H PRN for SHORTNESS OF BREATH, (Reported) Entered as Reported by: MUMTAZ NUR on 11/11/20 1104 Aspirin/Acetaminophen/Caffeine (Excedrin Migraine Caplet) 250 Mg-250 Mg-65 Mg Tablet, 2 EACH PO Q6-8HR PRN for Headache, (Reported) Entered as Reported by: FANTA GARRETT on 04/06/22 1309 Docusate Sodium (Docusate Sodium) 100 Mg Capsule, 100 MG PO BID Prescribed by: SKIP NIETO on 04/07/22 1223 Ephedrine Sulfate (Bronkaid Max) 25 Mg Tablet, 25 MG PO Q6H PRN for WHEEZING, (Reported) Entered as Reported by: MUMTAZ NUR on 11/11/20 1104 Ibuprofen (Ibuprofen) 200 Mg Tablet, 400-600 MG PO Q8H PRN for PAIN-MILD (1-4), (Reported) Entered as Reported by: FANTA GARRETT on 04/06/22 1309 L.acidoph & Paracasei,B.lactis (Probiotic) 1 Each Capsule, 1 EACH PO DAILY, (Reported) Entered as Reported by: MUMTAZ NUR on 11/11/20 1104 Lisinopril (Lisinopril) 5 Mg Tablet, 5 MG PO HS Prescribed by: SKIP NIETO on 04/07/22 1223 Multivitamin (Multi-Vitamin Daily) 1 Each Tablet, 1 EA PO DAILY, (Reported) Entered as Reported by: MUMTAZ NUR on 11/11/20 1104 Ondansetron (Ondansetron Odt) 4 Mg Tab.rapdis, 4 MG PO Q6H PRN for NAUSEA/VOMITING-1ST LINE, (Reported) Entered as Reported by: FANTA GARRETT on 04/06/22 1309 Peg/Electrolytes (Golytely Solution) 236-22.74G Soln, 4,000 ML PO ONCE Prescribed by: SKIP NIETO on 04/07/22 1223 Potassium Chloride (Potassium Chloride) 10 Meq Tab.er.prt, 20 MEQ PO DAILY Prescribed by: SKIP NIETO on 04/07/22 1223 Discontinued Medications Docusate Sodium (Dok) 100 Mg Capsule, 100 MG PO BID PRN for CONSTIPATION-1ST LI NE Discontinued Reason: No Longer Taking Prescribed by: AVI FULLER on 11/18/20 1030 Hydrocodone Bit/Acetaminophen (HYDROcodone/APAP 7.5/325 TAB) 1 Ea Tablet, 2 EA PO Q6H PRN for Pain-See Instructions Discontinued Reason: No Longer Taking Prescribed by: AVI FULLER on 11/18/20 1030 Ibuprofen (Ibu) 600 Mg Tablet, 600 MG PO Q6H PRN for CRAMPS Discontinued Reason: No Longer Taking Prescribed by: AVI FULLER on 11/18/20 1030 Ondansetron (Ondansetron Odt) 4 Mg Tab.rapdis, 4 MG PO Q6H PRN for NAUSEA/VOMITING-1ST LINE Discontinued Reason: Duplicate Order Prescribed by: Nick Hill on 04/02/22 1555 Potassium Chloride (Potassium Chloride) 10 Meq Capsule.er, 10 MEQ PO DAILY Discontinued Reason: Duplicate Order Prescribed by: Nick Hill on 04/02/22 1555 Simethicone (Mi-Acid) 80 Mg Tab.chew, 40 MG PO TID PRN for INDIGESTION 2ND LINE Discontinued Reason: No Longer Taking Prescribed by: AVI FULLER on 11/18/20 1030 Simethicone (Simethicone) 180 Mg Capsule, 180 MG PO, (Reported) Discontinued Reason: No Longer Taking Entered as Reported by: KATHI ACIN on 04/04/222149 Past Zaamuxa-Xzpkdi-Haafln Hx Patient Social History Smoking Status: Current Everyday Smoker Surgeries History of Surgeries: Yes (small bowel resection, hernia in groin repaired when she was 2yo) Surgeries: Bladder Surgery, Hysterectomy, Tubal Ligation Respiratory History of Respiratory Disorde: Yes Respiratory Disorders: Asthma Cardiovascular History of Cardiac Disorders: Yes Cardiac Disorders: High Cholesterol, Hypertension Neurological History of Neurological Disord: Yes Neurological Disorders: Headaches /Migraines Genitourinary History of Genitourinary Disor: No Gastrointestinal History of Gastrointestinal Di: Yes Gastrointestinal Disorders: Abdominal Hernia (said she had hernia in groin repaired at 2yo), Obstructive Bowel, Irritable Bowel Musculoskeletal History of Musculoskeletal Dis: Yes Musculoskeletal Disorders: Scoliosis Endocrine History of Endocrine Disorders: No HEENT History of HEENT Disorders: No Loss of Vision: Denies Hearing Impairment: Denies Cancer History of Cancer: No Psychosocial History of Psychiatric Problem: Yes Behavioral Health Disorders: Anxiety Integumentary History of Skin or Integumenta: No Family Medical History Significant Family History: Heart Disease (mom, not sure what exactly), GI Disease (mom had diverticulitis, 2 years ago from ruptured colon), Hypertension (mom, dad), Other Conditions/Hx (maternal grandma had colorectal cancer diagnosed at 84) Review of Systems-General Constitutional: No chills, No diaphoresis, No fever; weakness, weight loss (claims she has lost 17lbs in last 2 weeks) EENTM: double vision (associated with lightheadedness), throat pain (from vomiting) Respiratory: No cough, No short of breath Cardiovascular: No chest pain; palpitations, syncope (upon standing) Gastrointestinal: abdominal pain, constipation; No dysphagia, No hematemesis, No heartburn; nausea, vomiting Genitourinary: No dysuria, No hematuria, No incontinence Musculoskeletal: back pain (when she vomits); No joint pain Skin: No change in color; dryness; No rash Psychiatric/Neurological: Anxiety; Denies Depressed; Headache Physical Exam-General Problems Physical Exam General Appearance: mild distress, thin Eyes: Bilateral Eye PERRL, Bilateral Eye EOMI HEENT: pharynx normal; No scleral icterus (R), No scleral icterus (L) Neck: non-tender, supple Respiratory: lungs clear, normal breath sounds, no respiratory distress, no accessory muscle use Cardiovascular: regular rate, rhythm, no murmur Gastrointestinal: soft; No guarding; tenderness (diffusely below the umbilicus, she says more of a feeling of discomfort and fullness) Back: no CVA tenderness, no vertebral tenderness Extremities: non-tender, no pedal edema, no calf tenderness Neurologic/Psychiatric: alert, oriented x 3 Skin: normal color, warm/dry Lymphatic: no adenopathy (neck, axilla or groin) Data Review Radiology Date of Exam:04/08/22 CT ABDOMEN/PELVIS WO PROCEDURE: CT abdomen and pelvis without contrast. TECHNIQUE: Multiple contiguous axial images were obtained through the abdomen and pelvis without the use of intravenous contrast. Auto Exposure Controls were utilized during the CT exam to meet ALARA standards for radiation dose reduction. INDICATION: Obstipation versus obstruction. COMPARISON: Radiograph from the same day. FINDINGS: Lung bases are clear. The heart is normal in size. The liver is large. There is fatty infiltration on the falciform ligament. The spleen appears normal on this noncontrast exam. The pancreas is unremarkable. The adrenal glands appear normal. The kidneys demonstrate no calculi or hydronephrosis. The duodenum is markedly distended. There is some narrowing underlying the SMA, but there is additional distention of small bowel more distally. There are multiple distended loops of small bowel. There does appear to be a transition point in the mid to lower abdomen (image 93 series 2). There is moderate hyperdense stool in the colon, appears to be due to prior contrast administration. There may be some constipation. There are nondistended loops of small bowel distally. No acute osseous abnormality is seen. IMPRESSION: 1. Multiple distended loops of small bowel consistent with high-grade small bowel obstruction. The transition point appears to be in the mid to low abdomen. 2. Moderate hyperdense stool in the colon, likely from prior contrast administration. Constipation is in the differential as well. Dictated by: Dictated on workstation # [id number] Dict: 04/08/222140 Trans: 04/08/222158 CVB [id number] Interpreted by: ARTHUR ADKINS MD Electronically signed by: ARTHUR ADKINS MD 04/08/222158 Assessment/Plan Assessment/Plan Assessment/Plan Small bowel obstruction vs. ileus N/V Leukocytosis Hypokalemia Hypochloremia Hypercapnia Patient would benefit from an NG tube. She claimed they placed one in the ED last night and she could not tolerate it due to pain and discomfort. She said it fell out when she was coughing. Zofran and phenergan for nausea. Replace potassium with IV KCl. Continue IV fluids. Keep patient NPO. I reviewed the films with Radiologist and discussed case with Dr. Nieto. I had long discussion with pt and ; unfortunately, there is not a good choice. 1) wait and see if it resolves on own (hasn't in 10 days) 2) surgery; which will cause an ileus and increase risk of adhesions and small bowel obstruction in the future. I think at least rehydrating and trying to fix electrolytes for a day is the best course of action. She may wind up going to surgery tomorrow. Supervisory-Addendum Brief Verification & Attestation Participated in pt care: history, MDM, physical Personally performed: exam, history, MDM, supervision of care Care discussed with: Medical Student Procedures: n/a Verification and Attestation of Medical Student E/M Service A medical student performed and documented this service. I then reviewed and verified all information documented by the medical student and made modific ations to such information, when appropriate. I personally performed a physical exam, medical decision making and then discussed any differences between the notes and made revisions as necessary to create one note. Kelsey Olguin , 04/09/22 , 13:51 HOLGER ARAUJO Apr 09, 2022 09:57 KELSEY OLGUIN DO Apr 09, 2022 13:43
[2022-04-09] MEDS: KCL 20 MEQ TAB (K-DUR) PO SCH ×2 (10:02→10:03)
--- NOTE | 2022-04-09 10:10 | Diagnostic Imaging Report ---
INDICATION: Small bowel obstruction. COMPARISON: 04/08/2022 FINDINGS: Frontal supine and upright radiograph views of the abdomen were obtained. Multiple scattered air-fluid levels noted on the upright exam. Multiple abnormally dilated loops of small bowel are located centrally over the lower abdomen and pelvis on the supine portion exam. Overall, appearance is stable compared to one day prior. Moderate air, stool, and contrast remain scattered throughout the colon. There is no large collection of free intraperitoneal air. Included portions lung bases are clear. IMPRESSION: 1. Persistent small bowel dilatation of multiple air-fluid levels concerning for obstruction. Dictated by: Dictated on workstation # [id number]
[2022-04-09 11:08] VITALS: BP 120/73
--- NOTE | 2022-04-09 12:10 | History & Physical ---
HPI History of Present Illness: Patient is a 46 yo F admitted for ELSY and small bowel obstruction. She presented to the ER yesterday for intractable nausea and vomiting despite treatment with ondansetron. She has not passed a stool for nearly 2 weeks. Recently discharged with possible ileus for outpatient management. History of small bowel resection and hysterectomy related to adhesions secondary to endometriosis. She has never had a colonoscopy. History of hypokalemia. Previously considered for cholecystectomy due to cholelithiasis without cholecystitis. Indicates nausea and vomiting (old food and bile), intermittent headaches. Denies SOB, chest pain, chills, and lightheadedness. Source: patient, RN/MD, old records Exam Limitations: no limitations Date seen by provider: Apr 09, 2022 Time Seen by Provider: 08:50 Attending Physician [place] PCP Admitting Physician: Helen Winter MD Attending Physician: Helen Winter MD Consult Date of Admission Apr 08, 2022 at 22:27 Home Medications Home Medications Reviewed patient Home Medication Reconciliation performed by pharmacy medication reconciliations pbx technician and/or nursing. Patients Allergies have been reviewed. Allergies Uncoded Allergies: OPIOIDS (Adverse Reaction, Mild, Vomiting, 11/11/20) REPORTS SENSITIVITY TO OPIOIDS-N/V POF-Cztnyh-Rrzmjz Hx Patient Social History Marrital Status: Smoking Status: Current Everyday Smoker Recent Hopitalizations: Yes Alcohol Use?: No Have you traveled recently?: No Immunizations Up To Date Influenza Vaccine Up-to-Date: No; Not Current Past Medical History Past med hx: Hypertension Migraines Asthma IBS Menstrual problems Scoliosis Anxiety Past surg hx Hysterectomy related to adhesions secondary to endometriosis Bladder Small bowel resection Tubal ligation Family Medical History Significant Family History: Heart Disease (mom, not sure what exactly), GI Disease (mom had diverticulitis, 2 years ago from ruptured colon), Hypertension (mom, dad), Other Conditions/Hx (maternal grandma had colorectal cancer diagnosed at 84) Review of Systems ([facility]) Constitutional: see HPI; No chills, No fever EENTM: see HPI, no symptoms reported Respiratory: no symptoms reported, see HPI; No cough, No short of breath Cardiovascular: no symptoms reported; No chest pain, No edema Gastrointestinal: constipation, nausea, vomiting Genitourinary: no symptoms reported Musculoskeletal: no symptoms reported Skin: no symptoms reported Psychiatric/Neurological: No Symptoms Reported, Headache All Other Systems Reviewed Negative Unless Noted: Yes Reviewed Test Results Reviewed Test Results Lab WBC - 13.8 Neut% - 79 Na - 134 K - 2.8 Cl - 65 CO2 - 46 Anion gap - 23 BUN - 49 CR - 1.52 eGFR - 42 BUN/CR ratio - 32 glucose - 108 calcium - 10.5 Mg - 2.7 ALT - 64 lactic acid - 1.79 hsCRP - 0.59 total prot - 8.6 albumin - 4.8 Radiology Date of Exam:04/08/22 CT ABDOMEN/PELVIS WO PROCEDURE: CT abdomen and pelvis without contrast. TECHNIQUE: Multiple contiguous axial images were obtained through the abdomen and pelvis without the use of intravenous contrast. Auto Exposure Controls were utilized during the CT exam to meet ALARA standards for radiation dose reduction. INDICATION: Obstipation versus obstruction. COMPARISON: Radiograph from the same day. FINDINGS: Lung bases are clear. The heart is normal in size. The liver is large. There is fatty infiltration on the falciform ligament. The spleen appears normal on this noncontrast exam. The pancreas is unremarkable. The adrenal glands appear normal. The kidneys demonstrate no calculi or hydronephrosis. The duodenum is markedly distended. There is some narrowing underlying the SMA, but there is additional distention of small bowel more distally. There are multiple distended loops of small bowel. There does appear to be a transition point in the mid to lower abdomen (image 93 series 2). There is moderate hyperdense stool in the colon, appears to be due to prior contrast administration. There may be some constipation. There are nondistended loops of small bowel distally. No acute osseous abnormality is seen. IMPRESSION: 1. Multiple distended loops of small bowel consistent with high-grade small bowel obstruction. The transition point appears to be in the mid to low abdomen. 2. Moderate hyperdense stool in the colon, likely from prior contrast administration. Constipation is in the differential as well. Dictated by: Dictated on workstation # [id number] Dict: 04/08/222140 Trans: 04/08/222158 CV [id number] Interpreted by: ARTHUR ADKINS MD Electronically signed by: ARTHUR ADKINS MD 04/08/222158 Date of Exam:04/08/22 ABDOMEN/KUB 1VIEW HISTORY: Abdominal pain COMPARISON: 04/04/2022 TECHNIQUE: Frontal view of the abdomen. FINDINGS: No distended loops of small bowel are seen. There is hyperdense marked stool in the colon. No acute osseous abnormality is seen. IMPRESSION:. Hyperdense marked stool in the colon, consistent with constipation. Dictated by: Dictated on workstation # [id number] Dict: 04/08/222002 Trans: 04/08/222040 CV [id number] Interpreted by: ARTHUR ADKINS MD Electronically signed by: ARTHUR ADKINS MD 04/08/222040 Physical Exam-([facility]) Physical Exam Vital Signs VS - Last 72 Hours, by Label 04/08/22 04/08/22 04/08/22 04/09/22 18:25 23:45 23:55 00:50 Temp 36.8 37.2 Pulse 104 107 98 Resp 16 20 16 B/P (MAP) 117/77 (90) 114/69 (84) 120/74 Pulse Ox 97 97 97 O2 Delivery Room Air Room Air Room Air Room Air 04/09/22 04/09/22 04/09/22 04:01 07:43 11:08 Temp 37.7 37.5 37.2 Pulse 87 84 95 Resp 20 19 18 B/P (MAP) 145/77 (99) 136/76 (96) 120/73 (89) Pulse Ox 95 91 93 O2 Delivery Room Air Room Air Room Air Capillary Refill : Less Than 3 Seconds Temperature (Fahrenheit): 99.0 General Appearance: WD/WN, no apparent distress, mild distress Neck: non-tender, supple, normal inspection Respiratory: chest non-tender, lungs clear, normal breath sounds, no respiratory distress, no accessory muscle use Cardiovascular: normal peripheral pulses, regular rate, rhythm, no edema, no gallop, no JVD, no murmur Peripheral Pulses: 3+ Radial Pulses (R), 3+ Radial Pulses (L) Gastrointestinal: non tender, no pulsatile mass, abnormal bowel sounds (Diminished bowel sounds), distended Extremities: normal inspection, no pedal edema, normal capillary refill Neurologic/Psychiatric: no motor/sensory deficits, alert, normal mood/affect, oriented x 3 Skin: normal color, warm/dry Assessment/Plan Assessment/Plan Admission Dx ELSY and small bowel obstruction Admission Status: Inpatient Order (span 2 midnights) Reason for Inpatient Admission: Inpatient order is necessary to monitor patient electrolyte abnormalities and kidney function. Diagnostic imaging of the abdomen found high grade small bowel obstruction with a transition zone. Assessment & Plan ELSY - rehydration therapy with LR and sodium chloride Hypokalemia - potassium chloride IV, picc line to be placed Small bowel obstruction - to be followed by surgery. Operation is not recommended at this time. Nausea and vomiting - promethazine and ondansetron Asthma - continue medical management HTN - continue medical management DONAVAN WHARTON Apr 09, 2022 12:10
[2022-04-09] MEDS: POTASSIUM CL 10MEQ/50ML IVPB 50 ML IV SCH ×6 (13:22→23:51)
[2022-04-09] MEDS: NS IV 500 ML 500 ML IV PRN (13:22)
[2022-04-09] MEDS: ONDANSETRON 4 MG/2 ML (SDV) Z0FRAN IV PRN ×2 (13:37→18:49)
[2022-04-09 15:53] VITALS: BP 131/73
[2022-04-09] MEDS: THIAMINE INJECTION 100 MG, FOLIC ACID INJECTION 1 MG, VITAMIN MULTI INJECTION 10 ML, MA... IV SCH ×5 (16:28)
[2022-04-09] MEDS: LACTATED RINGERS 1,000 ML IV SCH (17:29)
[2022-04-09 19:53] VITALS: BP 128/77
[2022-04-09 22:46] LABS: ALBUMIN 3.9 GM/DL (3.2-4.5); BILIRUBIN,TOTAL 0.3 MG/DL (0.1-1.0); CALCIUM 10.2 MG/DL (8.5-10.1); CREATININE SERUM 1.25 MG/DL (0.60-1.30); POTASSIUM 3.3 MMOL/L (3.6-5.0); TOTAL PROTEIN 6.8 GM/DL (6.4-8.2)
[2022-04-09 23:54] VITALS: BP 144/91
[2022-04-10] VITALS (10 sets, daily range): BP systolic 109–145; BP diastolic 70–92
[2022-04-10] MEDS: POTASSIUM CL 10MEQ/50ML IVPB 50 ML IV SCH ×8 (00:44→13:00)
[2022-04-10] MEDS: LACTATED RINGERS 1,000 ML IV SCH ×4 (00:47→21:43)
[2022-04-10] MEDS: ONDANSETRON 4 MG/2 ML (SDV) Z0FRAN IV PRN (00:50)
[2022-04-10 06:57] LABS: BASOPHILS % (AUTO) 0 % (0-10); EOSINOPHILS # (AUTO) 0.1 10^3/uL (0.0-0.3); EOSINOPHILS % (AUTO) 1 % (0-10); HEMATOCRIT 37 % (35-52); HEMOGLOBIN 12.9 g/dL (11.5-16.0); LYMPHOCYTES # (AUTO) 1.3 10^3/uL (1.0-4.0); LYMPHOCYTES % (AUTO) 11 % (12-44); MEAN CORPUSCULAR HEMOGLOBIN 33 pg (25-34); MEAN CORPUSCULAR HGB CONC 35 g/dL (32-36); MEAN CORPUSCULAR VOLUME 96 fL (80-99); MEAN PLATELET VOLUME 10.1 fL (9.0-12.2); MONOCYTES # (AUTO) 1.4 10^3/uL (0.0-1.0); MONOCYTES % (AUTO) 12 % (0-12); NEUTROPHILS # (AUTO) 9.3 10^3/uL (1.8-7.8); NEUTROPHILS % (AUTO) 76 % (42-75); PLATELET COUNT 321 10^3/uL (130-400); WHITE BLOOD COUNT 12.2 10^3/uL (4.3-11.0)
[2022-04-10 07:15] LABS: ALBUMIN 3.9 GM/DL (3.2-4.5)
[2022-04-10 07:16] LABS: POTASSIUM 3.2 MMOL/L (3.6-5.0)
[2022-04-10 07:17] LABS: CALCIUM 10.3 MG/DL (8.5-10.1)
[2022-04-10 07:18] LABS: TOTAL PROTEIN 6.9 GM/DL (6.4-8.2)
[2022-04-10 07:20] LABS: BILIRUBIN,TOTAL 0.4 MG/DL (0.1-1.0)
[2022-04-10 07:21] LABS: PHOSPHORUS 2.1 MG/DL (2.3-4.7)
[2022-04-10 07:22] LABS: CREATININE SERUM 1.13 MG/DL (0.60-1.30)
[2022-04-10 07:25] LABS: MAGNESIUM 2.6 MG/DL (1.6-2.4)
[2022-04-10] MEDS: KCL 20 MEQ TAB (K-DUR) PO SCH (07:47)
--- NOTE | 2022-04-10 08:13 | Progress Note - Surgery ---
HOLGER ARAUJO 04/10/22 0813: Subjective Date Seen by a Provider: Apr 10, 2022 Time Seen by a Provider: 07:55 Subjective/Events-last exam Patient states she does not feel any different today, however she looked more comfortable today. She still denies abdominal pain but does say she still has a feeling of fullness in her abdomen. She had an episode of emesis this morning. After speaking with her for some time she did say the fluids she received did make her feel a little better, but she is very concerned she is not getting the nutrition she needs. Review of Systems HEENT: Sore Throat (from vomiting) Pulmonary: No Dyspnea, No Cough Cardiovascular: No: Chest Pain, Lt Headedness Gastrointestinal: Nausea, Vomiting, Other (no pain, just feels fullness. Retrosternal chest pain extending into throat) Focused Exam Lactate Level 04/08/22 20:15: Lactic Acid Level 1.79 Objective Exam Vital Signs Date Time Temp Pulse Resp B/P (MAP) Pulse Ox O2 Delivery O2 Flow Rate FiO2 04/10/22 04:05 37.4 87 16 138/83 (101) 92 Room Air 04/09/22 23:54 37.1 82 18 144/91 (108) 92 Room Air 04/09/22 20:00 Room Air 04/09/22 19:53 37.3 99 20 128/77 (94) 94 Room Air 04/09/22 15:53 36.9 83 16 131/73 (92) 96 Room Air 04/09/22 11:08 37.2 95 18 120/73 (89) 93 Room Air I & O 04/10/22 07:00 Intake Total 2535 ml Output Total 200 ml Balance 2335 ml Capillary Refill : Less Than 3 Seconds General Appearance: Chronically ill, Mild Distress, Thin HEENT: PERRL/EOMI, Moist Mucous Membranes Neck: Non Tender, Supple Respiratory: Lungs Clear, Normal Breath Sounds, No Accessory Muscle Use, No Respiratory Distress Cardiovascular: Regular Rate, Rhythm, No Murmur Peripheral Pulses: 2+ Dorsalis Pedis (R), 2+ Left Dors-Pedis (L), 2+ Radial Pulses (R), 2+ Radial Pulses (L) Gastrointestinal: soft; No guarding; tenderness (diffusely below the umbilicus, she says more of a feeling of discomfort and fullness, different today because also feels more tenderness around the umbilicus) Extremity: Non Tender, No Calf Tenderness, No Pedal Edema Neurologic/Psychiatric: Alert, Oriented x3 Skin: Normal Color, Warm/Dry Lymphatic: No Adenopathy (cervical) Results Lab Laboratory Tests 04/09/22 22:05: Sodium Level 132L, Potassium Level 3.3L, Chloride Level 74L, Carbon Dioxide Level 44H, Anion Gap 14, Blood Urea Nitrogen 41H, Creatinine 1.25, Estimat Glomerular Filtration Rate 53, BUN/Creatinine Ratio 33, Glucose Level 134H, Calcium Level 10.2H, Corrected Calcium 10.3H, Total Bilirubin 0.3, Aspartate Amino Transf (AST/SGOT) 26, Alanine Aminotransferase (ALT/SGPT) 48, Alkaline Phosphatase 73, Total Protein 6.8, Albumin 3.9 04/10/22 06:48: Sodium Level 136, Potassium Level 3.2L, Chloride Level 78L, Carbon Dioxide Level 41H, Anion Gap 17H, Blood Urea Nitrogen 36H, Creatinine 1.13, Estimat Glomerular Filtration Rate 60, BUN/Creatinine Ratio 32, Glucose Level 103, Calcium Level 10.3H, Corrected Calcium 10.4H, Total Bilirubin 0.4, Aspartate Amino Transf (AST/SGOT) 27, Alanine Aminotransferase (ALT/SGPT) 45, Alkaline Phosphatase 67, Total Protein 6.9, Albumin 3.9, White Blood Count 12.2H, Red Blood Count 3.89, Hemoglobin 12.9, Hematocrit 37, Mean Corpuscular Volume 96, Mean Corpuscular Hemoglobin 33, Mean Corpuscular Hemoglobin Concent 35, Red Cell Distribution Width 11.3, Platelet Count 321, Mean Platelet Volume 10.1, Immature Granulocyte % (Auto) 0, Neutrophils (%) (Auto) 76H, Lymphocytes (%) (Auto) 11L, Monocytes (%) (Auto) 12, Eosinophils (%) (Auto) 1, Basophils (%) (Auto) 0, Neutrophils # (Auto) 9.3H, Lymphocytes # (Auto) 1.3, Monocytes # (Auto) 1.4H, Eosinophils # (Auto) 0.1, Basophils # (Auto) 0.0, Immature Granulocyte # (Auto) 0.0, Phosphorus Level 2.1L, Magnesium Level 2.6H Assessment/Plan Assessment/Plan Assessment/Plan Small bowel obstruction vs. ileus N/V Leukocytosis- improved Hypokalemia- improved with IV fluids and electrolytes Hypochloremia- improved with IV fluids and electrolytes Hypercapnia- improved with IV fluids and electrolytes Patient would benefit from an NG tube. She claimed they placed one in the ED and she could not tolerate it due to pain and discomfort. She said it fell out when she was coughing. Zofran and phenergan for nausea. Replace potassium with IV KCl. Continue IV fluids. Keep patient NPO. She has increased pain from reflux, could try mylanta, she said that helped the last time she was here. Patient and are still upset because they think nothing is being done to help. ERNIEREIDKELSEY DO 04/10/22 0945: Subjective Time Seen by a Provider: 09:35 Subjective/Events-last exam Pt seen and examined, not any better and states she is "miserable". Pt not passing gas, no BM and having emesis. Review of Systems Pulmonary: No Dyspnea, No Cough Cardiovascular: No: Chest Pain Gastrointestinal: Nausea, Vomiting, Other (no pain, just feels fullness. Retrosternal chest pain extending into throat) Objective Exam General Appearance: Chronically ill, Mild Distress, Thin HEENT: Moist Mucous Membranes Respiratory: Lungs Clear, Normal Breath Sounds, No Accessory Muscle Use, No Respiratory Distress Cardiovascular: Regular Rate, Rhythm, No Murmur Gastrointestinal: soft, distended; No guarding; tenderness (diffusely below the umbilicus, she says more of a feeling of discomfort and fullness, different today because also feels more tenderness around the umbilicus) Assessment/Plan Assessment/Plan Assessment/Plan Small bowel obstruction - not improving, will take her today to OR N/V Leukocytosis- improved Hypokalemia- improved with IV fluids and electrolytes Hypochloremia- improved with IV fluids and electrolytes Hypercapnia- improved with IV fluids and electrolytes Plan to OR for exploration lysis of adhesions and run the entire bowel. Will look for obstructive point; probably in the pelvis. May need small bowel resection, will try to decompress small bowel by getting fluid back into sto mach. Did talk to the pt about the fact that this won't help large bowel and it could occur again in the future. She wants to go through with surgery. Zofran and phenergan for nausea. Replace potassium with IV KCl. Continue IV fluids. Keep patient NPO. Supervisory-Addendum Brief Verification & Attestation Participated in pt care: history, MDM, physical Personally performed: exam, history, MDM, supervision of care Care discussed with: Medical Student Procedures: n/a Verification and Attestation of Medical Student E/M Service A medical student performed and documented this service. I then reviewed and verified all information documented by the medical student and made modifications to such information, when appropriate. I personally performed a physical exam, medical decision making and then discussed any differences between the notes and made revisions as necessary to create one note. Kelsey Fox , 04/10/22 , 09:45 HOLGER ARAUJO Apr 10, 2022 08:13 KELSEY FOX DO Apr 10, 2022 09:45
[2022-04-10] MEDS: THIAMINE INJECTION 100 MG, FOLIC ACID INJECTION 1 MG, VITAMIN MULTI INJECTION 10 ML, MA... IV SCH ×5 (09:39)
[2022-04-10] MEDS ORDERED: POTASSIUM CL 10MEQ/50ML IVPB 50 ML IV SCH (11:15)
[2022-04-10] MEDS ORDERED: fentaNYL INJ 100 MCG/2 ML AMP ONE (11:27)
[2022-04-10] MEDS ORDERED: MIDAZOLAM 2 MG/2 ML (VERSED) VIAL ONE (11:27)
[2022-04-10] MEDS ORDERED: MAGNESIUM 1 GM/100 ML IVPB 100 ML IV NR (11:30)
[2022-04-10] MEDS ORDERED: ceFAZolin INJECTION 1,000 MG ONE (11:43)
[2022-04-10] MEDS: LACTATED RINGERS 1,000 ML IV PRN ×2 (11:47→13:01)
[2022-04-10] MEDS ORDERED: SUCCINYLCHOLINE INJ 100 MG/5 ML SYR/VIAL ONE (12:19)
[2022-04-10] MEDS ORDERED: proPOfol 200 MG/20 ML (DIPRIVAN) VIAL IV ONE (12:19)
[2022-04-10] MEDS ORDERED: ROCURONIUM 10 MG/ML 5 ML SYRINGE IV ONE (12:19)
[2022-04-10] MEDS ORDERED: LIDOCAINE PF 2% 5 ML (XYLOCAINE) VIAL ONE (12:19)
[2022-04-10] MEDS ORDERED: ONDANSETRON 4 MG/2 ML (SDV) Z0FRAN ONE (12:19)
--- NOTE | 2022-04-10 12:40 | Progress Note - Hospitalist ---
YECENIAHARPALA 04/10/22 1240: Subjective HPI/CC On Admission Date Seen by Provider: Apr 10, 2022 Time Seen by Provider: 11:39 Subjective/Events-last exam Patient continues to be in severe pain today. On exam, she states the pain is across her lower abdomen and burning in nature. BS were hypoactive. Nurse reports she vomited twice last night. Surgery has decided to proceed with surgery today at noon. Potassium is 3.2 today. Abd XR and CT both show small bowel obstruction to be present. Focused Exam Lactate Level 04/08/22 20:15: Lactic Acid Level 1.79 Objective Exam Vital Signs Vital Signs Date Time Temp Pulse Resp B/P (MAP) Pulse Ox O2 Delivery O2 Flow Rate FiO2 04/10/22 08:59 36.9 81 17 144/77 (99) 94 Room Air Capillary Refill : Less Than 3 Seconds General Appearance: Thin Respiratory: Chest Non Tender, No Accessory Muscle Use, No Respiratory Distress Cardiovascular: No Edema Gastrointestinal: Abnormal Bowel Sounds (hypoactive ), Tenderness (lower abdomen ) Neurologic/Psychiatric: Alert, Normal Mood/Affect Skin: Normal Color, Warm/Dry Results/Procedures Lab Laboratory Tests 04/09/22 22:05 04/10/22 06:48 Patient resulted labs reviewed. Assessment/Plan Assessment and Plan Assess & Plan/Chief Complaint Assessment: Small Bowel Obstruction Acute Kidney Injury Hypokalemia Nausea and Vomiting Hx of Asthma Hx of HTN Plan: Patient is having surgery at noon today. Potassium replacement Magnesium IVF Cefazolin Supportive care CARROL SUAREZ DO 04/11/22 0559: Subjective Subjective/Events-last exam In OR Supervisory-Addendum Brief Verification & Attestation Participated in pt care: history, MDM, physical Personally performed: exam, history, MDM, supervision of care Care discussed with: Medical Student Procedures: n/a Results interpretation: Verified all documentation Verification and Attestation of Medical Student E/M Service A medical student performed and documented this service in my presence. I reviewed and verified all information documented by the medical student and made modifications to such information, when appropriate. I personally performed the physical exam and medical decision making. Carrol Suarez Apr 11, 2022,05:58 YECENIACHERYL Apr 10, 2022 12:40 CARROL SUAREZ DO Apr 11, 2022 05:59
[2022-04-10] MEDS ORDERED: ROPIVACAINE 5MG/ML 30ML VIAL ONE (12:59)
--- NOTE | 2022-04-10 13:02 | Progress Note-Post Operative ---
Post-Operative Progess Note Surgeon (s)/Repairer General (s) Surgeon KELSEY OLGUIN DO Repairer General: [place] Pre-Operative Diagnosis PSBO Post-Operative Diagnosis PSBO with adhesive band causing stricture Adhesions Procedure & Operative Findings Date of Procedure 04/10/22 Procedure Performed/Findings Exp Laparotomy with SBR CLARITA Appendectomy Anesthesia Type GET Estimated Blood Loss Estimated blood loss (mL): appx 40ml Specimens/Packing Specimens Removed appendix portion of small bowel 1300ml of gastric contents KELSEY OLGUIN DO Apr 10, 2022 13:02
[2022-04-10] MEDS ORDERED: SEVOFLURANE (ULTANE) 15 ML INHAL SOLN ONE (13:17)
--- NOTE | 2022-04-10 13:29 | Anesthesia-General Post-Op ---
General Patient Condition Mental Status/LOC: Same as Preop Cardiovascular: Satisfactory Nausea/Vomiting: Absent Respiratory: Satisfactory Pain: Controlled Complications: Absent Post Op Complications Complications None Follow Up Care/Instructions Patient Instructions None needed. Anesthesia/Patient Condition Patient Condition Patient is doing well, no complaints, stable vital signs, no apparent adverse anesthesia problems. No complications reported per nursing. TUCKER ANN CRNA Apr 10, 2022 13:29
[2022-04-10] MEDS ORDERED: ONDANSETRON 4 MG/2 ML (SDV) Z0FRAN IVP PRN (13:45)
[2022-04-10] MEDS ORDERED: fentaNYL INJ 100 MCG/2 ML AMP IVP ONE (13:45)
[2022-04-10] MEDS ORDERED: HYDROmorphone 2 MG/ML VIAL (DILAUDID) IV ONE (13:45)
[2022-04-10] MEDS ORDERED: PROMETHAZINE INJ 25 MG/ML (PHENERGAN) AMP IVP ONE (13:45)
[2022-04-10] MEDS ORDERED: ceFAZolin INJECTION 1,000 MG VIAL IV NR (14:00)
[2022-04-10] MEDS: PROMETHAZINE INJ 25 MG/ML (PHENERGAN) AMP IVP PRN (14:35)
[2022-04-10] MEDS: fentaNYL INJ 100 MCG/2 ML AMP IV PRN ×3 (14:35→21:40)
[2022-04-10] MEDS: ceFAZolin INJECTION 2,000 MG in NS (IVPB) 50 ML IV SCH (17:22)
[2022-04-10] MEDS ORDERED: morphine INJ 4 MG/ML 1 ML (VIAL/SYRINGE) ONE (23:10)
[2022-04-10] MEDS: morphine INJ 4 MG/ML 1 ML (VIAL/SYRINGE) IVP PRN (23:13)
[2022-04-11] MEDS: ceFAZolin INJECTION 2,000 MG in NS (IVPB) 50 ML IV SCH (01:23)
[2022-04-11 03:15] VITALS: BP 108/69
[2022-04-11] MEDS: morphine INJ 4 MG/ML 1 ML (VIAL/SYRINGE) IVP PRN ×8 (03:23→22:13)
[2022-04-11] MEDS: LACTATED RINGERS 1,000 ML IV SCH ×3 (05:25→21:33)
[2022-04-11 05:43] LABS: POTASSIUM 3.8 MMOL/L (3.6-5.0)
[2022-04-11 05:45] LABS: CALCIUM 8.4 MG/DL (8.5-10.1)
[2022-04-11 05:49] LABS: CREATININE SERUM 0.9 MG/DL (0.60-1.30)
[2022-04-11 05:51] LABS: MAGNESIUM 2.1 MG/DL (1.6-2.4)
[2022-04-11] MEDS: KCL 20 MEQ TAB (K-DUR) PO SCH (05:53)
[2022-04-11] MEDS: POTASSIUM CL 10MEQ/50ML IVPB 50 ML IV SCH (05:53)
--- NOTE | 2022-04-11 06:25 | Progress Note - Hospitalist ---
Subjective HPI/CC On Admission Date Seen by Provider: Apr 11, 2022 Time Seen by Provider: 10:00 Subjective/Events-last exam Improved status Sore from SBO surgery yesterday No nausea Review of Systems General: Fatigue, Malaise Gastrointestinal: Abdominal Pain Focused Exam Lactate Level 04/08/22 20:15: Lactic Acid Level 1.79 Objective Exam Vital Signs Vital Signs Date Time Temp Pulse Resp B/P (MAP) Pulse Ox O2 Delivery O2 Flow Rate FiO2 04/11/22 12:06 37.1 98 20 112/61 (78) 98 Room Air 04/11/22 06:37 0.00 Capillary Refill : Less Than 3 Seconds General Appearance: No Apparent Distress, WD/WN, Chronically ill, Thin Respiratory: Lungs Clear, Normal Breath Sounds Cardiovascular: Regular Rate, Rhythm Neurologic/Psychiatric: Alert, Oriented x3, No Motor/Sensory Deficits, Normal Mood/Affect Results/Procedures Lab Laboratory Tests 04/11/22 05:25 Patient resulted labs reviewed. Assessment/Plan Assessment and Plan Assess & Plan/Chief Complaint Assessment: Small Bowel Obstruction s/p surgical resolution POD # 1 Acute Kidney Injury resolved Hypokalemia Nausea and Vomiting Hx of Asthma Hx of HTN Meth use Plan: Control pain Ambulate JALEESA SUAREZ DO Apr 11, 2022 06:25
[2022-04-11 07:39] VITALS: BP 104/68
[2022-04-11] MEDS: ONDANSETRON 4 MG/2 ML (SDV) Z0FRAN IV PRN ×2 (07:55→18:24)
--- NOTE | 2022-04-11 09:22 | Progress Note - Surgery ---
HOLGER ARAUJO 04/11/22 0922: Subjective Date Seen by a Provider: Apr 11, 2022 Time Seen by a Provider: 08:50 Subjective/Events-last exam Patient is in pain this morning. She rates her abdominal pain at a 7/10 at the highest and says it is everywhere but the most pain is around the incision site. She has not gotten up to ambulate, does not have an IS in the room. Mosher is still in place, has not had a BM and is not passing flatus. She has not experienced nausea since the surgery and the pain/discomfort she had from the reflux is no longer present. Has not had anything PO but said she would be willing to try clear liquids. Review of Systems Pulmonary: Dyspnea (not at rest, only when she takes a deep breath because her ribs hurt); No Cough Cardiovascular: No: Chest Pain, Lt Headedness Gastrointestinal: Abdominal Pain; No: Nausea, Vomiting Genitourinary: No Dysuria, No Hematuria; Other (mosher) Focused Exam Lactate Level 04/08/22 20:15: Lactic Acid Level 1.79 Objective Exam Vital Signs Date Time Temp Pulse Resp B/P (MAP) Pulse Ox O2 Delivery O2 Flow Rate FiO2 04/11/22 07:39 37.0 102 16 104/68 (80) 96 Room Air 04/11/22 06:37 Room Air 0.00 04/11/22 03:15 36.8 110 17 108/69 (82) 94 Room Air 04/10/22 23:08 37.0 120 17 109/83 (92) 96 Room Air 04/10/22 19:30 Room Air 04/10/22 19:30 37.0 99 17 121/75 (90) 95 Room Air 04/10/22 15:06 36.8 91 16 145/81 (102) 97 Room Air 04/10/22 14:25 Room Air 04/10/22 14:10 36.8 14 128/78 (95) 98 Room Air 04/10/22 14:05 Room Air 04/10/22 14:00 16 100 OxyMask 10.00 04/10/22 13:50 OxyMask 10.00 04/10/22 13:50 25 122/70 (87) 100 OxyMask 10.00 04/10/22 13:40 20 123/88 (100) 100 OxyMask 10.00 04/10/22 13:35 OxyMask 10.00 04/10/22 13:30 18 132/85 (101) 100 OxyMask 10.00 04/10/22 13:20 OxyMask 10.00 04/10/22 13:20 36.4 22 138/92 (107) 100 OxyMask 10.00 I & O 04/11/22 07:00 Intake Total 1080 ml Output Total 2080 ml Balance -1000 ml Capillary Refill : Less Than 3 Seconds General Appearance: Mild Distress, Thin HEENT: PERRL/EOMI, Moist Mucous Membranes Neck: Non Tender, Supple Respiratory: Lungs Clear, Normal Breath Sounds, No Accessory Muscle Use, No Respiratory Distress, Other (pain on deep inspiration associated with rib pain) Cardiovascular: No Murmur, Tachycardia Peripheral Pulses: 2+ Dorsalis Pedis (R), 2+ Left Dors-Pedis (L), 2+ Radial Pulses (R), 2+ Radial Pulses (L) Gastrointestinal: No guarding; tenderness (diffuse, most tender around incision site and b/l lower quadrants), other (dressing over incision has moderate amount of blood but has not soaked through, incision is clean and intact) Extremity: Non Tender, No Calf Tenderness, No Pedal Edema Neurologic/Psychiatric: Alert, Oriented x3 Skin: Normal Color, Warm/Dry Lymphatic: No Adenopathy (cervical) Results Lab Laboratory Tests 04/11/22 05:25: Sodium Level 132L, Potassium Level 3.8, Chloride Level 87L, Carbon Dioxide Level 34H, Anion Gap 11, Blood Urea Nitrogen 31H, Creatinine 0.90, Estimat Glomerular Filtration Rate 79, BUN/Creatinine Ratio 34, Glucose Level 116H, Calcium Level 8.4L, Magnesium Level 2.1 Assessment/Plan Assessment/Plan Assessment/Plan S/P small bowel resection, lysis of adhesions, appendectomy- POD#1 N/V- improved Leukocytosis Hypokalemia- resolved Hypochloremia- improved with IV fluids and electrolytes Hypercapnia- improved with IV fluids and electrolytes Patient has not ambulated yet due to pain. Encouraged her to do so as much as she can tolerate today. She does not have an IS in her room, will make sure she gets one today. Pain control with morphine and fentanyl. Zofran and phenergan for nausea PRN. Will discontinue mosher today. Advance to clear liquids. WALTER OLGUIN Leona DO 04/11/22 1354: Subjective Time Seen by a Provider: 12:34 Subjective/Events-last exam Pt seen and examined, states moderate pain and denies any flatus. She has not ambulated yet. Review of Systems Pulmonary: Dyspnea (not at rest, only when she takes a deep breath because her ribs hurt); No Cough Cardiovascular: No: Chest Pain Gastrointestinal: Abdominal Pain; No: Nausea, Vomiting Genitourinary: No Dysuria, No Hematuria Objective Exam General Appearance: Mild Distress, Thin HEENT: PERRL/EOMI, Moist Mucous Membranes Neck: Supple Respiratory: Lungs Clear, Normal Breath Sounds, No Accessory Muscle Use, No Respiratory Distress, Other (pain on deep inspiration associated with rib pain) Cardiovascular: No Murmur, Tachycardia Gastrointestinal: No guarding; tenderness (diffuse, most tender around incision site and b/l lower quadrants), other (dressing over incision has moderate amount of blood but has not soaked through, incision is clean and intact) Extremity: No Pedal Edema Neurologic/Psychiatric: Alert, Oriented x3 Assessment/Plan Assessment/Plan Assessment/Plan S/P small bowel resection, lysis of adhesions, appendectomy- POD#1 N/V- improved Leukocytosis Hypokalemia- resolved Hypochloremia- improved with IV fluids and electrolytes Hypercapnia- improved with IV fluids and electrolytes Patient has not ambulated yet due to pain. Encouraged her to do so as much as she can tolerate today. She does not have an IS in her room, will make sure she gets one today. Pain control with morphine and fentanyl. Zofran and phenergan for nausea PRN. Will discontinue mosher today. Will advance diet slowly; start with sips of clear liquids. Supervisory-Addendum Brief Verification & Attestation Participated in pt care: history, MDM, physical Personally performed: exam, history, MDM, supervision of care Care discussed with: Medical Student Procedures: n/a Verification and Attestation of Medical Student E/M Service A medical student performed and documented this service. I then reviewed and verified all information documented by the medical student and made modifications to such information, when appropriate. I personally performed a physical exam, medical decision making and then discussed any differences between the notes and made revisions as necessary to create one note. Walter Olguin , 04/11/22 , 13:58 HOLGER ARAUJO Apr 11, 2022 09:22 WALTER OLGUIN DO Apr 11, 2022 13:54
[2022-04-11] MEDS: THIAMINE INJECTION 100 MG, FOLIC ACID INJECTION 1 MG, VITAMIN MULTI INJECTION 10 ML, MA... IV SCH ×5 (09:37)
[2022-04-11] MEDS ORDERED: ONDANSETRON 4 MG (ZOFRAN) ORAL DISSOLVE TAB PO PRN (10:00)
[2022-04-11 12:06] VITALS: BP 112/61
[2022-04-11 17:00] VITALS: BP 112/71
[2022-04-11] MEDS ORDERED: PANTOPRAZOLE 40 MG (PROTONIX) VIAL ONE (18:42)
[2022-04-11] MEDS ORDERED: PANTOPRAZOLE 40 MG (PROTONIX) VIAL IV ONE (18:45)
[2022-04-11 19:55] VITALS: BP 108/71
--- NOTE | 2022-04-11 20:34 | OPERATIVE REPORT ---
DATE OF SERVICE: 04/10/2022 PREOPERATIVE DIAGNOSIS: Partial small-bowel obstruction. POSTOPERATIVE DIAGNOSES: 1. Partial small-bowel obstruction with adhesive band causing a stricture. 2. Adhesions. PROCEDURE: 1. Exploratory laparotomy, small bowel resection. 2. Lysis of adhesions. 3. Appendectomy. 4. Manual removal of small bowel contents. SURGEON: Kelsey Fox DO SUPERINTENDENT RECREATION: Kirby Scales DO. ANESTHESIA: General endotracheal tube. SPECIMEN: 1. Appendix. 2. Portion of small bowel. 3. 1300 mL of gastric contents. INDICATION FOR PROCEDURE: The patient is a 38-year-old female who had at least a partial small-bowel obstruction, possibly Complete bowel obstruction that had not been getting better, needed to go to the OR. FINDINGS: The patient had an area in the upper portion of the jejunum or possibly ileum that had adhesive band and everything superior to this was dilated with lots of fluid, decreased a little bit below this and then she had very collapsed and small intestine that was down in the pelvis. She had multiple adhesions. The appendix was stuck under these adhesions, possibly a little bit red, but did not look really inflamed. PROCEDURE NOTE: After informed consent was obtained, the patient was brought to the operating room, placed on the operating table in supine position. She was sterilely prepped and draped in normal fashion. A midline incision was made with #10 blade, carried down through the skin into subcutaneous tissue, deepened to subcutaneous tissue with Bovie electrocautery down to fascia. Fascia was incised with Bovie electrocautery, bluntly entered the abdomen. This incision made was from just above the umbilicus down to the suprapubic area, increased it with the Bovie electrocautery. Once we got in, started trying to run the small bowel, able to get out the very distended small bowel and found multiple adhesions. These adhesive bands were taken down. There appeared to be one causing a stricture and some damage to the mesentery and small bowel in the upper portion of the ileum maybe even jejunum, went down into the pelvis and right pericolic gutter dissected out the cecum, able to get this out. There were adhesions all over this and then into the appendix. I elected to remove the appendix free this up using Bovie electrocautery as well as then clamping the mesoappendix with a hemostat and then tying with 3-0 Vicryl. I then used a FAHAD to cut the appendix off and passed this off the table. I continued, once we were able to get the cecum up out of the way, then followed the terminal ileum and went down into the pelvis. The patient was placed slightly Trendelenburg, carefully started dissecting these adhesions out, able to push it away from the sigmoid and then get all of the terminal ileum out of the pelvis. Once it was out of the pelvis, it was noted to be very decompressed and flat. Ran the terminal ileum from the cecum all the way to the adhesive band freeing up all the adhesions. This and then taking all of the fluid that was in the small intestine and carefully milking it back by using clamping motion on the intestine and pushed all of this fluid back into the stomach and then suctioning out of the stomach with the OG tube that the end that anesthesia had placed, got out 1300 mL. Once this was completely flat, looked at this area of stricture from above, there was some damage to the mesentery, elected to cut this part out, did a [id number] anastomosis, made a defect in the antimesenteric border placed one side of the FAHAD on either portion, clamped and fired, thereby transecting creating a [id number] functional end-to-end anastomosis. I then closed this with another firing of the FAHAD, took off the 4-inch portion of the small intestine by clamping the mesentery with hemostats and then cutting above it and then tying these with 3-0 Vicryl ties, closed this mesenteric defect with another 3-0 Vicryl suture, then ran the small bowel again did not see any holes, did not see any defects. At this point, dropped all this back in, irrigated copiously with normal saline, had placed the sigmoid colon down in the pelvis as well as the cecum to try and protect from getting the small bowel going back in there, pulled the omentum down over the intestine. It was very decompressed because we had decompressed it manually. OG tube was in place. It suctioned out all the fluid. At this point, then closed the midline incision closing with a #1 double stranded PDS suture running from the superior portion to inferior portion and then tying to itself. Copiously irrigated the incision, then closed the skin with oseas. Area was cleaned and dried, dressings placed. The patient was then transferred to recovery room in stable condition. Sponge, instrument and needle count correct at the end of the case. Dr. Scales assisted in this case helping to make incisions, close incisions, identify anatomy, hold anatomy out of the way as well as helping with the bowel resection. Job ID: [id number] DocumentID: [id number] Dictated Date: 04/11/2022 14:51:03 Prosthetic Aide Date: 04/11/2022 20:33:50 Dictated By: KELSEY FOX DO
[2022-04-11 23:22] VITALS: BP 107/65
[2022-04-12] MEDS: fentaNYL INJ 100 MCG/2 ML AMP IV PRN ×8 (01:57→22:41)
[2022-04-12 03:34] VITALS: BP 117/73
[2022-04-12] MEDS: ONDANSETRON 4 MG/2 ML (SDV) Z0FRAN IV PRN (03:57)
[2022-04-12 05:00] LABS: POTASSIUM 3.1 MMOL/L (3.6-5.0)
[2022-04-12 05:01] LABS: CALCIUM 8.2 MG/DL (8.5-10.1)
[2022-04-12 05:05] LABS: CREATININE SERUM 0.71 MG/DL (0.60-1.30)
[2022-04-12] MEDS: KCL 20 MEQ TAB (K-DUR) PO SCH (05:05)
[2022-04-12] MEDS: POTASSIUM CL 10MEQ/50ML IVPB 50 ML IV SCH ×5 (05:08→09:18)
[2022-04-12] MEDS: NS IV 500 ML 500 ML IV PRN (05:36)
[2022-04-12 07:45] VITALS: BP 128/71
[2022-04-12] MEDS: LACTATED RINGERS 1,000 ML IV SCH ×3 (07:50→23:45)
--- NOTE | 2022-04-12 07:57 | Progress Note - Hospitalist ---
Subjective HPI/CC On Admission Date Seen by Provider: Apr 12, 2022 Time Seen by Provider: 10:00 Subjective/Events-last exam Doing well Pain improved Feels bloated and gassy No issues Review of Systems Gastrointestinal: Abdominal Pain Objective Exam Vital Signs Vital Signs Date Time Temp Pulse Resp B/P (MAP) Pulse Ox O2 Delivery O2 Flow Rate FiO2 04/12/22 15:33 37.6 99 18 130/76 (94) 100 Room Air 04/11/22 06:37 0.00 Capillary Refill : Less Than 3 Seconds General Appearance: No Apparent Distress, WD/WN, Chronically ill, Thin Respiratory: Lungs Clear, Normal Breath Sounds Cardiovascular: Regular Rate, Rhythm Neurologic/Psychiatric: Alert, Oriented x3, No Motor/Sensory Deficits, Normal Mood/Affect Results/Procedures Lab Laboratory Tests 04/12/22 04:45 Patient resulted labs reviewed. Assessment/Plan Assessment and Plan Assess & Plan/Chief Complaint Assessment: Small Bowel Obstruction s/p surgical resolution POD # 2 Acute Kidney Injury resolved Hypokalemia Nausea and Vomiting Hx of Asthma Hx of HTN Meth use Plan: Control pain Ambulate JALEESA SUAREZ DO Apr 12, 2022 07:57
[2022-04-12] MEDS: PANTOPRAZOLE 40 MG (PROTONIX) VIAL IV SCH (09:19)
[2022-04-12 11:11] VITALS: BP 125/68
--- NOTE | 2022-04-12 11:37 | Progress Note - Surgery ---
HOLGER ARAUJO 04/12/22 1137: Subjective Date Seen by a Provider: Apr 12, 2022 Time Seen by a Provider: 11:05 Subjective/Events-last exam Patient appears to be doing much better today. She was sitting in her chair comfortably. Pain is much improved from yesterday rated at a 2/10 and associated with the incision only. She has not had a BM or had flatus, but she said she has a lot of gas built up and thinks she will pass gas today. She has been having reflux, says protonix has helped with that. She has been on a clear liquid diet and is tolerating it well, said she is hungry and would like to eat something. Claims she has been ambulating consistently by walking around the halls. Review of Systems Pulmonary: No Dyspnea, No Cough Cardiovascular: No: Chest Pain, Palpitations, Lt Headedness Gastrointestinal: Abdominal Pain; No: Nausea, Vomiting Objective Exam Vital Signs Date Time Temp Pulse Resp B/P (MAP) Pulse Ox O2 Delivery O2 Flow Rate FiO2 04/12/22 11:11 36.6 80 18 125/68 (87) 96 Room Air 04/12/22 07:45 36.9 88 18 128/71 (90) 96 Room Air 04/12/22 03:34 37.0 89 18 117/73 (88) 97 Room Air 04/11/22 23:22 36.9 104 18 107/65 (79) 96 Room Air 04/11/22 20:10 Room Air 04/11/22 19:55 37.7 102 20 108/71 (83) 100 Room Air 04/11/22 17:00 37.5 91 18 112/71 (85) 99 Room Air 04/11/22 12:06 37.1 98 20 112/61 (78) 98 Room Air I & O 04/12/22 07:00 Intake Total 1540.2 ml Output Total 450 ml Balance 1090.2 ml Capillary Refill : Less Than 3 Seconds General Appearance: No Apparent Distress, Thin HEENT: PERRL/EOMI, Moist Mucous Membranes Neck: Non Tender, Supple Respiratory: Lungs Clear, Normal Breath Sounds, No Accessory Muscle Use, No Respiratory Distress Cardiovascular: Regular Rate, Rhythm, No Murmur Peripheral Pulses: 2+ Dorsalis Pedis (R), 2+ Left Dors-Pedis (L), 2+ Radial Pulses (R), 2+ Radial Pulses (L) Gastrointestinal: soft; No guarding; tenderness (diffuse, most tender around incision site and b/l lower quadrants), other (dressing over incision has minimal amount of fluid, incision c/d/i) Extremity: Non Tender, No Calf Tenderness, No Pedal Edema Neurologic/Psychiatric: Alert, Oriented x3 Skin: Normal Color, Warm/Dry Lymphatic: No Adenopathy (cervical) Results Lab Laboratory Tests 04/12/22 04:45: Sodium Level 130L, Potassium Level 3.1L, Chloride Level 93L, Carbon Dioxide Level 29, Anion Gap 8, Blood Urea Nitrogen 21H, Creatinine 0.71, Estimat Glomerular Filtration Rate 105, BUN/Creatinine Ratio 30, Glucose Level 94, Calcium Level 8.2L Assessment/Plan Assessment/Plan Assessment/Plan S/P small bowel resection, lysis of adhesions, appendectomy- POD#1 N/V- improved Leukocytosis Hyponatremia- continue IV fluids Hypokalemia- 3.1 today from 3.8 yesterday Hypochloremia- improved with IV fluids and electrolytes Hypercapnia- improved with IV fluids and electrolytes Patient is ambulating frequently. She does not have an IS in her room, will make sure she gets one today. Pain control with morphine and fentanyl currently, patient said she is willing to try oral pain medicine, we will do that and see if she tolerates it. Zofran and phenergan for nausea PRN. She tolerated clear liquid diet well, advance diet slowly as tolerated. WALTER FOX DO 04/12/22 1359: Subjective Time Seen by a Provider: 12:34 Subjective/Events-last exam Pt seen and examined, she has minimal abdominal pain. No flatus and no BM, but also no N/V. Review of Systems Pulmonary: No Dyspnea, No Cough Cardiovascular: No: Chest Pain, Palpitations Gastrointestinal: Abdominal Pain; No: Nausea, Vomiting Objective Exam General Appearance: No Apparent Distress, Thin HEENT: PERRL/EOMI, Moist Mucous Membranes Respiratory: Lungs Clear, Normal Breath Sounds, No Accessory Muscle Use, No Respiratory Distress Cardiovascular: Regular Rate, Rhythm, No Murmur Gastrointestinal: soft; No guarding; tenderness (diffuse, most tender around incision site and b/l lower quadrants), other (dressing over incision has minimal amount of fluid, incision c/d/i) Extremity: No Calf Tenderness, No Pedal Edema Neurologic/Psychiatric: Alert, Oriented x3 Assessment/Plan Assessment/Plan Assessment/Plan S/P small bowel resection, lysis of adhesions, appendectomy- POD#1 N/V- improved Leukocytosis Hyponatremia- continue IV fluids Hypokalemia- 3.1 today from 3.8 yesterday Hypochloremia- improved with IV fluids and electrolytes Hypercapnia- improved with IV fluids and electrolytes Patient is ambulating frequently. She does not have an IS in her room, will make sure she gets one today. Pain control with morphine and fentanyl currently, will hold off on oral pain medicine. Zofran and phenergan for nausea PRN. She is tolerating clear liquid but will wait to advance when she has some flatus at least. Supervisory-Addendum Brief Verification & Attestation Participated in pt care: history, MDM, physical Personally performed: exam, history, MDM, supervision of care Care discussed with: Medical Student Procedures: n/a Verification and Attestation of Medical Student E/M Service A medical student performed and documented this service. I then reviewed and verified all information documented by the medical student and made modifications to such information, when appropriate. I personally performed a physical exam, medical decision making and then discussed any differences between the notes and made revisions as necessary to create one note. Walter Fox , 04/12/22 , 14:01 HOLGER ARAUJO Apr 12, 2022 11:37 WALTER FOX DO Apr 12, 2022 13:59
[2022-04-12 15:33] VITALS: BP 130/76
[2022-04-12 19:40] VITALS: BP 138/76
[2022-04-13] VITALS: BP 140/73
[2022-04-13] MEDS: fentaNYL INJ 100 MCG/2 ML AMP IV PRN ×8 (01:12→22:50)
[2022-04-13] MEDS: ONDANSETRON 4 MG/2 ML (SDV) Z0FRAN IV PRN ×2 (01:15→07:41)
[2022-04-13 03:44] VITALS: BP 134/77
[2022-04-13] MEDS: LACTATED RINGERS 1,000 ML IV SCH ×2 (04:26→12:56)
[2022-04-13] MEDS: PROMETHAZINE INJ 25 MG/ML (PHENERGAN) AMP IVP PRN (04:34)
[2022-04-13 04:35] LABS: BASOPHILS % (AUTO) 0 % (0-10); EOSINOPHILS # (AUTO) 0.2 10^3/uL (0.0-0.3); EOSINOPHILS % (AUTO) 2 % (0-10); HEMATOCRIT 30 % (35-52); LYMPHOCYTES # (AUTO) 1.4 10^3/uL (1.0-4.0); LYMPHOCYTES % (AUTO) 15 % (12-44); MEAN CORPUSCULAR HEMOGLOBIN 32 pg (25-34); MEAN CORPUSCULAR HGB CONC 34 g/dL (32-36); MEAN CORPUSCULAR VOLUME 96 fL (80-99); MEAN PLATELET VOLUME 9.8 fL (9.0-12.2); MONOCYTES # (AUTO) 0.7 10^3/uL (0.0-1.0); MONOCYTES % (AUTO) 8 % (0-12); NEUTROPHILS # (AUTO) 6.5 10^3/uL (1.8-7.8); NEUTROPHILS % (AUTO) 75 % (42-75); PLATELET COUNT 272 10^3/uL (130-400); WHITE BLOOD COUNT 8.8 10^3/uL (4.3-11.0)
[2022-04-13 04:45] LABS: ALBUMIN 2.9 GM/DL (3.2-4.5); POTASSIUM 3.5 MMOL/L (3.6-5.0)
[2022-04-13 04:47] LABS: CALCIUM 8.2 MG/DL (8.5-10.1)
[2022-04-13 04:48] LABS: TOTAL PROTEIN 5.5 GM/DL (6.4-8.2)
[2022-04-13 04:50] LABS: BILIRUBIN,TOTAL 0.4 MG/DL (0.1-1.0)
[2022-04-13 04:51] LABS: CREATININE SERUM 0.61 MG/DL (0.60-1.30)
[2022-04-13] MEDS: KCL 20 MEQ TAB (K-DUR) PO SCH (04:55)
[2022-04-13] MEDS: POTASSIUM CL 10MEQ/50ML IVPB 50 ML IV SCH (04:55)
[2022-04-13] MEDS ORDERED: KCL 20 MEQ TAB (K-DUR) PO ONE (06:00)
[2022-04-13 07:30] VITALS: BP 146/82
--- NOTE | 2022-04-13 07:41 | Progress Note - Surgery ---
CHERYL KEENE 04/13/22 0741: Subjective Date Seen by a Provider: Apr 13, 2022 Time Seen by a Provider: 07:36 Subjective/Events-last exam Patient is in pain this morning. She states it is an 8/10 and mostly over and around the incision. She has not been able to pass any flatus or have a bowel m ovement since the surgery. She has some nausea at times but has not vomited. She is tolerating clear liquids. Review of Systems Pulmonary: No Dyspnea, No Cough Cardiovascular: No: Chest Pain, Palpitations Gastrointestinal: Nausea, Abdominal Pain Objective Exam Vital Signs Date Time Temp Pulse Resp B/P (MAP) Pulse Ox O2 Delivery O2 Flow Rate FiO2 04/13/22 07:30 36.8 89 18 146/82 (103) 98 Room Air 04/13/22 03:44 36.3 96 16 134/77 (96) 99 Room Air 04/13/22 00:00 37.0 99 16 140/73 (95) 99 Room Air 04/12/22 20:00 Room Air 04/12/22 19:40 37.7 98 18 138/76 (96) 100 Room Air 04/12/22 15:33 37.6 99 18 130/76 (94) 100 Room Air 04/12/22 11:11 36.6 80 18 125/68 (87) 96 Room Air 04/12/22 07:45 36.9 88 18 128/71 (90) 96 Room Air l I & O 04/13/22 07:00 Intake Total 1890 ml Output Total 450 ml Balance 1440 ml Capillary Refill : Less Than 3 Seconds General Appearance: No Apparent Distress, WD/WN, Chronically ill, Thin HEENT: Moist Mucous Membranes Neck: Non Tender, Supple Respiratory: Lungs Clear, Normal Breath Sounds Cardiovascular: Regular Rate, Rhythm, Tachycardia Peripheral Pulses: 2+ Dorsalis Pedis (R), 2+ Left Dors-Pedis (L), 2+ Radial Pulses (R), 2+ Radial Pulses (L) Gastrointestinal: soft; No guarding; tenderness (diffuse, most tender around incision site and b/l lower quadrants), other (incision is clean, dry, intact) Extremity: No Calf Tenderness, No Pedal Edema Neurologic/Psychiatric: Alert, Oriented x3, Normal Mood/Affect Skin: Normal Color, Warm/Dry Lymphatic: No Adenopathy (cervical) Results Lab Laboratory Tests 04/13/22 04:30: White Blood Count 8.8, Red Blood Count 3.09L, Hemoglobin 10.0#L, Hematocrit 30L, Mean Corpuscular Volume 96, Mean Corpuscular Hemoglobin 32, Mean Corpuscular Hemoglobin Concent 34, Red Cell Distribution Width 11.1, Platelet Count 272, Mean Platelet Volume 9.8, Immature Granulocyte % (Auto) 1, Neutrophils (%) (Auto) 75, Lymphocytes (%) (Auto) 15, Monocytes (%) (Auto) 8, Eosinophils (%) (Auto) 2, Basophils (%) (Auto) 0, Neutrophils # (Auto) 6.5, Lymphocytes # (Auto) 1.4, Monocytes # (Auto) 0.7, Eosinophils # (Auto) 0.2, Basophils # (Auto) 0.0, Immature Granulocyte # (Auto) 0.0, Sodium Level 132L, Potassium Level 3.5L, Chloride Level 98, Carbon Dioxide Level 24, Anion Gap 10, Blood Urea Nitrogen 14, Creatinine 0.61, Estimat Glomerular Filtration Rate 110, BUN/Creatinine Ratio 23, Glucose Level 89, Calcium Level 8.2L, Corrected Calcium 9.1, Total Bilirubin 0.4, Aspartate Amino Transf (AST/SGOT) 25, Alanine Aminotransferase (ALT/SGPT) 22, Alkaline Phosphatase 62, Total Protein 5.5L, Albumin 2.9L Assessment/Plan Assessment/Plan Assessment/Plan S/P small bowel resection, lysis of adhesions, appendectomy- POD#2 N/V- improved with medication Leukocytosis - improved 8.8 today from 12.2 Hyponatremia- continue IV fluids Hypokalemia- resolved, 3.5 from 3.1 yesterday Hypochloremia- improved with IV fluids and electrolytes Hypercapnia- improved with IV fluids and electrolytes Patient is ambulating frequently. Pain control with morphine and fentanyl currently, will hold off on oral pain medicine. Zofran and phenergan for nausea PRN. She is tolerating clear liquid but will wait to advance when she has some flatus at least. WALTER FOX DO 04/13/22 1230: Subjective Time Seen by a Provider: 11:52 Subjective/Events-last exam Pt seen and examined, states she is tolerating clears without any N/V. She does have moderate abdominal pain, thinks her belly is distended but better than before surgery. Still no flatus or BM Review of Systems Pulmonary: No Dyspnea, No Cough Cardiovascular: No: Chest Pain, Palpitations Gastrointestinal: Abdominal Pain; No: Nausea, Vomiting Objective Exam General Appearance: Chronically ill, Mild Distress, Thin HEENT: Moist Mucous Membranes Respiratory: Lungs Clear, Normal Breath Sounds, No Accessory Muscle Use Cardiovascular: Regular Rate, Rhythm, No Murmur Gastrointestinal: soft; No guarding; tenderness (diffuse, most tender around incision site and b/l lower quadrants), other (incision is clean, dry, intact) Assessment/Plan Assessment/Plan Assessment/Plan S/P small bowel resection, lysis of adhesions, appendectomy- POD#2 N/V- improved with medication Leukocytosis - improved 8.8 today from 12.2 Hyponatremia- continue IV fluids Hypokalemia- resolved, 3.5 from 3.1 yesterday Hypochloremia- improved with IV fluids and electrolytes Hypercapnia- improved with IV fluids and electrolytes Patient is ambulating frequently. Pain control with morphine and fentanyl currently, will hold off on oral pain medicine. Zofran and phenergan for nausea PRN. She is tolerating clear liquid but will wait to advance when she has some flatus at least. I reviewed the AAS myself, it appears that she has some air-fluid levels, stool in large intestine (not really moving), small pneumoperitoneum (which is expected after recent surgery). Nothing alarming yet. Supervisory-Addendum Brief Verification & Attestation Participated in pt care: history, MDM, physical Personally performed: exam, history, MDM, supervision of care Care discussed with: Medical Student Procedures: n/a Verification and Attestation of Medical Student E/M Service A medical student performed and documented this service. I then reviewed and ve rified all information documented by the medical student and made modifications to such information, when appropriate. I personally performed a physical exam, medical decision making and then discussed any differences between the notes and made revisions as necessary to create one note. Walter Fox , 04/13/22 , 12:30 CHERYL KEENE Apr 13, 2022 07:41 WALTER FOX DO Apr 13, 2022 12:30
[2022-04-13] MEDS: PANTOPRAZOLE 40 MG (PROTONIX) VIAL IV SCH (08:05)
[2022-04-13] MEDS: ENOXAPARIN INJECTION 30 MG/0.3 ML SYR SC SCH (11:01)
[2022-04-13 11:35] VITALS: BP 135/80
--- NOTE | 2022-04-13 11:36 | Progress Note - Hospitalist ---
PATRICIA PRATT 04/13/22 1136: Subjective HPI/CC On Admission Date Seen by Provider: Apr 13, 2022 Time Seen by Provider: 10:15 intractable nausea and vomiting and found to have high grade small bowel obstruction now s/p POD2 for small bowel resection, adhesions lysis, and appendectomy. Subjective/Events-last exam Patient states she is feeling well this morning. She states her pain is tolerable with the pain medications. She states she has not had any flatus or bowel movements yet. She is ambulating well with no concerns. She has been tolerating the clear liquid diet at this time. She has no other questions or concerns at this time. Review of Systems Gastrointestinal: Abdominal Pain (diffuse pain and patients reports sensation of abdominal spasms) Focused Exam Respiratory: Lungs Clear, Normal Breath Sounds, No Accessory Muscle Use, No Respiratory Distress Cardiovascular: Regular Rate, Rhythm, No Edema, No Gallop, No JVD, No Murmur, Normal Peripheral Pulses Peripheral Pulses: 2+ Dorsalis Pedis (R), 2+ Left Dors-Pedis (L), 2+ Radial Pulses (R), 2+ Radial Pulses (L) Skin: normal color, warm/dry Objective Exam Vital Signs Vital Signs Date Time Temp Pulse Resp B/P (MAP) Pulse Ox O2 Delivery O2 Flow Rate FiO2 04/13/22 07:40 Room Air 04/13/22 07:30 36.8 89 18 146/82 (103) 98 04/11/22 06:37 0.00 Capillary Refill : Less Than 3 Seconds General Appearance: No Apparent Distress, WD/WN HEENT: PERRL/EOMI Neck: Full Range of Motion Respiratory: Chest Non Tender, Lungs Clear, Normal Breath Sounds, No Accessory Muscle Use, No Respiratory Distress Cardiovascular: Regular Rate, Rhythm, No Edema, No Gallop, No JVD, No Murmur, Normal Peripheral Pulses Gastrointestinal: No Pulsatile Mass, Abnormal Bowel Sounds (hypoactive bowel sounds although diminshed and present), Tenderness, Other (abdominal wall was tense) Extremity: Normal Capillary Refill, Normal Inspection Neurologic/Psychiatric: Alert, Oriented x3, No Motor/Sensory Deficits, Normal Mood/Affect Skin: Normal Color, Warm/Dry Results/Procedures Lab Laboratory Tests 04/13/22 04:30 Patient resulted labs reviewed. Assessment/Plan Assessment and Plan Assess & Plan/Chief Complaint Ms. Luda Arroyo is a 46 year old female who is now POD2 for small bowel resection, adhesions lysis, and appendectomy for a high grade small bowel obst ruction. She still has not had flatus or a bowel movement which is concerning for a post-operative ileus. Diagnosis/Problems Diagnosis/Problems (1) S/P small bowel resection Status: Acute Assessment & Plan: POD3 for small bowel resection, adhesions lysis, and appendectomy for a high grade small bowel obstruction. Patient has not had flatus or a bowel movement at this time, which is concerning for a post-ope rative ileus. She is on a clear liquid diet at this time. - Continue CLD. If flatus, will consider advancing diet - Cont Morphine 2mg IV q2 hrs PRN and Fentanyl 25 mcg IV q2 hours PRN for pain control. Once able to tolerate PO, will transition to PO pain control. - Cont Zofran 4mg PRN for nausea - PT/OT ordered (2) Hypertension Status: Acute Assessment & Plan: Likely secondary to pain. - Continue to monitor as pain hopefully becomes more manageable. (3) Nausea and vomiting Status: Acute Assessment & Plan: Nausea and vomiting are controlled at this time. - Cont Zofran 4 mg PRN and Phenergan 12.5mg PRN - Cont Pantoprazole 40mg daily (4) Substance abuse Status: Chronic Assessment & Plan: Past methamphetamine use. CARROL SUAREZ DO 04/14/22 0513: Subjective Subjective/Events-last exam Patient doing well Ambulating around Replacing potassium No bowel movement yet Objective Exam General Appearance: No Apparent Distress, WD/WN, Chronically ill Respiratory: Lungs Clear Assessment/Plan Assessment and Plan Assess & Plan/Chief Complaint Ambulating Supervisory-Addendum Brief Verification & Attestation Participated in pt care: history, MDM, physical Personally performed: exam, history, MDM, supervision of care Care discussed with: Medical Student Procedures: n/a Results interpretation: Verified all documentation Verification and Attestation of Medical Student E/M Service A medical student performed and documented this service in my presence. I reviewed and verified all information documented by the medical student and made modifications to such information, when appropriate. I personally performed the physical exam and medical decision making. Carrol Suarez Apr 14, 2022,05:12 PATRICIA PRATT Apr 13, 2022 11:36 CARROL SUAREZ DO Apr 14, 2022 05:13
--- NOTE | 2022-04-13 11:42 | Physical Therapy Progress Note ---
Therapy Progress Note PT observed patient ambulating independent in hallway. Patient also declined PT intervention. No skilled PT indicated. AMAYA KEENAN PT Apr 13, 2022 11:42
--- NOTE | 2022-04-13 11:50 | Occ Therapy Progress Note ---
Therapy Progress Note OT orders received. At OT arrival, pt up ad cora in bathroom. Pt and RN report that patient has been completing all self cares and ambulation independently for days. No skilled OT services warranted at this time. Sarah Jones OT Apr 13, 2022 11:50
[2022-04-13 15:30] VITALS: BP 133/77
--- NOTE | 2022-04-13 16:48 | Diagnostic Imaging Report ---
INDICATION: Left-sided pain, bowel obstruction. COMPARISON: Exam is compared with radiographs 03/20/2022. FINDINGS: Since the prior, there have been vertically oriented soft tissue oseas present postop. This is presumed to account for the small amount of pneumoperitoneum having developed deep to the right greater than left diaphragms. There is a moderately elevated colonic fecal load with prior contrast media having become nearly completely evacuated. Upright view showed a differential air-fluid levels within small bowel; however, small bowel distention appears improved in the interim. The lungs are clear. PICC line is at the lower SVC. IMPRESSION: Interval surgical changes presumed to account for small volume pneumoperitoneum. Small bowel air-fluid levels persist; however, there is decreased small bowel dilatation and partial evacuation of contrast media. Dictated by: Dictated on workstation # [id number]
[2022-04-13 19:46] VITALS: BP 153/76
[2022-04-14] MEDS: LACTATED RINGERS 1,000 ML IV SCH (00:01)
[2022-04-14 00:50] VITALS: BP 141/84
[2022-04-14] MEDS: fentaNYL INJ 100 MCG/2 ML AMP IV PRN ×2 (03:23→05:49)
[2022-04-14 04:25] VITALS: BP 126/76
[2022-04-14 05:06] LABS: BASOPHILS % (AUTO) 1 % (0-10); EOSINOPHILS # (AUTO) 0.2 10^3/uL (0.0-0.3); EOSINOPHILS % (AUTO) 2 % (0-10); HEMATOCRIT 29 % (35-52); HEMOGLOBIN 9.8 g/dL (11.5-16.0); LYMPHOCYTES % (AUTO) 13 % (12-44); MEAN CORPUSCULAR HEMOGLOBIN 33 pg (25-34); MEAN CORPUSCULAR HGB CONC 34 g/dL (32-36); MEAN CORPUSCULAR VOLUME 96 fL (80-99); MEAN PLATELET VOLUME 9.5 fL (9.0-12.2); MONOCYTES # (AUTO) 0.7 10^3/uL (0.0-1.0); MONOCYTES % (AUTO) 9 % (0-12); NEUTROPHILS # (AUTO) 5.8 10^3/uL (1.8-7.8); NEUTROPHILS % (AUTO) 75 % (42-75); PLATELET COUNT 302 10^3/uL (130-400); WHITE BLOOD COUNT 7.7 10^3/uL (4.3-11.0)
[2022-04-14 05:26] LABS: ALBUMIN 2.7 GM/DL (3.2-4.5); BILIRUBIN,TOTAL 0.3 MG/DL (0.1-1.0); CALCIUM 8.1 MG/DL (8.5-10.1); CREATININE SERUM 0.57 MG/DL (0.60-1.30); MAGNESIUM 1.3 MG/DL (1.6-2.4); POTASSIUM 3.6 MMOL/L (3.6-5.0); TOTAL PROTEIN 5.1 GM/DL (6.4-8.2)
[2022-04-14] MEDS: KCL 20 MEQ TAB (K-DUR) PO SCH (05:35)
[2022-04-14] MEDS: POTASSIUM CL 10MEQ/50ML IVPB 50 ML IV SCH ×5 (05:35→14:11)
[2022-04-14 07:55] VITALS: BP 143/81
[2022-04-14] MEDS ORDERED: KCL 20 MEQ TAB (K-DUR) PO ONE (08:00)
[2022-04-14] MEDS: PANTOPRAZOLE 40 MG (PROTONIX) VIAL IV SCH (08:55)
[2022-04-14] MEDS: ENOXAPARIN INJECTION 30 MG/0.3 ML SYR SC SCH (08:57)
[2022-04-14] MEDS ORDERED: HYDROcodone/APAP 5 MG/325 MG (LORTAB) TAB PO PRN (09:30)
--- NOTE | 2022-04-14 09:46 | Progress Note - Surgery ---
CHERYL KEENE 04/14/22 0946: Subjective Date Seen by a Provider: Apr 14, 2022 Time Seen by a Provider: 09:41 Subjective/Events-last exam Patient is feeling much better today. She states she would like to go home. She reports that she passed gas last night as well as had a small bowel movement of loose stool. She also says she has no problems with urinating. Patient states that her abdominal pain has improved and currently at a 2/10. Patient is no longer nauseous or vomiting. She is hungry and would like to see if she can eat some regular food. She denies any other complaints at this time. Review of Systems General: No Chills Pulmonary: No Dyspnea, No Cough Cardiovascular: No: Chest Pain, Palpitations Gastrointestinal: Abdominal Pain; No: Nausea, Vomiting Objective Exam Vital Signs Date Time Temp Pulse Resp B/P (MAP) Pulse Ox O2 Delivery O2 Flow Rate FiO2 04/14/22 07:55 36.7 92 18 143/81 (101) 99 Room Air 04/14/22 05:49 37.1 04/14/22 04:25 37.1 90 20 126/76 (93) 98 Room Air 04/14/22 03:53 36.9 04/14/22 00:50 36.9 97 20 141/84 (103) 99 Room Air 04/13/22 23:20 36.9 04/13/22 22:50 36.9 04/13/22 20:17 36.9 04/13/22 20:00 Room Air 04/13/22 19:47 36.9 04/13/22 19:46 37.3 109 20 153/76 (101) 100 Room Air 04/13/22 15:30 36.9 101 17 133/77 (95) 99 Room Air 04/13/22 11:35 36.8 85 18 135/80 (98) 98 Room Air I & O0 04/14/22 07:00 Intake Total 1010 ml Balance 1010 ml Capillary Refill : Less Than 3 Seconds General Appearance: No Apparent Distress, WD/WN, Chronically ill HEENT: Moist Mucous Membranes Neck: Full Range of Motion Respiratory: Chest Non Tender, Lungs Clear, Normal Breath Sounds, No Accessory Muscle Use, No Respiratory Distress Cardiovascular: No Edema, No Murmur, Tachycardia Peripheral Pulses: 2+ Dorsalis Pedis (R), 2+ Left Dors-Pedis (L), 2+ Radial Pulses (R), 2+ Radial Pulses (L) Gastrointestinal: soft; No guarding; tenderness (diffuse, most tender around incision site and b/l lower quadrants), other (incision is clean, dry, intact) Extremity: Normal Capillary Refill, Normal Inspection Neurologic/Psychiatric: Alert, Oriented x3, No Motor/Sensory Deficits, Normal Mood/Affect Skin: Normal Color, Warm/Dry Lymphatic: No Adenopathy (cervical) Results Lab Laboratory Tests 04/14/22 04:58: White Blood Count 7.7, Red Blood Count 3.01L, Hemoglobin 9.8L, Hematocrit 29L, Mean Corpuscular Volume 96, Mean Corpuscular Hemoglobin 33, Mean Corpuscular Hemoglobin Concent 34, Red Cell Distribution Width 11.1, Platelet Count 302, Mean Platelet Volume 9.5, Immature Granulocyte % (Auto) 0, Neutrophils (%) (Auto) 75, Lymphocytes (%) (Auto) 13, Monocytes (%) (Auto) 9, Eosinophils (%) (Auto) 2, Basophils (%) (Auto) 1, Neutrophils # (Auto) 5.8, Lymphocytes # (Auto) 1.0, Monocytes # (Auto) 0.7, Eosinophils # (Auto) 0.2, Basophils # (Auto) 0.0, Immature Granulocyte # (Auto) 0.0, Sodium Level 136, Potassium Level 3.6, Chloride Level 103, Carbon Dioxide Level 22, Anion Gap 11, Blood Urea Nitrogen 7, Creatinine 0.57L, Estimat Glomerular Filtration Rate 112, BUN/Creatinine Ratio 12, Glucose Level 100, Calcium Level 8.1L, Corrected Calcium 9.1, Magnesiu m Level 1.3L, Total Bilirubin 0.3, Aspartate Amino Transf (AST/SGOT) 20, Alanine Aminotransferase (ALT/SGPT) 22, Alkaline Phosphatase 54, Total Protein 5.1L, Albumin 2.7L Assessment/Plan Assessment/Plan Assessment/Plan S/P small bowel resection, lysis of adhesions, appendectomy- POD#3 N/V- improved with medication Hypokalemia - resolved with IVF and potassium replacement Hyponatremia - resolved with IVF and sodium replacement Patient will be discharged home today and was instructed to continue to monitor her progress. Advised to keep moving at home and trying to have BM/pass gas. She is fine to advance to soft diet. WALTER FOX DO 04/14/22 1532: Subjective Time Seen by a Provider: 12:14 Subjective/Events-last exam Pt seen and examined, states she has lots of flatus, BM last night and tolerating soft diet. Pain is controlled and she would like to go home, "I am keeping food down now". Review of Systems General: No Chills Pulmonary: No Dyspnea, No Cough Cardiovascular: No: Chest Pain, Palpitations Gastrointestinal: Abdominal Pain (minimal); No: Nausea, Vomiting Objective Exam General Appearance: No Apparent Distress, Thin HEENT: Moist Mucous Membranes Respiratory: Lungs Clear, Normal Breath Sounds, No Accessory Muscle Use, No Respiratory Distress Cardiovascular: Regular Rate, Rhythm, No Edema, No Murmur Gastrointestinal: soft; No guarding; tenderness (mostly tender around incision ), other (incision is clean, dry, intact) Assessment/Plan Assessment/Plan Assessment/Plan S/P small bowel resection, lysis of adhesions, appendectomy- POD#3 N/V- improved with medication Hypokalemia - resolved with IVF and potassium replacement Hyponatremia - resolved with IVF and sodium replacement Patient will be discharged home today and was instructed to continue to monitor her progress. Advised to keep moving at home and trying to have BM/pass gas. She is fine to advance to soft diet. Supervisory-Addendum Brief Verification & Attestation Participated in pt care: history, MDM, physical Personally performed: exam, history, MDM, supervision of care Care discussed with: Medical Student Procedures: n/a Verification and Attestation of Medical Student E/M Service A medical student performed and documented this service. I then reviewed and verified all information documented by the medical student and made modificati ons to such information, when appropriate. I personally performed a physical exam, medical decision making and then discussed any differences between the notes and made revisions as necessary to create one note. Walter Fox , 04/14/22 , 15:32 CHERYL KEENE Apr 14, 2022 09:46 WALTER FOX DO Apr 14, 2022 15:32
[2022-04-14] MEDS: MAGNESIUM 1 GM/100 ML IVPB 100 ML IV SCH ×2 (10:51→11:58)
--- NOTE | 2022-04-14 11:08 | Progress Note - Hospitalist ---
PATRICIA PRATT 04/14/22 1108: Subjective HPI/CC On Admission Date Seen by Provider: Apr 14, 2022 Time Seen by Provider: 09:45 intractable nausea and vomiting and found to have high grade small bowel obstruction now s/p POD4 for small bowel resection, adhesions lysis, and appendectomy. Subjective/Events-last exam Patient is feeling well today. She states she had a bowel movement yesterday and that she has been having flatus since then. She states her pain is well controlled and only has some mild tenderness along her mid abdominal incision. She is okay with transitioning off IV pain medications when able to eat. She is eager to eat and we discussed that would be surgeries decision. She feels like her strength is close to her baseline and that she would be able to go home soon if possible. Hospital course: Ms. Luda Arroyo is a 46 y/o female with a PMH of asthma, HTN, previous small bowel resection, hysterectomy, and meth use who presented to the ED on 04/08/22 with intractable nausea and vomiting. She was found to have a high grade small bowel obstruction and proceeded to have a small bowel resection with adhesion lysis and appendectomy. After surgery her pain was controlled and her bowels eventually started moving on post-operative day 3. She ambulated well throughout her stay. Her potassium and magnesium were repleted as needed. She had a follow up acute abdominal series xray which showed a small volume pneumoperitoneum. Otherwise she had no other complications during her stay. She is stable for discharge. Review of Systems Gastrointestinal: Abdominal Pain (mild and well controlled) Focused Exam Respiratory: Chest Non Tender, Lungs Clear, Normal Breath Sounds, No Accessory Muscle Use, No Respiratory Distress Cardiovascular: Regular Rate, Rhythm, No Edema, No Gallop, No JVD, No Murmur, Normal Peripheral Pulses Skin: normal color, warm/dry Objective Exam Vital Signs Vital Signs Date Time Temp Pulse Resp B/P (MAP) Pulse Ox O2 Delivery O2 Flow Rate FiO2 04/14/22 07:55 36.7 92 18 143/81 (101) 99 Room Air 04/11/22 06:37 0.00 Capillary Refill : Less Than 3 Seconds General Appearance: No Apparent Distress, WD/WN HEENT: PERRL/EOMI Neck: Full Range of Motion, Normal Inspection Respiratory: Chest Non Tender, Lungs Clear, Normal Breath Sounds, No Accessory Muscle Use, No Respiratory Distress Cardiovascular: Regular Rate, Rhythm, No Edema, No Gallop, No JVD, No Murmur, Normal Peripheral Pulses Gastrointestinal: Normal Bowel Sounds (present although slightly hypoactive), No Organomegaly, No Pulsatile Mass, Tenderness (along LLQ and incision) Extremity: Normal Capillary Refill Neurologic/Psychiatric: Alert, Oriented x3, No Motor/Sensory Deficits, Normal Mood/Affect Skin: Normal Color, Warm/Dry Results/Procedures Lab Laboratory Tests 04/14/22 04:58 Patient resulted labs reviewed. Imaging: Reviewed Imaging Films, Reviewed Imaging Report Assessment/Plan Assessment and Plan Assess & Plan/Chief Complaint Ms. Luda Arroyo is a 46 year old female who is now POD4 for small bowel resection, adhesions lysis, and appendectomy for a high grade small bowel obstruction. She had a bowel movement and has been passing flatus since last night. Diagnosis/Problems Diagnosis/Problems (1) S/P small bowel resection Status: Acute Assessment & Plan: POD4 for small bowel resection, adhesions lysis, and appendectomy for a high grade small bowel obstruction. Patient had a bowel movement last night and has been passing flatus since then. She was advanced to a regular diet this morning and has been tolerating it well. - Surgery following - Cont to monitor on regular diet - Start Ibuprofen 600mg q8 PRN for mild pain - Start Hydrocodone/Acetaminophen 5/325 q6 PRN for mod pain - Cont Fentanyl 25 mcg IV q2 PRN for sev pain - Cont Zofran 4mg PRN for nausea - PT/OT ordered (2) Hypertension Status: Resolved Assessment & Plan: Likely secondary to pain. 04/14: normotensive - Continue to monitor as pain hopefully becomes more manageable. Resolution Date/Time: 04/14/22 @ 11:28 (3) Nausea and vomiting Status: Acute Assessment & Plan: Nausea and vomiting are controlled at this time. - Cont Zofran 4 mg PRN and Phenergan 12.5mg PRN - Cont Pantoprazole 40mg daily (4) Hypomagnesemia Status: Acute Assessment & Plan: 04/14 M.3, K 3.6 - Start Magnesium 1g IV x 2 doses for a total of 2 grams. - Start Potassium 10mEq IV x 2 doses (5) Substance abuse Status: Chronic Assessment & Plan: Past methamphetamine use. CARROL SUAREZ DO 04/14/22 2030: Supervisory-Addendum Brief Verification & Attestation Participated in pt care: history, MDM, physical Personally performed: exam, history, MDM, supervision of care Care discussed with: Medical Student Procedures: n/a Results interpretation: Verified all documentation Verification and Attestation of Medical Student E/M Service A medical student performed and documented this service in my presence. I reviewed and verified all information documented by the medical student and made modifications to such information, when appropriate. I personally performed the physical exam and medical decision making. Carrol Suarez, Apr 14, 2022,20:30 PATRICIA PRATT Apr 14, 2022 11:08 CARROL SUAREZ DO Apr 14, 2022 20:30
[2022-04-14] MEDS: IBUPROFEN 600 MG (MOTRIN) TAB PO PRN ×2 (11:37→16:43)
[2022-04-14 11:40] VITALS: BP 135/80
[2022-04-14] MEDS: NS IV 500 ML 500 ML IV PRN (13:05)
[2022-04-14] MEDS ORDERED: IBUPROFEN 600 MG (MOTRIN) TAB PO SCH (14:00)
[2022-04-14 15:30] VITALS: BP 134/78
--- NOTE | 2022-04-14 15:33 | Discharge Inst-Surgical ---
Discharge Inst-Surgical Depart Medication/Instructions New, Converted or Re-Newed RX: Other (resume home meds, OTC meds for pain) Patient Instructions Follow up Appt: Make appointment for 1 week. [phone] Instructions: No lifting greater than 20 pounds. No strenuous activity. May shower in 24 hours, no tub bath or soaking. Use incentive spirometer at home as directed. No Smoking Skin/Wound Care: May remove bandages in am. You need to leave the Dermabond on incision it will fall off on it's own. Symptoms to Report: Appetite Changes, Extremity Discoloration, Numbness/Tingling, Swelling Increased, Bleeding Excessive, Eyesight Changes, Pain Increased, Urine Color Change, Constipation(Persistent), Fever over 101 degree F, Pain/Pressure in chest, Urinating Difficulty, Cough Up/Vomit Blood, Heart Beat Irreg/Pounding, Pain/Pressure in jaw, Cramps in feet or legs, Lightheadedness, Pain/Pressure in shoulder, Diarrhea(Persistent), Memory Changes Suddenly, Questions/Concerns, Weight gain consecutive days, Dizziness/Fainting, Nausea/Vomiting, Shortness of Breath, Weight gain over 2 pounds If questions or concerns contact your physician Or seek help at emergency department. Activity Activity as Tolerated: Yes Activity Instructions: Avoid Stress to Incision Diet Discharge Diet: No Restrictions Diet After 24 Hours: Clear Liquid if Nauseous If Any Problems/Questions/Issu: Contact Your Physician, Go to Emergency Room Skin/Wound Care Infection Signs and Symptoms: Increased Redness, Foul Odor of Wound, Increased Drainage, Skin Itchy or Has a Rash, Increased Swelling, Temperature Above 101 F Bathing Instructions: Shower Stitches/Chun/Dermabond Dis: Care of KELSEY Toribio DO Apr 14, 2022 15:33
[2022-04-14 17:00] VITALS: BP 134/78
--- NOTE | 2022-04-14 20:31 | Discharge Summary ---
Discharge Summary Hospital Course Was the Problem List Reviewed?: Yes Problems/Dx: (1) S/P small bowel resection Status: Acute (2) Hypertension Status: Resolved (3) Nausea and vomiting Status: Acute (4) Hypomagnesemia Status: Acute (5) Substance abuse Status: Chronic Hospital Course Date of Admission: Apr 08, 2022 at 22:27 Admission Diagnosis : Family Physician/Provider: [place] Date of Discharge: 04/14/22 Discharge Diagnosis: SBO Hospital Course: Hospital course: Ms. Luad Arroyo is a 46 y/o female with a PMH of asthma, HTN, previous small bowel resection, hysterectomy, and meth use who presented to the ED on 04/08/22 with intractable nausea and vomiting. She was found to have a high grade small bowel obstruction and proceeded to have a small bowel resection with adhesion lysis and appendectomy. After surgery her pain was controlled and her bowels eventually started moving on post-operative day 3. She ambulated well throughout her stay. Her potassium and magnesium were repleted as needed. She had a follow up acute abdominal series xray which showed a small volume pneumoperitoneum. Otherwise she had no other complications during her stay. She is stable for discharge. Labs and Pending Lab Test: Laboratory Tests 04/14/22 04:58: White Blood Count 7.7, Red Blood Count 3.01L, Hemoglobin 9.8L, Hematocrit 29L, Mean Corpuscular Volume 96, Mean Corpuscular Hemoglobin 33, Mean Corpuscular Hemoglobin Concent 34, Red Cell Distribution Width 11.1, Platelet Count 302, Mean Platelet Volume 9.5, Immature Granulocyte % (Auto) 0, Neutrophils (%) (Auto) 75, Lymphocytes (%) (Auto) 13, Monocytes (%) (Auto) 9, Eosinophils (%) (Auto) 2, Basophils (%) (Auto) 1, Neutrophils # (Auto) 5.8, Lymphocytes # (Auto) 1.0, Monocytes # (Auto) 0.7, Eosinophils # (Auto) 0.2, Basophils # (Auto) 0.0, Immature Granulocyte # (Auto) 0.0, Sodium Level 136, Potassium Level 3.6, Chloride Level 103, Carbon Dioxide Level 22, Anion Gap 11, Blood Urea Nitrogen 7, Creatinine 0.57L, Estimat Glomerular Filtration Rate 112, BUN/Creatinine Ratio 12, Glucose Level 100, Calcium Level 8.1L, Corrected Calcium 9.1, Magnesium Level 1.3L, Total Bilirubin 0.3, Aspartate Amino Transf (AST/SGOT) 20, Alanine Aminotransferase (ALT/SGPT) 22, Alkaline Phosphatase 54, Total Protein 5.1L, Albumin 2.7L Home Meds Active Golytely Solution (Peg/Electrolytes) 236-22.74G Soln 4,000 Ml PO ONCE Docusate Sodium 100 Mg Capsule 100 Mg PO BID Potassium Chloride 10 Meq Tab.er.prt 20 Meq PO DAILY 14 Days # 7 FILLED 04-02-2022 Lisinopril 5 Mg Tablet 5 Mg PO HS Hold until seen by PCP and PO intake improves Reported Ibuprofen 200 Mg Tablet 400-600 Mg PO Q8H PRN Tylenol Extra Strength (Acetaminophen) 500 Mg Tablet 1,000 Mg PO Q6H PRN Excedrin Migraine Caplet (Aspirin/Acetaminophen/Caffeine) 250 Mg-250 Mg-65 Mg Tablet 2 Each PO Q6-8HR PRN Ondansetron Odt (Ondansetron) 4 Mg Tab.rapdis 4 Mg PO Q6H PRN Probiotic (L.acidoph & Paracasei,B.lactis) 1 Each Capsule 1 Each PO DAILY Multi-Vitamin Daily (Multivitamin) 1 Each Tablet 1 Ea PO DAILY Bronkaid Max (Ephedrine Sulfate) 25 Mg Tablet 25 Mg PO Q6H PRN Proair Hfa (Albuterol Sulfate) 1 Puff Puff 2 Puff IH Q4H PRN Assessment/Pt Instructions PCP 1 week Discharge Planning: <30 minutes discharge planning Discharge Instructions Discharge Diet: No Restrictions Activity as Tolerated: Yes Discharge Physical Examination Vital Signs Vital Signs Date Time Temp Pulse Resp B/P (MAP) Pulse Ox O2 Delivery O2 Flow Rate FiO2 04/14/22 17:00 36.5 102 18 134/78 100 Room Air 0.00 General Appearance: No Apparent Distress, WD/WN, Chronically ill Allergies: Uncoded Allergies: OPIOIDS (Adverse Reaction, Mild, Vomiting, 11/11/20) REPORTS SENSITIVITY TO OPIOIDS-N/V Discharge Summary Date of Admission Apr 08, 2022 at 22:27 Date of Discharge Apr 14, 2022 at 17:00 Discharge Diagnosis Ambulating (1) S/P small bowel resection Status: Acute Assessment & Plan: POD4 for small bowel resection, adhesions lysis, and appe ndectomy for a high grade small bowel obstruction. Patient had a bowel movement last night and has been passing flatus since then. She was advanced to a regular diet this morning and has been tolerating it well. - Surgery following - Cont to monitor on regular diet - Start Ibuprofen 600mg q8 PRN for mild pain - Start Hydrocodone/Acetaminophen 5/325 q6 PRN for mod pain - Cont Fentanyl 25 mcg IV q2 PRN for sev pain - Cont Zofran 4mg PRN for nausea - PT/OT ordered (2) Hypertension Status: Resolved Assessment & Plan: Likely secondary to pain. 04/14: normotensive - Continue to monitor as pain hopefully becomes more manageable. (3) Nausea and vomiting Status: Acute Assessment & Plan: Nausea and vomiting are controlled at this time. - Cont Zofran 4 mg PRN and Phenergan 12.5mg PRN - Cont Pantoprazole 40mg daily (4) Hypomagnesemia Status: Acute Assessment & Plan: 04/14 M.3, K 3.6 - Start Magnesium 1g IV x 2 doses for a total of 2 grams. - Start Potassium 10mEq IV x 2 doses (5) Substance abuse Status: Chronic Assessment & Plan: Past methamphetamine use. JALEESA SUAREZ DO Apr 14, 2022 20:31
== END 2022-04-14 17:00 | disposition home or self-care (01) | DRG 330 ==
LOC: EDUNIT# 18:22 → ER 18:23 → 4TH 22:27
PROVIDERS: ADMIT Family Medicine; ATTEND Internal Medicine
PROC: 0DTJ0ZZ Resection of Appendix, Open Approach (ICD-10-PCS; 2022-04-10)
PROC: 0DN80ZZ Release Small Intestine, Open Approach (ICD-10-PCS; 2022-04-10)
PROC: 0DB80ZZ Excision of Small Intestine, Open Approach (ICD-10-PCS; principal; 2022-04-10 11:47)
DX: K56.51 Intestinal adhesions [bands], with partial obstruction (principal); E87.1 Hypo-osmolality and hyponatremia; N17.9 Acute kidney failure, unspecified; E87.6 Hypokalemia; E86.0 Dehydration; Z79.82 Long term (current) use of aspirin; Z79.899 Other long term (current) drug therapy; F17.210 Nicotine dependence, cigarettes, uncomplicated; I10 Essential (primary) hypertension; J45.909 Unspecified asthma, uncomplicated; K58.9 Irritable bowel syndrome, unspecified; M41.9 Scoliosis, unspecified; F41.9 Anxiety disorder, unspecified; G43.909 Migraine, unspecified, not intractable, without status migrainosus; F15.90 Other stimulant use, unspecified, uncomplicated; E83.42 Hypomagnesemia; D72.829 Elevated white blood cell count, unspecified; E87.8 Other disorders of electrolyte and fluid balance, not elsewhere classified; R06.89 Other abnormalities of breathing; E78.00 Pure hypercholesterolemia, unspecified
CPT/HCPCS: 36415; 36569; 74018; 74019; 74022; 74176; 76937; 80048; 80053; 82550; 83605; 83690; 83735; 84100; 85007; 85025; 85027; 86141; 96361; 96374; 96376